=== PATIENT | female | born 1945 | race Caucasian/White ===

== ENCOUNTER 2017-02-19 11:46 | Emergency (ER) | payer MEDICARE | END 2017-02-19 11:52 | disposition left against medical advice (07) | LOC: UCEAST 11:46 | DX: S99.929A Unspecified injury of unspecified foot, initial encounter (principal); X58.XXXA Exposure to other specified factors, initial encounter; Y92.9 Unspecified place or not applicable ==

== ENCOUNTER 2017-03-30 07:49 | Day surgery (SDC) | payer MEDICARE ==
--- NOTE | 2017-03-12 09:47 | HP ---
PREOPERATIVE HISTORY AND PHYSICAL: DATE OF ADMISSION/SURGERY: 03/30/17 [facility] DATE OF OFFICE VISIT/ENCOUNTER: 03/07/17 ATTENDING SURGEON: Zenaida Santos MD * (DICTATED BY JAMAL CISNEROS) PROCEDURE: Excision mass, left index finger. ENAMEL BUFFER: Dr. Fernández. PRIMARY CARE PROVIDER: Dr. Swain. CHIEF COMPLAINT: Left index finger mass. HISTORY OF PRESENT ILLNESS: This is a 72-year-old female, who complaints of lump on the dorsal aspect of her left index finger. She denies any injury. She denies any pain, but it is quite bothersome and it gets in the way with use of her hand. The lump has been present for a few months. The patient denies any associated numbness or tingling. She would like to have it removed surgically. The patient has a history of atrial fibrillation, cardiomyopathy, and coronary artery disease. She is on Xarelto and we will plan on having her stay on that perioperatively. We will also obtain clearance from her thread cutter tender, Dr. Fernández, prior to surgery. PAST MEDICAL HISTORY: 1. Cardiomyopathy. 2. Coronary artery disease. 3. Atrial fibrillation. 4. Arthritis. 5. Hypertension. 6. Hypercholesterolemia. 7. Migraine headaches. PAST SURGICAL HISTORY: 1. Gastric bypass. 2. Plastic surgery - under artem zaman. 3. Cholecystectomy. 4. Appendectomy. 5. Cardiac catheterization in 2014. CURRENT MEDICATIONS: 1. Amiodarone HCl 200 mg daily. 2. Aspirin 81 mg daily. 3. Atorvastatin calcium 20 mg daily. 4. B12 injection 1 q. month. 5. Caltrate plus D 600/800 twice a day. 6. Hydromorphone HCl ER 8 mg 1 tab b.i.d. as needed for migraine pain. 7. Lisinopril 10 mg daily. 8. Magnesium oxide 500 mg b.i.d. 9. Metoprolol succinate ER 100 mg daily. 10. Oxycodone HCl p.r.n. 11. Torsemide 10 mg 1 tablet daily p.r.n. 12. Vitamin D3 1000 units 2 tabs daily. 13. Xarelto 20 mg daily. ALLERGIES: No known drug allergies. FAMILY MEDICAL HISTORY: Heart disease, diabetes, and cancer. SOCIAL HISTORY: The patient is retired. She denies smoking cigarettes, denies recreational drug use, and denies alcohol use. REVIEW OF SYSTEMS: General: Positive for fatigue, negative for fevers, chills , or night sweats. No known anesthesia problems. HEENT: Positive for migraine headaches. egative for lightheadedness or syncopal episodes. Integumentary: Negative for abrasions, lesions, or open wounds. Cardiothoracic : Positive for palpitations and hypertension. Negative for chest pain or edema. Pulmonary: Positive for shortness of breath with exertion. Negative for chronic cough or COPD. GI: Negative for nausea, vomiting, diarrhea, constipation, or GERD. : Negative for nocturia, urinary frequency, urgency, history of UTIs, or kidney problems. Musculoskeletal: Positive for current complaint. Positive for arthritis. Negative for chronic or intermittent back pain or history of fractures. Neurologic: Negative for paresthesias, numbness, history of seizures, stroke, or epilepsy. Endocrine: Negative for diabetes or thyroid issues. Hematologic: Positive for easy bruising and bleeding secondary to Xarelto. Negative for history of DVT. Infectious Disease: Negative for history of MRSA, hepatitis C, or HIV. PHYSICAL EXAMINATION GENERAL: Well-developed, well-nourished, 72-year-old female, in no acute distress. VITAL SIGNS: Height 5 feet 7 inches, weight 195 pounds. Pulse rate 76, blood pressure 134/84. HEENT: Normocephalic, atraumatic. Pupils are equal, round, and reactive to light and accommodation. Extraocular movements are intact. NECK: Supple. No palpable lymph nodes. Throat is clear. PULMONARY: Lungs are clear to auscultation bilaterally. No wheezes, rales, or rhonchi. CARDIOVASCULAR: Regular rate and rhythm. S1 and S2. No murmurs, rubs, or gallops. No edema. ABDOMEN: Positive bowel sounds, soft, nontender. NEUROLOGICAL: Alert and oriented x3. Cranial nerves II through XII are intact. Sensation is intact to light touch. MUSCULOSKELETAL: On exam of her left hand, she has a cystic mass on the dorsal aspect of the left index finger DIP joint, is minimally tender to palpation. She has good range of motion in flexion and extension of the finger at the DIP joint. She can make a fist. The skin is quite thinned over the top of the mass , but there are no open areas. Neurovascular function is intact. DIAGNOSTIC STUDIES: X-ray AP, lateral, and oblique, of the left index finger showed mild degenerative changes. IMPRESSION: Left index finger mucous cyst. PLAN: The patient is scheduled to undergo an excision mass, left index finger, with Dr. Santos on 03/30/17. She will return to the office 10 to 14 days postop for followup and suture removal. She has pain medications already at home that she uses for arthritis pain as prescribed by Dr. Swain. We will get cardiac clearance from the patient's thread cutter tender, Dr. Fernández, prior to proceeding with surgery. JAMAL CISNEROS [id number]/[facility] #: [id number] MTDIbeth
[~2017-03-30 07:49] MED LIST: Buffered Lidocaine 0.9% SYRIN* 5 ML/SYR SYRINGE INTRADERM ONE; NS 0.9% 1000 ML* 1,000 ML IV SCH
[2017-03-30] MEDS ORDERED: Midazolam* 1 MG/ML 2 ML VIAL (2 MG) ONE (08:15)
[2017-03-30] MEDS ORDERED: fentaNYL* 50 MCG/ML 2 ML VIAL (100 MCG VIAL) ONE (08:15)
[2017-03-30] MEDS ORDERED: KETAMINE HCL* 50 MG/ML 10 ML VIAL ONE (08:15)
[2017-03-30] MEDS ORDERED: Buffered Lidocaine 0.9% SYRIN* 5 ML/SYR SYRINGE ONE (08:24)
[2017-03-30] MEDS ORDERED: Lidocaine 1% INJ* 10 MG/ML 30 ML SDV ONE (08:37)
[2017-03-30] MEDS ORDERED: Acetaminophen TAB* 325 MG PO PRN (09:12)
[2017-03-30] MEDS ORDERED: oxyCODONE TAB* 5 MG TAB PO PRN (09:12)
[2017-03-30] MEDS ORDERED: Ondansetron INJ* 2 MG/ML VIAL IV PRN (09:12)
[2017-03-30] MEDS ORDERED: Lidocaine 2% PF * 5 ML VIAL ONE (09:18)
[2017-03-30] MEDS ORDERED: Propofol* 10 MG/ML 20 ML BTL IV PUSH ONE (09:18)
[2017-03-30 10:05] VITALS: BP 125/73
--- NOTE | 2017-03-30 10:40 | OP ---
DATE OF OPERATION: 03/30/17 [facility] DATE OF : 49 SURGEON: Zenaida Santos MD. CUSTOMER CARE PROFESSIONAL: JAMAL Zepeda. ANESTHESIOLOGIST: Dr. Feliciano ANESTHESIA: Local MAC. PRE-OP DIAGNOSIS: Left index finger mass. POST-OP DIAGNOSIS: Left index finger mass. OPERATIVE PROCEDURE: Removal left index finger mass. ESTIMATED BLOOD LOSS: Zero. TOURNIQUET TIME: About 10 minutes. INDICATIONS FOR PROCEDURE: Lily is a 72-year-old female with a painful mass on the dorsa aspect of her left index finger DIP joint. She presents for removal. DESCRIPTION OF PROCEDURE: The patient was brought to the operating room, was given a sedation anesthetic, and a local infiltration of 10 cc of 1% plain lidocaine as a digital block of the left index finger. The skin of her left upper extremity was prepped and draped in the usual sterile fashion. A tournicot was placed over the left index finger and than an H-shaped incision was made on the dorsal aspect of the DIP joint. Skin flaps were elevated and the skin was elevated from over the top of the ganglion cyst. There was a large ganglion cyst, and it was dissected off of the nailbed and the extensor tendon, and traced with its stalk down to the DIP joint capsule. The mass was sent for pathology. Both sides of the extensor tendon were incised longitudinally, and the underlying osteophyte removed with a rongeur. The wound was irrigated, and the skin edges reapproximated with 4-0 nylon suture. The wound was dressed with Xeroform, 4x4, Webril, and Coban. The patient tolerated the procedure well, and was brought to the recovery room in good condition. [id number]/[facility] #: [id number] [facility]
== END 2017-03-30 10:00 | disposition home or self-care (01) ==
LOC: OREAST 07:49
PROVIDERS: ATTEND Orthopaedic Surgery
DX: M67.442 Ganglion, left hand (principal); I42.9 Cardiomyopathy, unspecified; I25.10 Atherosclerotic heart disease of native coronary artery without angina pectoris; I48.91 Unspecified atrial fibrillation; I10 Essential (primary) hypertension; E78.00 Pure hypercholesterolemia, unspecified; G43.909 Migraine, unspecified, not intractable, without status migrainosus; Z79.82 Long term (current) use of aspirin; Z79.01 Long term (current) use of anticoagulants
CPT/HCPCS: 88304; J2001; J2250; J2704; J3010

== ENCOUNTER 2017-08-02 13:24 | Emergency (ER) | payer MEDICARE ==
[2017-08-02 13:39] VITALS: BP 136/72
--- NOTE | 2017-08-02 14:32 | RAD ---
HISTORY: Right leg injury, subacute, COMPARISONS: None VIEWS: 3, Frontal and lateral views of the right foreleg FINDINGS: BONE DENSITY: There is diffuse osteopenia. BONES: There is no displaced fracture. JOINTS: There is no arthropathy. ALIGNMENT: There is no dislocation. SOFT TISSUES: Unremarkable. OTHER FINDINGS: None. IMPRESSION: OSTEOPENIA. NO ACUTE OSSEOUS INJURY. THE DEGREE OF OSTEOPENIA MAY MAKE A NONDISPLACED FRACTURE RADIOGRAPHICALLY OCCULT. IF SYMPTOMS PERSIST, RECOMMEND REPEAT IMAGING.
--- NOTE | 2017-08-07 16:15 | UC ---
Lower Extremity/Ankle HPI - HPI Summary HPI Summary: right lower leg bruising pain fell over a chair 5 days ago - History of Current Complaint Chief Complaint: UCLowerExtremity Stated Complaint: LEG INJURY/PAIN Time Seen by Provider: 08/02/17 13:46 Hx Obtained From: Patient Hx Last Menstrual Period: NA ?: No Onset/Duration: Sudden Onset, Lasting Days - 5 Severity Initially: Moderate Severity Currently: Moderate Pain Intensity: 6 Pain Scale Used: 0-10 Numeric Aggravating Factor(s): Nothing Alleviating Factor(s): Rest, Elevation Able to Bear Weight: Yes - Allergies/Home Medications Allergies/Adverse Reactions: Allergies Allergy/AdvReac Type Severity Reaction Status Date / Time No Known Allergies Allergy Verified 08/02/17 13:39 PMH/Surg Hx/FS Hx/Imm Hx Previously Healthy: No Endocrine History: Hypothyroidism Cardiovascular History: Cardiac Disease, Hypertension GI/ History: Gastroesophageal Reflux - Surgical History Surgical History: Yes Surgery Procedure, Year, and Place: Jujunum/illium bypass 1976,,,APP. TUMMY TUCK - COSMETIC, HEMATOMA REMOVED FROM UNDER CHIN. TONSILECTOMY - Family History Known Family History: Positive: Cardiac Disease, Hypertension, Diabetes - Social History Occupation: Retired Lives: With Family Alcohol Use: None Substance Use Type: None Smoking Status (MU): Never Smoked Tobacco - Immunization History Most Recent Influenza Vaccination: 2016 Most Recent Tetanus Shot: UTD Most Recent Pneumonia Vaccination: never Review of Systems Constitutional: Negative Skin: Negative Eyes: Negative ENT: Negative Respiratory: Negative Cardiovascular: Negative Gastrointestinal: Negative Genitourinary: Negative Motor: Negative Neurovascular: Negative Musculoskeletal: Arthralgia - right lower leg Neurological: Negative Psychological: Negative Is Patient Immunocompromised?: No All Other Systems Reviewed And Are Negative: Yes Physical Exam Triage Information Reviewed: Yes Appearance: Well-Appearing, No Pain Distress, Well-Nourished Vital Signs: Initial Vital Signs Temp 97.9 F 08/02/17 13:37 Pulse 81 08/02/17 13:37 Resp 16 08/02/17 13:37 BP 136/72 08/02/17 13:37 Pulse Ox 100 08/02/17 13:37 Vital Signs Reviewed: Yes Eye Exam: Normal Eyes: Positive: Conjunctiva Clear ENT Exam: Normal ENT: Positive: Normal ENT inspection, Hearing grossly normal, Pharynx normal. Negative: Nasal drainage, TMs normal, Tonsillar swelling, Tonsillar exudate, Sinus tenderness Dental Exam: Normal Neck exam: Normal Neck: Positive: Supple, Nontender, No Lymphadenopathy Respiratory Exam: Normal Respiratory: Positive: Chest non-tender, No respiratory distress, No accessory muscle use Cardiovascular Exam: Normal Cardiovascular: Positive: RRR, Pulses Normal, Brisk Capillary Refill Musculoskeletal Exam: Normal Musculoskeletal: Positive: Strength Intact, ROM Intact, Edema @ - anterior right lower leg swelling and eechymosis Neurological Exam: Normal Neurological: Positive: Alert, Muscle Tone Normal Psychological Exam: Normal Skin Exam: Other Skin: Positive: Other - bruising and erythema right anterior lower leg Lower Extremity Course/Dx - Course Course Of Treatment: elevate rest carlos wrap follow with pcp - Differential Dx/Diagnosis Provider Diagnoses: Contusion/hematoma right anterior lower leg Discharge - Discharge Plan Condition: Stable Disposition: HOME Patient Education Materials: Contusion in Adults (ED), Hematoma (ED) Referrals: Manoj Swain MD [Primary Care Provider] - 1 Week
== END 2017-08-02 15:05 | disposition home or self-care (01) ==
LOC: UCEAST 13:24
DX: S80.11XA Contusion of right lower leg, initial encounter (principal); W01.0XXA Fall on same level from slipping, tripping and stumbling without subsequent striking against object, initial encounter; Y93.9 Activity, unspecified; Y92.9 Unspecified place or not applicable; E03.9 Hypothyroidism, unspecified; I51.9 Heart disease, unspecified; I10 Essential (primary) hypertension; K21.9 Gastro-esophageal reflux disease without esophagitis
CPT/HCPCS: 99211; G0463

== ENCOUNTER 2018-07-17 17:43 | Inpatient (IN) | payer MEDICARE ==
[2018-07-17] MEDS ORDERED: Morphine VIAL* 4 MG/ML VIAL (1 ml vial) IV ONE (18:01)
[2018-07-17] MEDS ORDERED: NS 0.9% 1000 ML* 1,000 ML IV ONE (18:03)
--- OUTSIDE RECORDS SUMMARY | 2018-07-17 18:22 | XMS REPORT | Continuity of Care Document ---
:1945 External Reference #:[id number] Author Name Libradoghada Charly Care Team Providers Name Role Phone Godwin Swain MD Primary Care Physician Unavailable Payers Type Date Identification Numbers Payment Provider Subscriber Effective: Policy Number: [id number] Medicare Lily Waite 2011 PayID: [id number] [address] [place] [address] Policy Number: [id number] [facility] Lily Waite PayID: [id number] [address] [place] [address] Advance Directives Description No Information Available Problems Date Description Provider Status Onset: 09/19/2011 Electrocardiogram abnormal Juan Mccrary M.D. Onset: 11/04/2012 Atrial fibrillation Juan Mccrary M.D. Onset: 11/04/2012 Tachycardia Juan Mccrary M.D. Onset: 09/18/2013 Mitral valve disorder Juan Mccrary M.D. Onset: 09/18/2013 Premature beats Juan Mccrary M.D. Onset: 09/18/2013 Supraventricular premature beats Juan Mccrary M.D. Onset: 06/09/2014 Localized, primary osteoarthritis James Amin M.D. Active Onset: 06/23/2014 Myalgia & Myositis Unspecified James Amin M.D. Active Onset: 06/23/2014 Brachial plexus disorder James Amin M.D. Active Onset: 01/28/2015 Primary cardiomyopathy Clint Fernández M.D., [facility], Active [facility] Onset: 01/28/2015 Chronic ischemic heart disease Clint Fernández M.D., [facility], Active [facility] Onset: 02/25/2015 Hypoxemia Fazal Still M.D. Active Onset: 02/25/2015 Disturbance in sleep behavior Fazal Still M.D. 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 [employer] Tobacco Use Start: Unknown Never Smoked Cigarettes Smoking Status Reviewed: 07/01/18 Never Smoked Cigarettes ETOH Use Denies alcohol use Tobacco Use Start: Unknown Patient has never smoked Recreational Drug Use Denies Drug Use Exercise Type/Frequency Exercises sporadically walking, pt has bad knees Allergies, Adverse Reactions, Alerts Description No Known Drug Allergies Medications Medication Date Status Form Strength Qnty SIG Indications Ordering Provider Metoprolol 09/09/ Active Tablets ER 50mg 1 by Clint Succinate ER 2018 24HR mouth Stefek, every day Robson.Faith, [facility] Xarelto 07/30/ Active Tablets 10mg 90tabs 1 by Clint 2016 mouth Stefek, every day Robson.Faith, [facility], [facility] Magnesium Oxide 10/28/ Active Tablets 500mg 180tab take 1 Clint 2015 s tablet by Stefek, mouth bid M.Faith, [facility], [facility] Atorvastatin 05/26/ Active Tablets 20mg 90tabs take 1 Clint Calcium 2015 tablet at Stefek, bedtime Van, [facility], [facility] Caltrate 600+D 02/24/ Active Chewtabs 600-800mg- take 1 Unknown Soft 2014 Unit tablet by mouth once a day Hydromorphone 02/24/ Active T24a 8mg 1 tab Unknown HCL ER 2014 twice a day as needed migrain pain Aspir-81 12/07/ Active Tablets DR 81mg 1 by Unknown 2015 mouth every day B12 Inject 07/01/ Active one q Desean 2008 month SLuma Parra M.D. Vitamin D3 04/24/ Active Tablets 1000Unit 90tabs 2 tab po Thananart, 2007 qd Van Kenney Amiodarone HCL / Active Tablets 200mg 30tabs 1 tab by Desean 0000 mouth S. every day Van Parra Torsemide / Active Tablets 10mg 1 tablet Unknown 0000 po daily if weight is >3lbs as needed Lisinopril / Active Tablets 10mg 90tabs 1 by Clint 0000 mouth Stefek, every day Robson.Faith, [facility] Oxycodone HCL / Active prn Unknown 0000 Oxybutynin / Active Tablets ER 15mg 1 by Unknown Chloride ER 0000 24HR mouth every day Guanfacine HCL / Active Tablets 1mg 90tabs 1 by Unknown 0000 mouth every day Duloxetine HCL / Active Caps DR 60mg 1 by Unknown 0000 Part mouth every day Xarelto 09/29/ Hx Tablets 20mg 90tabs 1 by Clint 2016 - mouth Stefek, 09/09/ every day Van, 2018 [facility] Magnesium Oxide 10/18/ Hx Capsules 400mg 60caps one pill Clint 2016 - twice a Stefek, 10/18/ day M.D., 2015 [facility], [facility] Magnesium Oxide 10/18/ Hx Tablets 400mg 180tab 1 by Clint 2016 - s mouth Stefek, 10/28/ twice a M.D., 2015 [facility], [facility] Metoprolol 07/29/ Hx Tablets ER 100mg 90tabs 1 by Clint Succinate ER 2014 - 24HR mouth Stefek, 09/10/ every day M.D., 2017 [facility], [facility] Atorvastatin 02/24/ Hx Tablets 40mg 90tabs 1 by Clint Calcium 2014 - mouth Stefek, 05/26/ every day M.D., 2014 [facility], [facility] Valium 07/24/ Hx Tablets 5mg 2tabs 1 by Derick Cruz 2013 - mouth 2 Uday, 08/18/ hours M.D. 2014 prior to mri may take one more every 1 hour as needed anxiety Hydromorphone 07/21/ Hx Tablets 2mg 42tabs 1 po tid Derick WORRELL 2013 - prn neck Everest, 07/21/ or arm M.D. 2013 pain Gabapentin 06/22/ Hx Capsules 300mg 90caps 3 by 353.0 Luis Villalta 2013 - mouth Pollack, 12/07/ three M.D. 2014 times a day or as directed. Hydromorphone 04/29/ Hx Tablets 4mg 40tabs 1 -3 by 353.0 Luis JLuma HCL 2013 - mouth Pollack, 07/20/ four M.D. 2013 times a day as needed pain Gabapentin 04/29/ Hx Capsules 300mg 90caps 1 by 353.0 Luis Villalta 2013 - mouth Pollack, 05/10/ three M.D. 2013 times a day or as directed. Oxycodone HCL 04/18/ Hx Tablets 10mg 100tab 1 tablet Other 2012 - s po q6hrs Ordering 07/20/ prn Provider 2013 Bupropion HCL 09/10/ Hx Tablets ER 150mg 30tabs 1 tablet 296.30 Thananart, XL 2008 - 24HR po qday Anne Marie, 09/05/ M.D. 2015 Naproxen 04/16/ Hx Tablets 500mg 60tabs 1 tab po Thananart, 2007 - bid prn Anne Marie, 04/12/ M.D. 2008 Skelaxin 09/04/ Hx Tablets 800mg 30tabs 1 tab po Thananart, 2007 - tid prn Anne Marie, 04/12/ M.D. 2008 Percocet 03/19/ Hx Tablets 5-325mg 40tabs 1-2 tabs Thananart, 2007 - po q6h Anne Marie, 04/12/ prn M.D. 2008 Celexa / Hx Tablets 40mg 30tabs 1 tablet Thananart, 0000 - po qday Anne Marie, 10/08/ M.D. 2014 Oxycodone HCL / Hx Capsules 5mg 1 tab po Unknown 0000 - qid 2008 Digoxin / Hx Tablets 0.25mg 60tabs 1 po qd Unknown 0000 - 2008 Fosamax / Hx Tablets 12tabs one Unknown 0000 - tablet 11/04/ weekly 2012 Dilaudid / Hx Tablets 8mg 180tab 1.5 tabs Unknown 0000 - s po tid 2014 Atorvastatin / Hx Tablets 40mg 1 by Unknown Calcium 0000 - mouth 01/25/ every day 2014 Lisinopril / Hx Tablets 5mg 135tab 1 and 1/2 Clint 0000 - s tabs by Pradeep, 04/19/ mouth M.DLuma, 2014 every day [facility], [facility] Metoprolol / Hx Tablets ER 50mg 90tabs 1 tab by Clint Succinate ER 0000 - 24HR mouth Pradeep, 07/29/ every day M.DLuma, 2014 in the [facility], morning [facility] Duloxetine HCL / Hx 1 tablet Unknown 0000 - po at 02/07/ night 2016 Xenical / Hx Capsules 120mg one Unknown 0000 - capsule 11/16/ by mouth 2017 daily Medications Administered in Office Medication Date Status Form Strength Qnty SIG Indications Ordering Provider Celestone 3 mg Administered Injection Naresh and 3mg 018 Van Conway Depomedrol Administered Injection Naresh 40MG 017 Van Conway Depomedrol Administered Injection Padmini 40MG 017 JAMAL Terry Immunizations CPT Code Status Date Vaccine Lot # [id number] Given 05/27/2009 Influenza Virus 3Yrs & Over [id number] Given 06/01/2008 Influenza Virus 3Yrs & Over [id number] Given 06/01/2008 Influenza Virus 3Yrs & Over [id number] Vital Signs Date Vital Result Comment 07/01/2018 1:54pm Height 67.5 inches 5'7.50" Weight 190.00 lb BP Systolic 116 mmHg BP Diastolic 68 mmHg Respiratory Rate 16 /min Pain Level 8 BMI (Body Mass Index) 29.3 kg/m2 06/05/2018 1:47pm Height 67.5 inches 5'7.50" Weight 189.00 lb BP Systolic 124 mmHg BP Diastolic 80 mmHg Respiratory Rate 20 /min Pain Level 10 BMI (Body Mass Index) 29.2 kg/m2 05/03/2018 3:44pm Height 67.5 inches 5'7.50" Weight 189.00 lb w/shoes Heart Rate 68 /min BP Systolic Sitting 136 mmHg Lue reg cuff BP Diastolic Sitting 94 mmHg Lue reg cuff BMI (Body Mass Index) 29.2 kg/m2 Ejection Fraction 50-55% Echo 05/24/16 10/03/2017 1:20pm Height 67.5 inches 5'7.50" Weight 193.00 lb w/ shoes Heart Rate 72 /min BP Systolic Sitting 128 mmHg lue reg cuff BP Diastolic Sitting 84 mmHg lue reg cuff BP Systolic Standing 128 mmHg lue reg cuff BP Diastolic Standing 84 mmHg lue reg cuff Respiratory Rate 18 /min BMI (Body Mass Index) 29.8 kg/m2 Ejection Fraction 50-55% echo 05/24/16 09/10/2017 1:12pm Height 67.5 inches 5'7.50" Weight 197.00 lb w/ shoes Heart Rate 72 /min BP Systolic Sitting 138 mmHg lue reg cuff BP Diastolic Sitting 92 mmHg lue reg cuff BP Systolic Standing 128 mmHg lue reg cuff BP Diastolic Standing 88 mmHg lue reg cuff Respiratory Rate 18 /min BMI (Body Mass Index) 30.4 kg/m2 Ejection Fraction 50-55% echo 05/24/16 06/13/2017 2:55pm Height 67.5 inches 5'7.50" Weight 180.00 lb Heart Rate 60 /min BP Systolic 130 mmHg BP Diastolic 88 mmHg Body Temperature 97.9 F Pain Level 6 BMI (Body Mass Index) 27.8 kg/m2 05/02/2017 12:52pm Height 67 inches 5'7" Weight 180.00 lb BP Systolic 129 mmHg BP Diastolic 82 mmHg Body Temperature 97.2 F Pain Level 0 BMI (Body Mass Index) 28.2 kg/m2 04/11/2017 1:09pm Height 67 inches 5'7" Weight 180.00 lb BP Systolic 130 mmHg BP Diastolic 82 mmHg Body Temperature 97.6 F Pain Level 0 BMI (Body Mass Index) 28.2 kg/m2 03/12/2017 2:03pm Height 67 inches 5'7" Weight 190.00 lb w/o shoes Heart Rate 68 /min BP Systolic Sitting 132 mmHg Ra reg cuff BP Diastolic Sitting 88 mmHg Ra reg cuff BP Systolic Standing 140 mmHg Ra reg cuff BP Diastolic Standing 90 mmHg Ra reg cuff BMI (Body Mass Index) 29.8 kg/m2 Ejection Fraction 50% - 55% echo 05/24/16 03/07/2017 12:59pm Height 67 inches 5'7" Weight 195.00 lb Heart Rate 76 /min BP Systolic 134 mmHg BP Diastolic 84 mmHg BMI (Body Mass Index) 30.5 kg/m2 02/26/2017 11:09am Height 67 inches 5'7" Weight 180.00 lb Heart Rate 72 /min BP Systolic 130 mmHg BP Diastolic 80 mmHg Respiratory Rate 16 /min Body Temperature 97.2 F BMI (Body Mass Index) 28.2 kg/m2 2017 10:19am Height 67 inches 5'7" Weight 185.00 lb Heart Rate 67 /min BP Systolic 117 mmHg BP Diastolic 71 mmHg Body Temperature 96.6 F BMI (Body Mass Index) 29.0 kg/m2 12/06/2016 1:04pm Height 68 inches 5'8" Weight 195.00 lb BP Systolic 115 mmHg BP Diastolic 72 mmHg Respiratory Rate 17 /min Body Temperature 97.7 F Pain Level 10 BMI (Body Mass Index) 29.6 kg/m2 09/13/2016 1:30pm Height 68 inches 5'8" Weight 195.00 lb Heart Rate 68 /min BP Systolic Sitting 124 mmHg BP Diastolic Sitting 72 mmHg Respiratory Rate 16 /min Pain Level 2 BMI (Body Mass Index) 29.6 kg/m2 06/07/2016 3:25pm Height 68 inches 5'8" Weight 196.00 lb Heart Rate 78 /min 88 BP Systolic Sitting 108 mmHg right arm, reg cuff BP Diastolic Sitting 82 mmHg right arm, reg cuff BP Systolic Standing 106 mmHg right arm, reg cuff BP Diastolic Standing 82 mmHg right arm, reg cuff Respiratory Rate 14 /min BMI (Body Mass Index) 29.8 kg/m2 Ejection Fraction 50-55% 05/24/16 04/19/2016 1:33pm Height 68 inches 5'8" Weight 196.00 lb Heart Rate 72 /min 86 BP Systolic Sitting 126 mmHg right arm, reg cuff BP Diastolic Sitting 80 mmHg right arm, reg cuff BP Systolic Standing 122 mmHg right arm, reg cuff BP Diastolic Standing 80 mmHg right arm, reg cuff Respiratory Rate 14 /min BMI (Body Mass Index) 29.8 kg/m2 Ejection Fraction 45-50% 03/25/15 02/09/2016 3:27pm Height 68 inches 5'8" Weight 187.00 lb Heart Rate 72 /min 86 BP Systolic Sitting 122 mmHg right arm, reg cuff BP Diastolic Sitting 84 mmHg right arm, reg cuff BP Systolic Standing 116 mmHg right arm, reg cuff BP Diastolic Standing 84 mmHg right arm, reg cuff Respiratory Rate 14 /min BMI (Body Mass Index) 28.4 kg/m2 Ejection Fraction 45-50% 03/25/15 10/15/2015 3:09pm Height 68 inches 5'8" Weight 191.00 lb with shoes Heart Rate 64 /min 72 BP Systolic Sitting 134 mmHg right arm, reg cuff BP Diastolic Sitting 86 mmHg right arm, reg cuff BP Systolic Standing 128 mmHg right arm, reg cuff BP Diastolic Standing 86 mmHg right arm, reg cuff Respiratory Rate 14 /min BMI (Body Mass Index) 29.0 kg/m2 Ejection Fraction 45-50% 03/25/15 09/06/2015 1:08pm Height 68 inches 5'8" Weight 186.00 lb with boots Heart Rate 76 /min 82 BP Systolic Sitting 108 mmHg right arm, reg cuff BP Diastolic Sitting 66 mmHg right arm, reg cuff BP Systolic Standing 106 mmHg right arm, reg cuff BP Diastolic Standing 66 mmHg right arm, reg cuff Respiratory Rate 14 /min BMI (Body Mass Index) 28.3 kg/m2 Ejection Fraction 45-50% 03/25/15 04/20/2015 3:16pm Height 68 inches 5'8" Weight 175.00 lb Heart Rate 72 /min 80 BP Systolic Sitting 104 mmHg left arm, reg cuff BP Diastolic Sitting 78 mmHg left arm, reg cuff BP Systolic Standing 104 mmHg left arm, reg cuff BP Diastolic Standing 76 mmHg left arm, reg cuff Respiratory Rate 14 /min BMI (Body Mass Index) 26.6 kg/m2 Ejection Fraction 45-50% 03/25/15 03/29/2015 3:15pm Height 68 inches 5'8" Weight 177.00 lb Heart Rate 76 /min 82 BP Systolic Sitting 130 mmHg right arm, reg cuff BP Diastolic Sitting 86 mmHg right arm, reg cuff BP Systolic Standing 126 mmHg right arm, reg cuff BP Diastolic Standing 84 mmHg right arm, reg cuff Respiratory Rate 12 /min BMI (Body Mass Index) 26.9 kg/m2 Ejection Fraction 45-50% 03/25/15 03/03/2015 10:32am Height 68 inches 5'8" Weight 176.00 lb Heart Rate 64 /min BP Systolic 130 mmHg BP Diastolic 70 mmHg Respiratory Rate 12 /min O2 % BldC Oximetry 94 % BMI (Body Mass Index) 26.8 kg/m2 02/25/2015 2:48pm Height 68 inches 5'8" Weight 176.12 lb Heart Rate 76 /min Respiratory Rate 12 /min Body Temperature 98.6 F O2 % BldC Oximetry 99 % BMI (Body Mass Index) 26.8 kg/m2 Neck Circumference in inches 16 02/22/2015 1:45pm Height 68 inches 5'8" Weight 172.00 lb Heart Rate 64 /min 72 BP Systolic Sitting 122 mmHg left arm, reg cuff BP Diastolic Sitting 88 mmHg left arm, reg cuff BP Systolic Standing 108 mmHg left arm, reg cuff BP Diastolic Standing 82 mmHg left arm, reg cuff Respiratory Rate 14 /min BMI (Body Mass Index) 26.1 kg/m2 Ejection Fraction 35% 02/10/15 01/28/2015 10:39am Height 68 inches 5'8" Weight 179.00 lb with shoes Heart Rate 70 /min 70 sit and stand HR BP Systolic 97 mmHg LA reg cuff BP Diastolic 70 mmHg LA reg cuff BP Systolic Sitting 100 mmHg LA reg cuff BP Diastolic Sitting 70 mmHg LA reg cuff Respiratory Rate 17 /min BMI (Body Mass Index) 27.2 kg/m2 Ejection Fraction 25-30% date 12/15/14 ECHO 12/08/2014 1:45pm Height 68 inches 5'8" Weight 185.25 lb w/ shoes Heart Rate 108 /min BP Systolic Sitting 130 mmHg LA, reg BP Diastolic Sitting 102 mmHg LA, reg BMI (Body Mass Index) 28.2 kg/m2 10/09/2014 2:19pm Height 68 inches 5'8" Weight 188.00 lb Heart Rate 108 /min reg BP Systolic 140 mmHg LA reg BP Diastolic 92 mmHg LA reg BMI (Body Mass Index) 28.6 kg/m2 08/19/2014 3:59pm Height 68 inches 5'8" Weight 188.00 lb Heart Rate 76 /min BP Systolic Sitting 140 mmHg BP Diastolic Sitting 92 mmHg Respiratory Rate 16 /min BMI (Body Mass Index) 28.6 kg/m2 07/21/2014 1:56pm Height 68 inches 5'8" Weight 180.00 lb Heart Rate 72 /min BP Systolic Sitting 148 mmHg BP Diastolic Sitting 90 mmHg Respiratory Rate 16 /min BMI (Body Mass Index) 27.4 kg/m2 06/23/2014 3:52pm Height 68 inches 5'8" Weight 185.00 lb Heart Rate 100 /min BP Systolic Sitting 160 mmHg BP Diastolic Sitting 100 mmHg Pain Level 10 BMI (Body Mass Index) 28.1 kg/m2 06/09/2014 1:55pm Height 68 inches 5'8" Weight 184.50 lb Heart Rate 96 /min BP Systolic Sitting 158 mmHg BP Diastolic Sitting 80 mmHg Pain Level 5 BMI (Body Mass Index) 28.1 kg/m2 05/11/2014 2:43pm Height 68 inches 5'8" Weight 179.00 lb Heart Rate 82 /min BP Systolic Sitting 140 mmHg BP Diastolic Sitting 88 mmHg Pain Level 5 R arm BMI (Body Mass Index) 27.2 kg/m2 04/29/2014 9:42am Height 68 inches 5'8" Weight 179.00 lb Heart Rate 96 /min BP Systolic Sitting 136 mmHg BP Diastolic Sitting 94 mmHg Pain Level 9 R arm BMI (Body Mass Index) 27.2 kg/m2 09/18/2013 2:09pm Height 68 inches 5'8" Weight 187.00 lb Heart Rate 100 /min BP Systolic Sitting 146 mmHg BP Diastolic Sitting 82 mmHg BMI (Body Mass Index) 28.4 kg/m2 11/04/2012 2:45pm Height 68 inches 5'8" Weight 189.00 lb Heart Rate 94 /min BP Systolic 132 mmHg BP Diastolic 88 mmHg BMI (Body Mass Index) 28.7 kg/m2 09/19/2011 9:17am Height 68 inches 5'8" Weight 191.00 lb Heart Rate 89 /min BP Systolic Sitting 128 mmHg BP Diastolic Sitting 72 mmHg BMI (Body Mass Index) 29.0 kg/m2 09/16/2010 2:47pm Height 68 inches 5'8" Weight 194.00 lb Heart Rate 113 /min BP Systolic Sitting 110 mmHg sit 112/82 stand BP Diastolic Sitting 80 mmHg sit 112/82 stand BMI (Body Mass Index) 29.5 kg/m2 10/06/2009 10:47am Height 68 inches 5'8" Weight 193.00 lb Heart Rate 64 /min BP Systolic Sitting 120 mmHg L BP Diastolic Sitting 82 mmHg L BMI (Body Mass Index) 29.3 kg/m2 07/01/2009 2:11pm Height 68 inches 5'8" Weight 190.00 lb Heart Rate 81 /min BP Systolic Sitting 144 mmHg L BP Diastolic Sitting 90 mmHg L BMI (Body Mass Index) 28.9 kg/m2 04/12/2009 11:30am Height 68 inches 5'8" Weight 191.00 lb Heart Rate 76 /min BP Systolic Sitting 124 mmHg BP Diastolic Sitting 80 mmHg BMI (Body Mass Index) 29.0 kg/m2 10/12/2008 2:00pm Weight 197.00 lb Heart Rate 76 /min BP Systolic Sitting 128 mmHg BP Diastolic Sitting 84 mmHg 09/10/2008 2:26pm Height 68 inches 5'8" Weight 199.00 lb Heart Rate 74 /min BP Systolic Sitting 134 mmHg BP Diastolic Sitting 86 mmHg BMI (Body Mass Index) 30.3 kg/m2 06/22/2008 11:30am Height 68 inches 5'8" Weight 198.00 lb Heart Rate 68 /min BP Systolic Sitting 136 mmHg BP Diastolic Sitting 82 mmHg BMI (Body Mass Index) 30.1 kg/m2 04/16/2008 11:21am Height 68 inches 5'8" Weight 196.00 lb Heart Rate 88 /min BP Systolic Sitting 106 mmHg BP Diastolic Sitting 76 mmHg BMI (Body Mass Index) 29.8 kg/m2 Results Test Date Facility Test Result H/L Range Note Laboratory test finding 06/12/2018 [facility] Alt 21 U/L N 7- [address] [place] [address] [phone] Ast (Sgot) 16 U/L N 13-39 Basic Metabolic Panel 06/12/2018 [facility] Sodium 137 mmol/L N 135-[address] [place] [address] [phone] Potassium 4.5 mmol/L N 3.5-5.0 Chloride 104 mmol/L N 101-111 Co2 Carbon Dioxide 26 mmol/L N 22-32 Anion Gap 7 mmol/L N 2-11 Glucose 95 mg/dL N 70-100 Blood Urea Nitrogen 23 mg/dL N 6-24 Creatinine 1.16 mg/dL High 0.51-0.95 BUN/Creatinine Ratio 19.8 N 8-20 Calcium 9.1 mg/dL N 8.6-10.3 Egfr Non- 46.1 >60 Egfr 55.7 >60 1 Laboratory test 06/12/2018 [facility] TSH (Thyroid 1.56 N 0.34 -5.[address] Stim Horm) mcIU/[place] [address] [phone] Laboratory test 10/09/2017 [facility] Alt (SGPT) 23 U/L N 7- 52 2, [address] [place] [address] [phone] Ast (Sgot) 19 U/L N 13-39 4 Thyroid Panel 10/09/2017 [facility] Free T4 (Free 0.86 ng/dL N 0.61-1.[address] Thyroxine) [place] [address] [phone] Thyroxine 7.90 g/mL N 6.09-12.23 6 TSH (Thyroid Stim Horm) 1.17 mcIU/mL N 0.34-5.60 7 Laboratory test 10/09/2017 [facility] Alkaline 76 U/L N 34- 104 [address] [place] [address] [phone] Total Bilirubin 0.50 mg/dL N 0.2-1.0 9 Laboratory test 03/30/2017 [facility] Surgical SEE RESULT 10, [address] [place] [address] [phone] Thyroid Panel 03/19/2017 [facility] Free T4 (Free 0.88 ng/dL N 0.61- [address] Thyroxine) 1.12 [place], [place] [id number] [phone] Thyroxine 7.92 g/mL N 6.09-12.23 13 TSH (Thyroid Stim Horm) 1.27 mcIU/mL N 0.34-5.60 14 Laboratory test finding 03/19/2017 [facility] Alt 20 U/L N 7- [address] [place] [address] [phone] Ast (Sgot) 19 U/L N 13-39 16 Alkaline Phosphatase 78 U/L N 34-104 17 Laboratory test finding 11/24/2016 [facility] Alt (SGPT) 24 U/L N 7-[address] [place] [address] [phone] Ast (Sgot) 20 U/L N 13-39 19 Lipid Profile 11/24/2016 [facility] Triglycerides 146 mg/dL N 20 (Trig/Chol/HDL) [address] [place] [address] [phone] Cholesterol 102 mg/dL N 21 HDL Cholesterol 39.5 mg/dL N 22 LDL Cholesterol 33 mg/dL N 23 Thyroid Panel 09/08/2016 [facility] Free T4 (Free 0.76 ng/dL N 0.61-1.[address] Thyroxine) [place] [address] [phone] Thyroxine 7.32 ?g/dL N 6.09-12.23 25 TSH (Thyroid Stim Horm) 1.03 mcIU/mL N 0.34-5.60 26 Laboratory test finding 09/08/2016 [facility] Ast (Sgot) 19 U/L N 13-[address] [place] [address] [phone] Alt (SGPT) 21 U/L N 7-52 28 Thyroid Panel 02/16/2016 [facility] Free T4 (Free 0.96 ng/dL N 0.61-1.[address] Thyroxine) [place] [address] [phone] Thyroxine 8.05 ?g/dL N 6.09-12.23 30 TSH (Thyroid Stim Horm) 0.93 ?IU/mL N 0.34-5.60 31 Laboratory test finding 02/16/2016 [facility] Alt 27 U/L N 7- [address] [place] [address] [phone] Ast 20 U/L N 13-39 33 Alkaline Phosphatase 78 U/L N 34-104 34 Total Bilirubin 0.50 mg/dL N 0.2-1.0 35 Laboratory test 11/18/2015 [facility] Magnesium 1.9 mg/dL N 1.9-2.7 36 finding [address] [place] [address] [phone] Laboratory test 10/28/2015 [facility] Magnesium 1.7 mg/dL Low 1.9-2.7 37 finding [address] [place] [address] [phone] Laboratory test 10/18/2015 [facility] Magnesium 1.6 mg/dL Low 1.9-2.7 38 [place] [address] [phone] Basic Metabolic 10/18/2015 [facility] Sodium 135 mmol/L N 133- 145 Panel [address] [place] [address] [phone] Potassium 4.0 mmol/L N 3.5-5.0 Chloride 103 mmol/L N 101-111 Co2 Carbon Dioxide 25 mmol/L N 22-32 Anion Gap 7 mmol/L N 2-11 Glucose 97 mg/dL N 70-100 Blood Urea Nitrogen 13 mg/dL N 6-24 Creatinine 1.12 mg/dL High 0.51-0.95 BUN/Creatinine Ratio 11.6 N 8-20 Calcium 9.0 mg/dL N 8.6-10.3 Egfr Non- 48.4 N >60 Egfr 62.2 N >60 39 Thyroid Panel 08/03/2015 [facility] Free T4 (Free 0.88 ng/mL N 0.61-1.12 [facility] Thyroxine) [place] [address] [phone] Thyroxine 6.33 ?g/dL N 6.09-12.23 TSH (Thyroid Stim Horm) 1.00 ?IU/mL N 0.34-5.60 Liver Function 08/03/2015 [facility] Total Protein 6.9 g/dL N 6.4-8.9 Panel [address] [place] [address] [phone] Albumin 4.4 g/dL N 3.2-5.2 Globulin 2.5 g/dL N 2-4 Albumin/Globulin Ratio 1.8 N 1-3 Total Bilirubin 0.40 mg/dL N 0.2-1.0 Direct Bilirubin 0.10 mg/dL N 0.03-0.18 Indirect Bilirubin 0.3 mg/dL N 0.3-1.0 Alkaline Phosphatase 72 U/L N 34-104 Alt 20 U/L N 7-52 Ast 19 U/L N 13-39 Lipid Profile 05/25/2015 [facility] Triglycerides 204 mg/dL N 40 (Trig/Chol/HDL) [address] [place] [address] [phone] Cholesterol 100 mg/dL N 41 HDL Cholesterol 34.5 mg/dL N 42 LDL Cholesterol 25 mg/dL N 43 Laboratory test finding 05/25/2015 [facility] Alt 17 U/L N 7- 52 [address] [place] [address] [phone] Ast 16 U/L N 13-39 Comp Metabolic Panel 02/16/2015 [facility] Sodium 131 mmol/L Low 133-145 [address] [place] [address] [phone] Potassium 4.3 mmol/L N 3.5-5.0 Chloride 101 mmol/L N 101-111 Co2 Carbon Dioxide 24 mmol/L N 22-32 Anion Gap 6 mmol/L N 2-11 Glucose 102 mg/dL High 70-100 Blood Urea Nitrogen 17 mg/dL N 6-24 Creatinine 1.08 mg/dL High 0.51-0.95 BUN/Creatinine Ratio 15.7 N 8-20 Calcium 9.2 mg/dL N 8.6-10.3 Total Protein 6.7 g/dL N 6.4-8.9 Albumin 4.3 g/dL N 3.2-5.2 Globulin 2.4 g/dL N 2-4 Albumin/Globulin Ratio 1.8 N 1-3 Total Bilirubin 0.40 mg/dL N 0.2-1.0 Alkaline Phosphatase 70 U/L N 34-104 Alt 29 U/L N 7-52 Ast 22 U/L N 13-39 Egfr Non- 50.5 N >60 Egfr 64.9 N >60 44 Laboratory test 02/16/2015 [facility] B-Type 29 pg/mL N [address] [place] [address] Peptide BNP [phone] CBC No Diff 12/24/2014 [facility] White Blood 11.7 High 4.8-[address] Count 10^3/uL 0.8 [place], [place] [id number] [phone] Red Blood Count 4.83 10^6/uL N 4.0-5.4 Hemoglobin 14.2 g/dL N 12.0-16.0 Hematocrit 42 % N 35-47 Mean Corpuscular Volume 87 fL N 80-97 Mean Corpuscular Hemoglobin 29 pg N 27-31 Mean Corpuscular HGB Conc 34 g/dL N 31-36 Red Cell Distribution Width 13 % N 10.5-15 Platelet Count 299 10^3/uL N 150-450 Mean Platelet Volume 9 um3 N 7.4-10.4 Comp Metabolic Panel 12/24/2014 [facility] Sodium 135 mmol/L N 133-145 [address] [place] [address] [phone] Potassium 4.1 mmol/L N 3.5-5.0 Chloride 102 mmol/L N 101-111 Co2 Carbon Dioxide 28 mmol/L N 22-32 Anion Gap 5 mmol/L N 2-11 Glucose 105 mg/dL High 70-100 Blood Urea Nitrogen 17 mg/dL N 6-24 Creatinine 1.30 mg/dL High 0.51-0.95 BUN/Creatinine Ratio 13.1 N 8-20 Calcium 9.6 mg/dL N 8.6-10.3 Total Protein 7.0 g/dL N 6.4-8.9 Albumin 4.3 g/dL N 3.2-5.2 Globulin 2.7 g/dL N 2-4 Albumin/Globulin Ratio 1.6 N 1-3 Total Bilirubin 0.60 mg/dL N 0.2-1.0 Alkaline Phosphatase 57 U/L N 34-104 Alt 30 U/L N 7-52 Ast 27 U/L N 13-39 Egfr Non- 40.9 N >60 Egfr 52.5 N >60 46 Laboratory test 12/24/2014 [facility] Magnesium 1.8 mg/dL Low 1.9-2.[address] [place] [address] [phone] B Type Natriuretic Peptide 303 pg/mL High 47 Basic Metabolic Panel 12/17/2014 [facility] Sodium 135 mmol/L N 133-145 [address] [place] [address] [phone] Potassium 4.2 mmol/L N 3.5-5.0 Chloride 97 mmol/L Low 101-111 Co2 Carbon Dioxide 30 mmol/L N 22-32 Anion Gap 8 mmol/L N 2-11 Glucose 117 mg/dL High 70-100 Blood Urea Nitrogen 26 mg/dL High 6-24 Creatinine 1.48 mg/dL High 0.51-0.95 BUN/Creatinine Ratio 17.6 N 8-20 Calcium 9.4 mg/dL N 8.6-10.3 Egfr Non- 35.2 N >60 Egfr 45.2 N >60 48 Laboratory test 12/17/2014 [facility] Magnesium 2.0 mg/dL N 1.9-2.[address] [place] [address] [phone] Laboratory test 08/17/2014 Erythrocyte Sed 10 mm/Hr N 0-40 finding Rate Lyme Disease Serology Negative N Negative 49 Protein Electrophoresis 08/17/2014 Total Protein(Pep) 7.0 g/dL N 6.3 - 7.9 Albumin 3.6 g/dL N 3.4-4.7 Alpha-1 Globulin 0.3 g/dL N 0.1-0.3 Alpha-2 Globulin 1.0 g/dL N 0.6-1.0 Beta Globulin 1.0 g/dL N 0.7-1.2 Gamma Globulin 1.2 g/dL N 0.6-1.6 Albumin/Globulin Ratio 1.04 N Impression See Comment N 50 Comp Metabolic Panel 08/17/2014 Sodium 137 mmol/L N 133-145 Potassium 3.8 mmol/L N 3.5-5.0 Chloride 103 mmol/L N 101-111 Co2 Carbon Dioxide 26 mmol/L N 22-32 Anion Gap 8 mmol/L N 2-11 Glucose 98 mg/dL N 70-100 Blood Urea Nitrogen 14 mg/dL N 6-24 Creatinine 0.93 mg/dL N 0.51-0.95 BUN/Creatinine Ratio 15.1 N 8-20 Calcium 8.9 mg/dL N 8.6-10.3 Total Protein 6.8 g/dL N 6.4-8.9 Albumin 4.2 g/dL N 3.2-5.2 Globulin 2.6 g/dL N 2-4 Albumin/Globulin Ratio 1.6 N 1-3 Total Bilirubin 0.60 mg/dL N 0.2-1.0 Alkaline Phosphatase 57 U/L N 34-104 Alt 29 U/L N 7-52 Ast 25 U/L N 13-39 Egfr Non- 60.1 N >60 Egfr 77.3 N >60 51 CBC With 05/01/2014 [facility] White Blood 13.1 10^3/uL High 4.8-10.8 Manual Diff [address] [place] [address] [phone] Red Blood Count 4.83 10^6/uL N 4.0-5.4 Hemoglobin 14.2 g/dL N 12.0-16.0 Hematocrit 43 % N 35-47 Mean Corpuscular Volume 88 fL N 80-97 Mean Corpuscular Hemoglobin 29 pg N 27-31 Mean Corpuscular HGB Conc 33 g/dL N 31-36 Red Cell Distribution Width 13 % N 10.5-15 Platelet Count 231 10^3/uL N 150-450 Mean Platelet Volume 8 um3 N 7.4-10.4 Abs Neutrophils 8.2 10^3/uL High 1.5-7.7 Abs Lymphocytes 3.5 10^3/uL N 1.0-4.8 Abs Monocytes 1.0 10^3/uL High 0-0.8 Abs Eosinophils 0.3 10^3/uL N 0-0.6 Abs Basophils 0.1 10^3/uL N 0-0.2 Abs Nucleated RBC 0.01 10^3/uL N Neutrophil % 64 % N 38-83 Lymphocytes % 26 % N 25-47 Monocytes % 5 % N 0-13 Eosinophils % 3 % N 0-6 Basophil % 1 % N 0-2 Reactive Lymph % 1 % N 0-6 RBC Morphology Normal N Normal Laboratory test 05/01/2014 [facility] Erythrocyte Sed 3 mm/Hr N 0-[address] [place] [address] [phone] C Reactive Protein < 0.10 mg/L N < 5.00 52 Comp Metabolic Panel 05/01/2014 [facility] Sodium 134 mmol/L N 133-[address] [place] [address] [phone] Potassium 4.1 mmol/L N 3.7-5.6 Chloride 100 mmol/L Low 101-111 Co2 Carbon Dioxide 27 mmol/L N 22-32 Anion Gap 7 mmol/L N 2-11 Glucose 100 mg/dL N 70-100 Blood Urea Nitrogen 22 mg/dL N 6-24 Creatinine 1.02 mg/dL High 0.51-0.95 BUN/Creatinine Ratio 21.6 High 8-20 Calcium 8.7 mg/dL N 8.6-10.3 Total Protein 6.7 g/dL N 6.4-8.9 Albumin 4.1 g/dL N 3.2-5.2 Globulin 2.6 g/dL N 2-4 Albumin/Globulin Ratio 1.6 N 1-3 Total Bilirubin 0.40 mg/dL N 0.2-1.0 Alkaline Phosphatase 63 U/L N 34-104 Alt 46 U/L N 7-52 Ast 37 U/L N 13-39 Egfr Non- 54.1 N >60 Egfr 69.5 N >60 53 Laboratory test 11/06/2012 [facility] TSH (Thyroid 5.32 0.34- 5.[address] Stimulating miu/[place] [address] Horm) [phone] Basic Metabolic 11/06/2012 [facility] Sodium 139 mmol/L 133- [address] [place] [address] [phone] Potassium 4.0 mmol/L 3.5-5.0 Chloride 105 mmol/L 101-111 Co2 Carbon Dioxide 27.0 mmol/L 22-32 Anion Gap 7.0 mmol/L 2-11 Glucose 98 mg/dL 70-100 Blood Urea Nitrogen 13 mg/dL 6-24 Creatinine 1.20 mg/dL 0.50-1.40 BUN/Creatinine Ratio 10.8 8-20 Calcium 9.1 mg/dL 8.1-9.9 Egfr Non- 45.1 >60 Egfr 58.0 >60 54 CBC Auto Diff 11/06/2012 [facility] White Blood 10.1 10^3/uL 4.8-10.[address] [place] [address] [phone] Red Blood Count 4.58 10^6/uL 4.0-5.4 Hemoglobin 13.7 g/dL 12.0-16.0 Hematocrit 41 % 35-47 Mean Corpuscular Volume 89 fL 80-97 Mean Corpuscular Hemoglobin 30 pg 27-31 Mean Corpuscular HGB Conc 34 g/dL 31-36 Red Cell Distribution Width 13 % 10.5-15 Platelet Count 203 10^3/uL 150-450 Mean Platelet Volume 8 um3 7.4-10.4 Abs Neutrophils 5.2 10^3/uL 1.5-7.7 Abs Lymphocytes 3.3 10^3/uL 1.0-4.8 Abs Monocytes 1.0 10^3/uL High 0-0.8 Abs Eosinophils 0.4 10^3/uL 0-0.6 Abs Basophils 0.1 10^3/uL 0-0.2 Abs Nucleated RBC 0 10^3/uL Granulocyte % 52.2 % 38-83 Lymphocyte % 33.1 % 25-47 Monocyte % 9.6 % High 1-9 Eosinophil % 4.0 % 0-6 Basophil % 1.1 % 0-2 Nucleated Red Blood Cells % 0 Comp Metabolic Panel 04/12/2009 [facility] Sodium 134 mmol/L Low 135-145 [address] [address] [phone] Potassium 3.7 mmol/L 3.5-5.0 Chloride 105 mmol/L 101-111 Co2 (Carbon Dioxide) 23.0 mmol/L 22-32 Anion Gap 6.0 mmol/L 2-11 55 Glucose 112 mg/dL High 70-100 56 BUN 13 mg/dL 6-24 Creatinine 1.00 mg/dL 0.50-1.40 One Over Creatinine 1.00 BUN/Creatinine Ratio 13.0 8-20 Calcium 8.7 mg/dL 8.1-9.9 57 Total Protein 6.0 GM/DL Low 6.2-8.1 Albumin 3.7 GM/DL 3.2-5.2 Globulin 2.3 GM/DL 2-4 Albumin/Globulin Ratio 1.6 1-3 Bilirubin Total 0.6 mg/dL 0.4-1.5 58 Alkaline Phosphatase 109 U/L 30-110 Alt (SGPT) 32 U/L 14-54 Ast (Sgot) 25 U/L 12-42 eGFR Non- 59.7 > 60 eGFR 72.3 > 60 59 Laboratory test finding 04/12/2009 [facility] Lipase 65 U/L High 22-[address] [place] [address] [phone] Amylase 209 U/L High 30-125 Vitamin D, 25 10/26/2008 [facility] 25-Hydroxy Vitamin 16 ng/mL () Hydroxy [address] D2 [place] [address] [phone] 25-Hydroxy Vitamin D3 4.0 ng/mL () 25-Hydroxy Vitamin D Total 20 ng/mL Abnormal () 60 Laboratory test 10/26/2008 [facility] Vitamin A 396 g/L 325 -[address] (Retinol) [place] [address] [phone] Vitamin E 5.6 mg/L 5.5-17.0 62 Vitamin D, 25 04/17/2008 [facility] 25-Hydroxy Vitamin 12 ng/mL () Hydroxy [address] [address] [phone] 25-Hydroxy Vitamin D3 12 ng/mL () 25-Hydroxy Vitamin D Total 24 ng/mL Abnormal () 63 1 Because ethnic data is not always readily available, this report includes an eGFR for both -Americans and non- Americans. The National Kidney Disease Education Program (NKDEP) does not endorse the use of the MDRD equation for patients that are not between the ages of 18 and 70, are , have extremes of body size, muscle mass, or nutritional status, or are non- or non-. According to the National Kidney Foundation, irrespective of diagnosis, the stage of the disease is based on the level of kidney function: Stage Description GFR(mL/min/1.73 m(2)) 1 Kidney damage with normal or decreased GFR 90 2 Kidney damage with mild decrease in GFR 60-89 3 Moderate decrease in GFR 30-59 4 Severe decrease in GFR 15-29 5 Kidney failure <15 (or dialysis) 2 Assess for amiodarone toxicity. Copirs to Dr. Swain 3 Assess for amiodarone toxicity. Copirs to Dr. Swain 4 Assess for amiodarone toxicity. Copirs to Dr. Swain 5 Assess for amiodarone toxicity. Copirs to Dr. Swain 6 Assess for amiodarone toxicity. Copirs to Dr. Swain 7 Assess for amiodarone toxicity. Copirs to Dr. Swain 8 Assess for amiodarone toxicity. Copirs to Dr. Swain 9 Assess for amiodarone toxicity. Copirs to Dr. Swain 10 [id number] SEE RESULT BELOW Name: LILY WAITE : [address]: Zenaida Santos MD Acct: [id number] Unit: [id number] AGE: 72 Location: [facility] Re03/30/17 SEX: F Status: [facility] SPEC: [id number] ALFREDO: 03/30/[address] [facility] [address]: Zenaida Santos MD REQ: [id number] RECD: 03/30/17 STATUS: SOUT _ ORDERED: LEVEL 3 COMMENTS: [id number] FINAL DIAGNOSIS Soft tissue, left index finger, excision: -- Ganglion cyst. PRE-OPERATIVE DIAGNOSIS Left index finger mass GROSS DESCRIPTION The specimen is received in formalin labeled, Left Index Finger Mass, and consists of a 1.1 x 0.7 by up to 0.2 cm rico-white irregular rubbery fibrous tissue fragment which is serially sectioned and entirely submitted in one cassette. Signed (signature on file) Sean Castellon MD 1329 END OF REPORT * ML=Testing performed at Main Lab DEPARTMENT OF PATHOLOGY, [address] [place] [address] Sean Castellon M.D. Director [facility] # [id number] [address] Godwin Swain, Assess for amiodarone toxicity. [address] Godwin Swain, Assess for amiodarone toxicity. [address] Godwin Swain, Assess for amiodarone toxicity. [address] Godwin Swain, Assess for amiodarone toxicity. [address] Godwin Swain, Assess for amiodarone toxicity. [address] Godwin Swain, Assess for amiodarone toxicity. [address] Swain [address] Swain 20 Desirable <150 Borderline high 150-199 High 200-499 Very High >500 21 Desirable <200 Borderline high 200-239 High >239 22 Low <40 Desirable: 40-60 High: >60 23 Desirable: <100 mg/dL Near Optimal: 100-129 mg/dL Borderline High: 130-159 mg/dL High: 160-189 mg/dL Very High: >189 mg/dL 24 to be drawn in Aug 2016., copy to Dr. Swain 25 to be drawn in Aug 2016., copy to Dr. Swain 26 to be drawn in Aug 2016., copy to Dr. Swain 27 to be drawn in Aug 2016., copy to Dr. Swain 28 to be drawn in Aug 2016., copy to Dr. Swain [address] Swain , assess for amiodarone toxicity. Copy Result to: GODWIN SWAIN ([id number]) [address] Swain , assess for amiodarone toxicity. Copy Result to: GODWIN SWAIN ([id number]) [address] Swain , assess for amiodarone toxicity. Copy Result to: GODWIN SWAIN ([id number]) [address] Swain , assess for amiodarone toxicity. Copy Result to: GODWIN SWAIN ([id number]) [address] Swain , assess for amiodarone toxicity. Copy Result to: GODWIN SWAIN ([id number]) [address] Swain , assess for amiodarone toxicity. Copy Result to: OGDWIN SWAIN ([id number]) [address] Swain , assess for amiodarone toxicity. Copy Result to: GODWIN SWAIN ([id number]) 36 to be done after 2 weeks on the increased magnesium oxide. Copy to Dr. Swain 37 to be obtained after one week on the magnesium, copy to Dr. Swain. [address] Swain 39 Because ethnic data is not always readily available, this report includes an eGFR for both -Americans and non- Americans. The National Kidney Disease Education Program (NKDEP) does not endorse the use of the MDRD equation for patients that are not between the ages of 18 and 70, are , have extremes of body size, muscle mass, or nutritional status, or are non- or non-. According to the National Kidney Foundation, irrespective of diagnosis, the stage of the disease is based on the level of kidney function: Stage Description GFR(mL/min/1.73 m(2)) 1 Kidney damage with normal or decreased GFR 90 2 Kidney damage with mild decrease in GFR 60-89 3 Moderate decrease in GFR 30-59 4 Severe decrease in GFR 15-29 5 Kidney failure <15 (or dialysis) 40 Desirable <150 Borderline high 150-199 High 200-499 Very High >500 41 Desirable <200 Borderline high 200-239 High >239 42 Low <40 Desirable: 40-60 High: >60 43 Desirable: <100 mg/dL Near Optimal: 100-129 mg/dL Borderline High: 130-159 mg/dL High: 160-189 mg/dL Very High: >189 mg/dL 44 Because ethnic data is not always readily available, this report includes an eGFR for both -Americans and non- Americans. The National Kidney Disease Education Program (NKDEP) does not endorse the use of the MDRD equation for patients that are not between the ages of 18 and 70, are , have extremes of body size, muscle mass, or nutritional status, or are non- or non-. According to the National Kidney Foundation, irrespective of diagnosis, the stage of the disease is based on the level of kidney function: Stage Description GFR(mL/min/1.73 m(2)) 1 Kidney damage with normal or decreased GFR 90 2 Kidney damage with mild decrease in GFR 60-89 3 Moderate decrease in GFR 30-59 4 Severe decrease in GFR 15-29 5 Kidney failure <15 (or dialysis) 45 >100 to <200 pg/mL: likely compensated congestive heart failure (CHF) 200 to 400 pg/mL: likely moderate CHF >400 pg/mL: likely moderate to severe CHF 46 Because ethnic data is not always readily available, this report includes an eGFR for both -Americans and non- Americans. The National Kidney Disease Education Program (NKDEP) does not endorse the use of the MDRD equation for patients that are not between the ages of 18 and 70, are , have extremes of body size, muscle mass, or nutritional status, or are non- or non-. According to the National Kidney Foundation, irrespective of diagnosis, the stage of the disease is based on the level of kidney function: Stage Description GFR(mL/min/1.73 m(2)) 1 Kidney damage with normal or decreased GFR 90 2 Kidney damage with mild decrease in GFR 60-89 3 Moderate decrease in GFR 30-59 4 Severe decrease in GFR 15-29 5 Kidney failure <15 (or dialysis) 47 >100 to <200 pg/mL: likely compensated congestive heart failure (CHF) 200 to 400 pg/mL: likely moderate CHF >400 pg/mL: likely moderate to severe CHF 48 Because ethnic data is not always readily available, this report includes an eGFR for both -Americans and non- Americans. The National Kidney Disease Education Program (NKDEP) does not endorse the use of the MDRD equation for patients that are not between the ages of 18 and 70, are , have extremes of body size, muscle mass, or nutritional status, or are non- or non-. According to the National Kidney Foundation, irrespective of diagnosis, the stage of the disease is based on the level of kidney function: Stage Description GFR(mL/min/1.73 m(2)) 1 Kidney damage with normal or decreased GFR 90 2 Kidney damage with mild decrease in GFR 60-89 3 Moderate decrease in GFR 30-59 4 Severe decrease in GFR 15-29 5 Kidney failure <15 (or dialysis) 49 Serologic response to B. burgdorferi infection is not detected, but cannot rule out early infection during which low or undetectable antibody levels to B. burgdorferi may be present. If clinically indicated, a new serum specimen should be submitted in 7-14 days. Test Performed by: [place] [address] Oil Distributor: Ace Khalil M.D. 50 RESULT: No apparent monoclonal protein on serum electrophoresis. Test Performed by: [place] [address] Oil Distributor: Ace Khalil M.D. 51 Because ethnic data is not always readily available, this report includes an eGFR for both -Americans and non- Americans. The National Kidney Disease Education Program (NKDEP) does not endorse the use of the MDRD equation for patients that are not between the ages of 18 and 70, are , have extremes of body size, muscle mass, or nutritional status, or are non- or non-. According to the National Kidney Foundation, irrespective of diagnosis, the stage of the disease is based on the level of kidney function: Stage Description GFR(mL/min/1.73 m(2)) 1 Kidney damage with normal or decreased GFR 90 2 Kidney damage with mild decrease in GFR 60-89 3 Moderate decrease in GFR 30-59 4 Severe decrease in GFR 15-29 5 Kidney failure <15 (or dialysis) 52 Acute inflammation: >10.00 53 Because ethnic data is not always readily available, this report includes an eGFR for both -Americans and non- Americans. The National Kidney Disease Education Program (NKDEP) does not endorse the use of the MDRD equation for patients that are not between the ages of 18 and 70, are , have extremes of body size, muscle mass, or nutritional status, or are non- or non-. According to the National Kidney Foundation, irrespective of diagnosis, the stage of the disease is based on the level of kidney function: Stage Description GFR(mL/min/1.73 m(2)) 1 Kidney damage with normal or decreased GFR 90 2 Kidney damage with mild decrease in GFR 60-89 3 Moderate decrease in GFR 30-59 4 Severe decrease in GFR 15-29 5 Kidney failure <15 (or dialysis) 54 Because ethnic data is not always readily available, this report includes an eGFR for both -Americans and non- Americans. The National Kidney Disease Education Program (NKDEP) does not endorse the use of the MDRD equation for patients that are not between the ages of 18 and 70, are , have extremes of body size, muscle mass, or nutritional status, or are non- or non-. According to the National Kidney Foundation, irrespective of diagnosis, the stage of the disease is based on the level of kidney function: Stage Description GFR(mL/min/1.73 m(2)) 1 Kidney damage with normal or decreased GFR 90 2 Kidney damage with mild decrease in GFR 60-89 3 Moderate decrease in GFR 30-59 4 Severe decrease in GFR 15-29 5 Kidney failure <15 (or dialysis) 55 Anion gap measurement may be of limited value in the presence of any alkalosis, especially in a combined acid base disorder. . 56 Note change in reference range as of 04/02/08. The change was based on recommendations from the [place] [employer]. 57 Please note change in reference range effective 08 . 58 A metabolite of Naproxen, O-desmethylnaproxen, has been shown to interfere with the Jendrassik-Alexis method for measuring total bilirubin. Samples from patients who have taken Naproxen have shown spurious elevation in total bilirubin levels. 59 Because ethnic data is not always readily available, this report includes an eGFR for both -Americans and non- Americans. The National Kidney Disease Education Program (NKDEP) does not endorse the use of the MDRD equation for patients that are not between the ages of 18 and 70, are , have extremes of body size, muscle mass, or nutritional status, or are non- or non-. According to the National Kidney Foundation, irrespective of diagnosis, the stage of the disease is based on the level of kidney function: Stage Description GFR(mL/min/1.73 m(2)) 1 Kidney damage with normal or decreased GFR 90 2 Kidney damage with mild decrease in GFR 60-89 3 Moderate decrease in GFR 30-59 4 Severe decrease in GFR 15-29 5 Kidney failure <15 (or dialysis) 60 Interpretation: 10-24 (mild to moderate deficiency) -- REFERENCE VALUE -- 25-HYDROXY D TOTAL (D2+D3) Optimum levels in the normal population are 25-80 Test Performed by: [facility] [address] [place] [address] Oil Distributor: Rashaad Valiente III, M.D. 61 Test Performed by: [facility] [address] [place] [address] Oil Distributor: Rashaad Valiente III, M.D. 62 Test Performed by: [facility] [address] [place] [address] Oil Distributor: Rashaad Valiente III, M.D. 63 Interpretation: 10-24 (mild to moderate deficiency) -- REFERENCE VALUE -- 25-HYDROXY D TOTAL (D2+D3) Optimum levels in the normal population are 25-80 Test Performed by: [facility] [address] [place] [address] Oil Distributor: Rashaad Valiente III, M.D. Procedures Date Code Description Status 07/01/201813727 Inject/Drain Joint/Bursa Major W/O US Completed 06/05/201827852 Inject Tendon Sheath Or Ligament Aponeurosis Eg Completed Plantar Fascia 05/16/2018 81560 ECHO Transthoracic, Real-Time 2D With Doppler And Completed Color Flow 05/16/2018 44635 ECHO Transthoracic, Real-Time 2D With Doppler And Completed Color Flow 05/03/2018 15563 EKG Tracing & Interpretation Completed 11/05/2017 35996 Diffusing Capacity Completed 11/05/2017 33263 Spirometry Incl Graphic Record Completed 10/03/2017 08360 EKG Tracing & Interpretation Completed 07/25/2017 53691 Diffusing Capacity Completed 07/25/2017 88336 Plethysmography Determination Lung Volumes & Per Completed Airway Resist 07/25/2017 77598 Pulmonary Function><Bronchodil Completed 06/13/2017 45172 Inject/Drain Joint/Bursa Major W/O US Completed 03/30/2017 27798 Excision Tendon Sheath Ganglion /Or Joint Capsule Hand Completed Or Finger 03/30/2017 39041 Excision Tendon Sheath Ganglion /Or Joint Capsule Hand Completed Or Finger 03/12/2017 66505 EKG Tracing & Interpretation Completed 12/06/2016 65385 Inject/Drain Joint/Bursa Major W/O US Completed 07/27/2016 89170 Diffusing Capacity Completed 07/27/2016 05288 Plethysmography Determination Lung Volumes & Per Completed Airway Resist 07/27/2016 79366 Pulmonary Function><Bronchodil Completed 06/07/2016 17768 EKG Tracing & Interpretation Completed 05/24/2016 04834 Color Flow Doppler/Interp & Reprt Completed 05/24/2016 26367 Pulse Wave/Continuous-Interp.RPT Completed 05/24/2016 05230 Echocardiography, Transesophageal, Real Time W/Image Completed 2D W/W/O M-M 05/24/2016 03375 EKG, Interpretation Only Completed 05/24/2016 68614 Cardioversion Completed 10/15/2015 59319 EKG Tracing & Interpretation Completed 09/06/2015 25365 EKG Tracing & Interpretation Completed 08/03/2015 11743 Diffusing Capacity Completed 08/03/2015 00252 Pulmonary Function><Bronchodil Completed 05/28/2015 [id number] Mammogram Completed 04/13/2015 52661 Treadmill Interp/Report Only Completed 04/13/2015 24547 Stress Test Supervsn W/Out I/R Completed 03/25/2015 04749 ECHO Transthorasic Realtime 2D W Doppler & Color Flow Completed Hosp 02/10/2015 73171 ECHO Transthorasic Realtime 2D W Doppler & Color Flow Completed Hosp 01/28/2015 40102 EKG Tracing & Interpretation Completed 12/13/2014 23417 ECHO Transthorasic Realtime 2D W Doppler & Color Flow Completed Hosp 12/13/2014 12687 EKG, Interpretation Only Completed 12/12/2014 38876 EKG, Interpretation Only Completed 12/11/2014 61405 EKG, Interpretation Only Completed 12/09/2014 50349 Left Heart Cath. Incl S/I Coronaries, Angio S/I V Gram Completed If Done 12/09/2014 26840 ECHO Transthorasic Realtime 2D W Doppler & Color Flow Completed Hosp 12/08/2014 98835 EKG Tracing & Interpretation Completed 10/09/2014 73217 EKG Tracing & Interpretation Completed 06/05/2014 01726 Nerve Conduction 03-04 Studies Completed 06/05/2014 85409 Needle Electromyography Complete, Five Or More Muscles Completed Studied 09/18/2013 26871 EKG Tracing & Interpretation Completed 11/12/2012 59199 Holter Monitor Review (24 hr)dr review & interp only Completed 11/04/2012 15771 EKG Tracing & Interpretation Completed 09/19/2011 30699 EKG Tracing & Interpretation Completed 09/16/2010 54922 EKG Tracing & Interpretation Completed 05/20/2010 07752 ECHO Transthoracic, Real-Time 2D With Doppler And Completed Color Flow 09/06/2009 27360 Stress ECHO Interpretation/Report Hospital Completed 09/06/2009 92799 Treadmill Interp/Report Only Completed 09/06/2009 19681 Stress Test Supervsn W/Out I/R Completed 08/18/2009 69159 Holter Monitor Completed 07/28/2009 92055 Mobile Cardiovascular Telemetry Over 24 HR Up To 30 Completed Days 07/06/2009 77351 Mobile Cardiovascular Telemetry Over 24 HR Up To 30 Completed Days 07/01/2009 35970 EKG Tracing & Interpretation Completed 04/12/2009 72014 EKG Tracing & Interpretation Completed 03/17/2009 38511 ECHO Transthorasic Realtime 2D W Doppler & Color Flow Completed Hosp 03/17/2009 49979 EKG, Interpretation Only Completed 09/21/2008 [id number] Bone Mineral Density Test Completed Encounters Type Date Location Provider Dx Diagnosis Office Visit 06/05/2018 [facility] Naresh Conway, M75.22 Bicipital 2:00p Of [place] tendinitis, left shoulder M75.42 Impingement syndrome of left shoulder Office Visit 05/03/2018 Ronit Cruz I48.91 Unspecified atrial 4:00p Cardiology Van [place] fibrillation E78.5 Hyperlipidemia, unspecified I10 Essential (primary) hypertension 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 I42.9 Cardiomyopathy, unspecified Office Visit 10/03/2017 1:40p [facility] Clint Fernández, I48.0 Paroxysmal atrial Of Wardrobe Technician AT [facility] M.Faith, FACC, fibrillation FSCAI I47.9 Paroxysmal tachycardia, unspecified 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 Office Visit 02/26/2017 Surgical Greg Arce, M20.002 Unspecified 10:45a [facility] , FACS deformity of left finger(s) Office Visit 2017 Orthopedic Naresh Conway, M17.12 Unilateral 10:30a Services Of Van primary C.M.A. osteoarthritis, left knee Office Visit 12/06/2016 Jordan Washington M17.12 Unilateral 10:30a Services Of JAMAL Terry primary C.M.A. osteoarthritis, left knee Office Visit 11/30/2016 [facility] Dermatology Joce Bryan, L74.519 Primary focal 2:00p hyperhidrosis, unspecified Office Visit 09/13/2016 Orthopedic Naresh Conway, M17.11 Unilateral 1:30p Services Of Van primary C.M.A. 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 fibrillation Hospitalists I42.9 Cardiomyopathy, unspecified G89.4 Chronic pain syndrome I47.1 Supraventricular [facility] 1:04p william Soriano, NATURAL DEVELOPER atrial Hospitalists fibrillation I42.9 Cardiomyopathy, unspecified G89.4 Chronic pain syndrome I47.1 Supraventricular tachycardia Office Visit 05/23/2016 2:04p [facility] Clint Fernández, I48.91 Unspecified atrial Of Wardrobe Technician AT [facility], FACC, fibrillation FSCAI Office Visit 04/19/2016 1:40p [facility] Clint Fernández I47.9 Paroxysmal Of Wardrobe Technician AT [facility], FACC, tachycardia, FSCAI unspecified 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 Office Visit 02/09/2016 3:20p [facility] Clint Fernández, I47.9 Paroxysmal Of Wardrobe Technician AT [facility], FACC, tachycardia, FSCAI unspecified I42.9 Cardiomyopathy, unspecified I25.9 Chronic ischemic heart disease, unspecified Office Visit 10/15/2015 3:40p [facility] Clint Fernández, I47.9 Paroxysmal Of Wardrobe Technician AT [facility], FACC, tachycardia, FSCAI unspecified I42.9 Cardiomyopathy, unspecified I25.9 Chronic ischemic heart disease, unspecified Office Visit 09/06/2015 1:00p [facility] Clint Fernández, I47.9 Paroxysmal Of Wardrobe Technician AT [facility], FACC, tachycardia, FSCAI unspecified I42.9 Cardiomyopathy, unspecified I25.9 Chronic ischemic heart disease, unspecified Office Visit 04/20/2015 3:20p [facility] Clint Fernández, 414.9 Ischemic Heart Of Wardrobe Technician AT [facility], FACC, Disease Chronic FSCAI Unspec 786.05 Shortness Of Breath 425.4 Cardiomyopathy Other Prim 427.2 Paroxysmal Tachycardia Unspec Office Visit 03/29/2015 3:20p Lenard Fernández, 425.4 Cardiomyopathy Other Cardiology Of GRAHAM AraujoC, Prim [facility] 414.9 Ischemic Heart Disease Chronic Unspec 424.0 Mitral Valve Disorder 427.2 Paroxysmal Tachycardia Unspec 272.4 Hyperlipidemia Other Unspec Office Visit 03/03/2015 10:45a Pulmonology And Fazal SK. 780.50 Sleep Disturbance Sleep Services Of [place] Unspec Wardrobe Technician Office Visit 02/25/2015 3:30p Pulmonology And Faz[place]. 799.02 Hypoxemia Sleep Services Of [place] Wardrobe Technician 780.50 Sleep Disturbance Unspec Office Visit 02/22/2015 2:00p Lenard Fernández, 425.4 Cardiomyopathy Other Cardiology Of Van [facility], Prim [facility]robe [facility] 414.9 Ischemic Heart Disease Chronic Unspec Office Visit 01/28/2015 11:00a Lenard Fernández, 425.4 Cardiomyopathy Other Cardiology Of GRAHAM AraujoC, Prim [facility]robe [facility]ician [facility] 414.9 Ischemic Heart Disease Chronic Unspec 785.0 Tachycardia Unspec Office Visit 12/13/2014 4:02p Lenard Fernández 425.4 Cardiomyopathy Other Cardiology Of GRAHAM AraujoC, Prim [facility]robe Technician [facility] 414.9 Ischemic Heart Disease Chronic Unspec 427.31 Atrial Fibrillation 458.9 Hypotension Unspec Office Visit 12/13/2014 7:31a [facility] Jer 785.0 Tachycardia Asswilliam carl M.D. Unspec Hospitalists 428.20 Systolic Heart Failure Unspecified 458.9 Hypotension Unspec 275.2 Metabolic Disorder Magnesium Office Visit 12/12/2014 7:31a [facility] Jer 785.0 Tachycardia william Soriano M.D. Unspec Hospitalists 428.20 Systolic Heart Failure Unspecified 458.9 Hypotension Unspec 275.2 Metabolic Disorder Magnesium Office Visit 12/12/2014 4:01p [facility] Issa Fernández, 414.9 Ischemic Heart Of Wardrobe Technician AT [facility] Van, [facility], Disease Chronic [facility] Unspec 425.4 Cardiomyopathy Other Prim Office Visit 12/11/2014 4:00p Lenard Fernández 425.4 Cardiomyopathy [facility] 414.9 Ischemic Heart Disease Chronic Unspec Office Visit 12/11/2014 [facility] Yanci Frey, 785.0 Tachycardia 7:31a Assoc,pc M.D. Unspec Hospitalists 428.20 Systolic Heart Failure Unspecified 458.9 Hypotension Unspec 275.2 Metabolic Disorder Magnesium Office Visit 12/10/2014 3:59p [facility] Clint Fernández, 425.4 Cardiomyopathy Other Cardiology Of Van, FACAilyn, Prim Wardrobe Technician AT [facility] FSCAI 414.9 Ischemic Heart Disease Chronic Unspec Office Visit 12/10/2014 [facility] Yanci Hohn, 785.0 Tachycardia 7:30a william Soriano M.D. Unspec Hospitalists 428.20 Systolic Heart Failure Unspecified 458.9 Hypotension Unspec 275.2 Metabolic Disorder Magnesium Office Visit 12/09/2014 3:58p [facility] Clint Fernández, 785.0 Tachycardia Unspec Of [facility] AT [facility] Van, [facility], [facility] 786.05 Shortness Of Breath 786.02 Orthopnea 794.31 Electrocardiogram (ECG) (EKG) Abnormal Office Visit 12/09/2014 [facility] Yanci Frey, 785.0 Tachycardia 7:30a william Soriano M.D. Unspec Hospitalists 786.05 Shortness Of Breath 275.2 Metabolic Disorder Magnesium 428.0 Congestive Heart Failure Unspecified Office Visit 12/08/2014 [facility] Yanci Frey, 785.0 Tachycardia 7:29a william Soriano M.D. Unspec Hospitalists 786.05 Shortness Of Breath 794.31 Electrocardiogram (ECG) (EKG) Abnormal 275.2 Metabolic Disorder Magnesium Office Visit 12/08/2014 2:00p [facility] Zara Vega, 785.0 Tachycardia Unspec PA 794.31 Electrocardiogram (ECG) (EKG) Abnormal 424.0 Mitral Valve Disorder 786.05 Shortness Of Breath Office 10/09/2014 [place] Qutaybeh S. 794.31 Electrocardiogram Visit 2:40p Cardiology [place] Parra (ECG) (EKG) Abnormal 785.0 Tachycardia Unspec Office Visit 08/19/2014 4:00p [place] [facility] Derick Cruz 723.1 Cervicalgia Services Of Mike Frye M.D. Office Visit 07/21/2014 2:00p [place] Joselito Cruz 356.8 Neuropathy Other Services Of Mike Frye M.D. Spec Idiopathic Peripheral Office Visit 06/23/2014 4:00p Rheumatology James Amin, 729.1 Myalgia & Services Of Mike Araujo Myositis Unspec 715.16 Osteoarthrosis Localized Prim Lower Leg 353.0 Lesions Brachial Plexus Office 06/09/2014 Rheumatology James Amin, 715.16 Osteoarthrosis Visit 2:00p Services Of Mike Araujo Localized Prim Lower Leg Office 05/11/2014 Neurosurgery Luis Villalta 353.0 Lesions Brachial Visit 2:40p Services Of Mike Cruz M.D. Plexus Office 04/29/2014 Neurosurgery Luis Villalta 353.0 Lesions Brachial Visit 9:40a Services Of Mike Cruz M.D. Plexus Office 09/18/2013 [facility] Quandrewybeh S. 794.31 Electrocardiogram Visit 2:20p Fidel (ECG) (EKG) Abnormal Van 424.0 Mitral Valve Disorder 427.69 Premature Beats Other 427.61 Premature Beats Supraventricular 427.31 Atrial Fibrillation Office Visit 11/04/2012 [place] Quandrewybeh S. 427.31 Atrial 3:00p Issa Parra M.D. Fibrillation 794.31 Electrocardiogram (ECG) (EKG) Abnormal 785.0 Tachycardia Unspec Office 09/19/2011 [place] Qutaybeh S. 794.31 Electrocardiogram Visit 9:40a Issa Parra M.D. (ECG) (EKG) Abnormal 424.0 Mitral Valve Disorder 427.31 Atrial Fibrillation Office Visit 09/16/2010 3:00p Ronit Anton S. 424.0 Mitral Valve [place] Parra Disorder 794.31 Electrocardiogram (ECG) (EKG) Abnormal 786.05 Shortness Of Breath Office Visit 10/06/2009 [place] Qutaybeh S. 427.31 Atrial 11:00a Issa Parra M.D. Fibrillation 424.0 Mitral Valve Disorder Office Visit 09/06/2009 [place] Quandrewybeh S. 427.31 Atrial 9:00a Issa Parra M.D. Fibrillation 794.31 Electrocardiogram (ECG) (EKG) Abnormal 424.0 Mitral Valve Disorder Office Visit 07/01/2009 Ronit Qualeksander S. 427.31 Atrial 2:40p Issa Parra M.D. Fibrillation 424.0 Mitral Valve Disorder Office Visit 04/12/2009 11:20a DO Not Use Wardrobe Technician Thananart, 577.0 Pancreatitis Acute AT Warren Kenney M.D. 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 575.10 Cholecystitis Unspec Office Visit 03/21/2009 2:15a [facility] Jer 577.0 Pancreatitis Acute Assoc,william Ugarte M.D. Hospitalists 427.31 Atrial Fibrillation Office Visit 03/20/2009 [facility] Jer 577.0 Pancreatitis Acute 3:15a ,william Ugarte M.D. Hospitalists Office Visit 03/19/2009 [facility] Jer 577.0 Pancreatitis Acute 2:15a william Soriano M.D. Hospitalists Office Visit 03/18/2009 [facility] Ahmadur 577.0 Pancreatitis Acute 2:00a william Soriano M.D. Hospitalists Office Visit 03/17/2009 [facility] Ahmadur 789.00 Pain Abdominal 12:15a william Soriano M.D. Unspec Site Hospitalists 427.31 Atrial Fibrillation Office Visit 10/12/2008 2:00p DO Not Use Wardrobe Technician Thananart, 296.30 Depressive AT Warren Kenney M.D. Disorder Major Recurrent Unspec Office Visit 09/10/2008 2:40p DO Not Use Wardrobe Technician Thananart, 296.30 Depressive AT Warren Kenney M.D. Disorder Major Recurrent Unspec Office Visit 06/22/2008 11:30a DO Not Use Wardrobe Technician Zebrt, 724.2 Lumbago AT Warren Kenney M.D. 268.9 Vitamin D Deficiency Unspec Office Visit 04/16/2008 11:30a DO Not Use Wardrobe Technician AT [facility] Anne Marie, 724.2 Sivapushpa Kelley M.D. 268.9 Vitamin D Deficiency Unspec Plan of Treatment Future Appointment(s):08/12/2018 10:30 am - Ronald Means MD at [facility].07/01/2018 - Ronald Means, MDM75.22 Bicipital tendinitis, left shoulderFollow up:Follow up: in 6 weeks with me or Dr. Flores75.42 Impingement syndrome of left ngrpqsykA61.52 Bursitis of left shoulder
[2018-07-17] MEDS: Morphine VIAL* 4 MG/ML VIAL (1 ml vial) IV PRN ×2 (18:40→20:25)
[2018-07-17 18:50] LABS: ABS Basophils 0 10^3/ul (0-0.2); ABS Eosinophils 0 10^3/ul (0-0.6); ABS Monocytes 1.2 10^3/ul (0-0.8); ABS Neutrophils 18.3 10^3/ul (1.5-7.7); ABS Nucleated RBC 0 10^3/ul; Eosinophil % 0.1 %; Hematocrit 46 % (35-47); Hemoglobin 14.8 g/dl (12.0-16.0); Mean Corpuscular HGB Conc 33 g/dl (31-36); Mean Corpuscular Hemoglobin 29 pg (27-31); Mean Corpuscular Volume 88 fL (80-97); Mean Platelet Volume 7.8 fL (7.4-10.4); Nucleated Red Blood Cells % 0; Platelet Count 271 10^3/ul (150-450); Red Blood Count 5.18 10^6/ul (4.00-5.40); Red Cell Distribution Width 14 % (10.5-15); White Blood Count 20.6 10^3/ul (3.5-10.8)
[2018-07-17] MEDS ORDERED: Iodixanol* (CONTRAST) 320 MG/ML 100 ML SDV IV ONE (19:02)
--- NOTE | 2018-07-17 19:24 | ED ---
GI/ HPI - HPI Summary HPI Summary: A 73 y/o female brought in by ambulance presents to the ED c/o rectal pain reaching 10/10 in severity. Currently, the patient is in obvious pain distress and would like pain medications and relief. Patient is consistently moaning from the pain during examination. In the ED room, the patient has a pulse of 87 BPM, O2 saturation of 92%, and blood pressure of 115/73. As per triage, " Patient has been constipated for several days, unable to pass BM. Patient took 3 fleets enemas with no results. Pain now excrutiating". According to the patient, she has been experiencing rectal pain and constipation for the past couple days. She noted that she feels something needs to pass, but cannot. She stated, "it hurts so much...help me please". She denies any fevers or abdominal pain. She noted that she is otherwise healthy. PMHx of tachycardia and A-fib, no COPD. SHx of non-smoker, no ETOH. Patient is currently on Xaralto. No known allergies. - History of Current Complaint Chief Complaint: EDRectalPain Time Seen by Provider: 07/17/18 17:55 Stated Complaint: CONSTIPATION Hx Obtained From: Patient Hx Last Menstrual Period: NA Onset/Duration: Started Days Ago, Still Present, Worse Since Timing: Constant Severity: Severe Current Severity: Severe Pain Intensity: 10 Location of Pain: Rectal Pain Characteristics: Pressure Associated Signs and Symptoms: Positive: Rectal Pain. Negative: Fever, Abdominal Pain Aggravating Factor(s): Nothing Alleviating Factor(s): Nothing - Additional Pertinent History Primary Care Physician: [id number] - Allergy/Home Medications Allergies/Adverse Reactions: Allergies Allergy/AdvReac Type Severity Reaction Status Date / Time No Known Allergies Allergy Verified 08/02/17 13:39 Home Medications: Home Medications Desvenlafaxine (NF) [Pristiq (NF)] 50 mg PO DAILY 07/17/18 [History Confirmed ] Magnesium Oxide [Magnesium] 500 mg PO BID 07/17/18 [History Confirmed 07/17/18] PMH/Surg Hx/FS Hx/Imm Hx Endocrine/Hematology History: Denies: Hx Diabetes, Hx Thyroid Disease Cardiovascular History: Reports: Hx Angina, Hx Congestive Heart Failure, Hx Coronary Artery Disease, Hx Hypercholesterolemia, Other Cardiovascular Problems/ Disorders - a fib postop, superventricular premature beats, TACHYCARDIA Denies: Hx Hypertension, Hx Pacemaker/ICD Respiratory History: Reports: Other Respiratory Problems/Disorders - GASP FOR BREATH AT TIMES PRIOR TO CARDIAC MEDICATION- 1+YEARS AGO Denies: Hx Asthma, Hx Chronic Obstructive Pulmonary Disease (COPD) GI History: Reports: Other GI Disorders - jejunoileal bypass Denies: Hx Gastroesophageal Reflux Disease, Hx Ulcer History: Reports: Hx Kidney Stones Denies: Hx Renal Disease Musculoskeletal History: Reports: Hx Arthritis, Other Musculoskeletal History - Chronic Neck Pain Sensory History: Reports: Hx Cataracts, Hx Contacts or Glasses Denies: Hx Hearing Aid Opthamlomology History: Reports: Hx Cataracts, Hx Contacts or Glasses Psychiatric History: Reports: Hx Anxiety, Hx Depression Denies: Hx Panic Disorder - Cancer History Hx Chemotherapy: No Hx Radiation Therapy: No - Surgical History Surgery Procedure, Year, and Place: Jujunum/illium bypass 1976,,,. TUMMY TUCK - COSMETIC, HEMATOMA REMOVED FROM UNDER CHIN. TONSILECTOMY Hx Anesthesia Reactions: No Infectious Disease History: No Infectious Disease History: Denies: Hx Hepatitis, Hx Human Immunodeficiency Virus (HIV), Traveled Outside the [place] in Last 30 Days - Family History Known Family History: Positive: Cardiac Disease, Hypertension, Diabetes - Social History Alcohol Use: None Substance Use Type: Reports: None Smoking Status (MU): Never Smoked Tobacco Review of Systems Negative: Fever Positive: Other - POSITIVE: RECTAL PAIN. Negative: Abdominal Pain All Other Systems Reviewed And Are Negative: Yes Physical Exam - Summary Physical Exam Summary: Appearance: Female lying in bed who appears to be in quite a bit of pain distress. Does not appear toxic. Afebrile. Skin: Warm, dry, no obvious rash Eyes: sclera anicteric, no conjunctival pallor ENT: mucous membranes moist, pharynx appears normal Neck: Supple, nontender Respiratory: Clear to auscultation, no signs of respiratory distress Cardiovascular: Normal S1, S2. No murmurs. Normal distal pulses in tibial and radial bilaterally. Abdomen: Soft, nontender, normal active bowel sounds present Musculoskeletal: Normal, Strength/ROM Intact Neurological: A&Ox3, awake and alert, mentation is normal, speech is fluent and appropriate Psychiatric: affect is normal, does not appear anxious or depressed Rectal Exam: Obvious indurated pararectal abscess on the right, no marked tenderness, no drainage. Triage Information Reviewed: Yes Vital Signs On Initial Exam: Initial Vitals Temp Pulse Resp BP Pulse Ox 98.1 F 94 16 115/73 94 07/17/18 17:48 07/17/18 17:48 07/17/18 17:48 07/17/18 17:48 07/17/18 17:48 Vital Signs Reviewed: Yes Diagnostics - Vital Signs Vital Signs Temp Pulse Resp BP Pulse Ox 07/17/18 18:40 16 07/17/18 18:12 14 07/17/18 17:48 98.1 F 94 16 115/73 94 - Laboratory Lab Results: Lab Results 07/17/18 07/17/18 07/17/18 Range/Units 18:22 18:22 18:22 WBC 20.6 H (3.5-10.8) 10^3/ul RBC 5.18 (4.00-5.40) 10^6/ul Hgb 14.8 (12.0-16.0) g/dl Hct 46 (35-47) % MCV 88 (80-97) fL MCH 29 (27-31) pg MCHC 33 (31-36) g/dl RDW 14 (10.5-15) % Plt Count 271 (150-450) 10^3/ul MPV 7.8 (7.4-10.4) fL Neut % (Auto) 88.8 % Lymph % (Auto) 5.0 % [place] % (Auto) 6.0 % Eos % (Auto) 0.1 % Baso % (Auto) 0.1 % Absolute Neuts (auto) 18.3 H (1.5-7.7) 10^3/ul Absolute Lymphs (auto) 1.0 (1.0-4.8) 10^3/ul Absolute Monos (auto) 1.2 H (0-0.8) 10^3/ul Absolute Eos (auto) 0 (0-0.6) 10^3/ul Absolute Basos (auto) 0 (0-0.2) 10^3/ul Absolute Nucleated RBC 0 10^3/ul Nucleated RBC % 0 Sodium 137 (135-145) mmol/L Potassium 4.2 (3.5-5.0) mmol/L Chloride 102 (101-111) mmol/L Carbon Dioxide 26 (22-32) mmol/L Anion Gap 9 (2-11) mmol/L BUN 20 (6-24) mg/dL Creatinine 1.31 H (0.51-0.95) mg/dL Est GFR ( Amer) 48.4 (>60) Est GFR (Non-Af Amer) 40.0 (>60) BUN/Creatinine Ratio 15.3 (8-20) Glucose 191 H (70-100) mg/dL Lactic Acid 2.7 H* (0.5-2.0) mmol/L Calcium 7.9 L (8.6-10.3) mg/dL Total Bilirubin 0.50 (0.2-1.0) mg/dL AST 20 (13-39) U/L ALT 23 (7-52) U/L Alkaline Phosphatase 86 (34-104) U/L Total Protein 6.2 L (6.4-8.9) g/dL Albumin 3.7 (3.2-5.2) g/dL Globulin 2.5 (2-4) g/dL Albumin/Globulin Ratio 1.5 (1-3) Result Diagrams: 07/19/18 06:57 07/19/18 06:57 Lab Statement: Any lab studies that have been ordered have been reviewed, and results considered in the medical decision making process. - CT CT A/P CT Interpretation Completed By: Radiologist - 1. Sigmoid colon and rectum fecal impaction with wall thickening, adjacent fat stranding, and presacral edema compatible with stercoral colitis. No pneumatosis or portal venous air. No definite preforation or abscess. 2. Hiatal hernia. 3. Post cholecystectomy. 4. Other non-emergent findings as above. ED PHYSICIAN REVIEWED THIS RADIOLOGY REPORT. - EKG 1852 Cardiac Rate: NL - 83 BPM EKG Rhythm: Sinus Rhythm Summary of EKG Findings: Q-waves in superior leads. Re-Evaluation - Re-Evaluation First Eval Re-Evaluation Time: 18:32 Change: Unchanged Comment: Dr. Grant visited patient in ED. GIGU Course/Dx - Course Course Of Treatment: A 73 y/o female brought in by ambulance presents to the ED c/o rectal pain reaching 10/10 in severity. Currently, the patient is in obvious pain distress and would like pain medications and relief. Patient is consistently moaning from the pain during examination. In the ED room, the patient has a pulse of 87 BPM, O2 saturation of 92%, and blood pressure of 115/ 73. As per triage, "Patient has been constipated for several days, unable to pass BM. Patient took 3 fleets enemas with no results. Pain now excrutiating". According to the patient, she has been experiencing rectal pain and constipation for the past couple days. She noted that she feels something needs to pass, but cannot. She stated, "it hurts so much...help me please". She denies any fevers or abdominal pain. She noted that she is otherwise healthy. Physical examination revealed female lying in bed who appears to be in quite a bit of pain distress. Does not appear toxic. Afebrile. Rectal Exam: Obvious indurated pararectal abscess on the right, no marked tenderness, no drainage. A CT A/P revealed 1. Sigmoid colon and rectum fecal impaction with wall thickening , adjacent fat stranding, and presacral edema compatible with stercoral colitis. No pneumatosis or portal venous air. No definite preforation or abscess. 2. Hiatal hernia. 3. Post cholecystectomy. 4. Other non-emergent findings as above. An EKG revealed NSR at 83 BPM, Q-waves in superior leads. Hematology was done. Labs significant for high WBC (20.6), high Creatinine (1.31 ), high Glucose (191), high lactic acid (2.7), and low Calcium (7.9). In the ED course, the patient received Morphine, Visipaque, Piperacillin, and IV fluids. Patient care was discussed with general surgeron, Dr. Grant, who consulted with patient in ED. After consultation, Dr. Grant accepts patient for admission and will try to get patient in OR later this evening around 2200 2300. Recommended to start patient on IV antibiotics. Radiology called and stated patient has stercoral colitis. Patient will be admitted with a diagnosis of fecal impaction and colitis. Patient is agreeable with this plan. This patient has stercoral colitis and was unable to tolerate manual disimpaction. She was sedated with propofol with the assistance of Dr. Haro, and manual disimpaction was carried out. She will require admission for further bowel disimpaction with enemas to treat her quite severe stercoral colitis. She does not require any surgical intervention at present. - Diagnoses Provider Diagnoses: Fecal impaction, Colitis - Physician Notifications Discussed Care Of Patient With: Alejandra Grant Time Discussed With Above Provider: 18:06 Instructed by Provider To: Other - Will see patient in ED. 1831 - will try to get patient in OR later this evening around 2200 - 2300. Start patient on IV antibiotics. Accepts patient for admission. 2005 - Radiology stated patient has stercoral colitis. Discharge - Sign-Out/Discharge Documenting (check all that apply): Patient Departure - ADMIT, Sign-Out Patient - RUPESH Signing out patient TO: Alejandra Grant Receiving patient FROM: Guido Srinivasan - Discharge Plan Condition: Stable Disposition: ADMITTED TO [facility] - Billing Disposition and Condition Condition: STABLE Disposition: Admitted to [facility] - Attestation Statements Document Initiated by Kar: Yes Documenting Scribe: Bear Catherine Provider For Whom Kar is Documenting (Include Credential): Guido Srinivasan MD Scribe Attestation: Bear Farias, lauraibed for Guido Srinivasan MD on 07/21/18 at 1233. Scribe Documentation Reviewed: Yes Provider Attestation: The documentation as recorded by the Bear silverman accurately reflects the service I personally performed and the decisions made by me, Guido Srinivasan MD Status of Scribe Document: Viewed
[2018-07-17] MEDS ORDERED: NS 0.9% 1000 ML* 2,000 ML IV ONE (19:25)
[2018-07-17] MEDS ORDERED: Piperacillin/Tazobac ADVAN(*) 3.375 GM in NS 0.9% 100 ML* 100 ML IVPB ONE (19:25)
[2018-07-17] MEDS ORDERED: Propofol* 10 MG/ML 20 ML BTL IV PUSH ONE (21:00)
[2018-07-17] MEDS ORDERED: Propofol* 500 MG/50 ML BTL ONE (21:00)
[2018-07-17] MEDS ORDERED: Al Hydrox/Mg Hydrox/Simet LIQ* 30 ML UDC PO PRN (21:35)
[2018-07-17] MEDS ORDERED: Ondansetron INJ* 2 MG/ML VIAL IV PRN (21:35)
[2018-07-17] MEDS ORDERED: Acetaminophen TAB* 325 MG PO PRN (21:35)
[2018-07-17] MEDS ORDERED: Mineral Oil ENEMA* 1 BOTTLE PR ONE (21:42)
[2018-07-17] MEDS ORDERED: oxyCODONE TAB* 5 MG TAB PO PRN (21:52)
[2018-07-17] MEDS ORDERED: HYDROmorphone TAB* 4 MG PO PRN (21:52)
[2018-07-17] MEDS ORDERED: Zosyn per Pharmacy* NOTE FOLLOW UP SCH (22:00)
[2018-07-17] MEDS: Polyethylene Glycol 3350* 17 GM PACKET PO SCH (23:04)
[2018-07-17] MEDS: NS 0.9% 1000 ML* 1,000 ML IV SCH (23:16)
[2018-07-18] MEDS: ZOSYN 3.375 GM Q8H per EXTENDED INFUSION IVPB SCH ×6 (01:14→16:38)
--- NOTE | 2018-07-18 03:05 | HP ---
HISTORY AND PHYSICAL CONSULTATION: DATE OF ADMISSION: 07/17/18 SERVICE: General Surgery. ATTENDING SURGEON: Alejandra Grant MD ADMISSION DIAGNOSIS: Perianal pain and constipation HISTORY OF PRESENT ILLNESS: Ms. Waite is a 73-year-old female with a history of atrial fibrillation, who presented to the emergency room this evening with complaints of having 4 days of severe constipation. She says that beginning this afternoon she developed severe perirectal pain and now she is fairly incontinent of her stool and has constant pain at rest. Prior to this she did have any pain. The patient denies having any fevers at home. She has no nausea or vomiting. She is tolerating a regular diet. She denies having any blood in her stools. She normally has regular stools every day that are well formed. She last had a colonoscopy, she says, within the past 5 years and she reports that it was normal. She does report that her mother had colon cancer that was treated with radiation therapy and she survived. PAST MEDICAL HISTORY: Atrial fibrillation and tachycardia. PAST SURGICAL HISTORY: Intestinal bypass surgery for weight loss. MEDICATIONS: 1. Xarelto 10 mg p.o. daily. 2. Omeprazole 40 mg p.o. daily. 3. Metoprolol XL tab 100 mg p.o. daily. 4. Lisinopril 10 mg p.o. daily. 5. Cymbalta 30 mg p.o. daily. 6. Atorvastatin 40 mg p.o. daily. 7. Aspirin 81 mg p.o. daily. 8. Amiodarone 200 mg p.o. daily. 9. Pristiq 50 mg p.o. daily. 10. Magnesium oxide 500 mg p.o. b.i.d. 11. Nitroglycerin tabs as needed. 12. Vitamin D tabs daily. 13. Oxycodone as needed. ALLERGIES: No known drug allergies. FAMILY HISTORY: Mother with a history of colon cancer. SOCIAL HISTORY: The patient is a nonsmoker. She lives at home with her and nephew. She is retired. REVIEW OF SYSTEMS: Negative except for as noted in history of present illness. PHYSICAL EXAMINATION GENERAL: An older woman, lying comfortably in bed, in some distress. VITAL SIGNS: Temperature is 98.1, pulse 94, respiratory rate 16, O2 sat is 94% on room air, blood pressure 115/73. RESPIRATORY: No increased work of breathing. RECTAL EXAM: The patient has incontinence of liquid stool during the examination. In the left anterior aspect of the perirectal area, there is tenderness to palpation. The tenderness decreases partially, but she still complains of tenderness in the gluteus extending towards the left perineum. There is extensive induration and erythema, also tender. On digital rectal exam , there is significant tenderness and stool is palpable in the rectal vault. There is no gross blood on examination and there is some mild fluctuance in the left lateral wall of the rectum. DIAGNOSTIC STUDIES/LAB DATA: White blood cell count is 20.6, hemoglobin is 14.8 , hematocrit is 46, platelets 271. Sodium is 137, potassium is 4.2, chloride is 102, CO2 is 26, anion gap is 9, BUN is 20, creatinine is 1.3, glucose is 191 , lactic acid is 2.7, calcium is 7.9. Imaging: Pending. ASSESSMENT AND PLAN: Ms. Waite is a 73-year-old female with a history of atrial fibrillation, currently on Xarelto, who presents with perianal pain concerning for an abscess. However, given her history of significant constipation prior to experiencing pain (unusual for a perirectal abscess presentation), and also given the extensive induration of her perineum, I have requested the emergency room to order a CT scan of the pelvis to better assess where the abscess cavity may be tracking or if there is any other rectal abnormality causing the constipation. Furthermore given the fact that she is on Xarelto, preoperative imaging is preferable to direct incision and drainage should it be required. I have discussed with the patient the risks, benefits, alternatives of incision and drainage of perirectal abscess, which include significantly in her case bleeding, persistent infection, need for re-operation , risk of an injury to the anal sphincters and resulting in a permanent anal incontinence. We will follow up with CT scan and proceed accordingly. The patient is in agreement with this plan. I spent a total of 60 minutes in the management and care of this patient, approximately 30 min in examination and discussion with the patient the plan of care. [id number]/[facility] #: [id number] MTDD
--- NOTE | 2018-07-18 05:46 | HP ---
CC: Manoj Swain MD * HISTORY AND PHYSICAL: DATE OF ADMISSION: 07/17/18 TIME OF EVALUATION: 2100. PRIMARY CARE PHYSICIAN: Manoj Swain MD. CHIEF COMPLAINT: Constipation. HISTORY OF PRESENT ILLNESS: This is a 73-year-old female with past medical history of arthritis and chronic pain, on Movantik who presented to the emergency room after not having bowel movement for 4 to 5 days. She states normally she has a bowel movement daily. She takes her opioids every other day. When she takes her opioids, she will take the Movantik with it as needed. She has not had any issues with constipation but after 4 or 5 days of no bowel movement she tried to take 3 Fleet Enemas today with no relief. She is passing gas. She has small specks of stool but it is very uncomfortable. She denied any recent illness. No fevers. No nausea or vomiting. No abdominal pain. No urinary symptoms. She did have a colonoscopy 4 to [address] Hernandez that was unremarkable. In the emergency room, the patient had labs. On a rectal exam, she was very tender in her rectum and there was concern for a perirectal abscess with the setting of an elevated white count. Dr. Grant from Surgery was contacted initially, they were going to take her to the OR for drainage. CAT scan was ordered prior to that which showed fecal impaction with stercoral colitis. The patient was then attempted to be manually disimpacted in the emergency room, some pasty brown stool did come out. On my exam, the patient still was in a lot of significant rectal pain. She denies any change in her weight. No medications change. No chest pain or shortness of breath. Otherwise, review of systems is negative. In the emergency room, the patient received 2 L of fluid, Zosyn, 30 mg total of morphine. PAST MEDICAL HISTORY: 1. History of paroxysmal atrial fibrillation, on anticoagulation. 2. GERD. 3. Depression. 4. Hyperlipidemia. 5. History of brachial plexus . 6. Anxiety. 7. Depression. 8. History of vitamin B12 deficiency. 9. History of gastric bypass. 10. Arthritis with chronic pain. 11. History of cholecystectomy and appendectomy. 12. History of pancreatitis. 13. Bilateral knee pain and arthritis. MEDICATIONS: 1. Pristiq 50 mg p.o. daily. 2. Magnesium oxide 500 mg p.o. b.i.d. 3. Oxycodone 5 mg q.12 hours as needed. 4. Xarelto 10 mg daily in the evening. 5. Prilosec 40 mg daily. 6. Nitroglycerin sublingual as needed. 7. Movantik 25 mg p.o. in the morning. 8. Metoprolol succinate 100 mg p.o. daily. 9. Lisinopril 10 mg daily. 11. Dilaudid 8 mg every 8 hours as needed. 12. Cymbalta 30 mg p.o. daily. 13. Vitamin B12 injection 1000 mcg IM monthly. 14. Cholecalciferol 2 tabs p.o. daily in the evening. 15. Caltrate 600 + vitamin D 1 tab daily. 16. Atorvastatin 40 mg daily. 17. Aspirin 81 mg daily. 18. Amiodarone 200 mg daily in the morning. ALLERGIES: No known drug allergies. FAMILY HISTORY: Father from an HI at age 41. Mother from old age. SOCIAL HISTORY: The patient lives at home with her and nephew. She is independent of her ADLs. No history of smoking, alcohol, or illicit drug use. Her healthcare proxy is her [place]. REVIEW OF SYSTEMS: A 14-point review of systems as mentioned in the HPI, otherwise negative. PHYSICAL EXAMINATION GENERAL: No acute distress, resting comfortably. VITAL SIGNS: Temp is 98.1, pulse rate 76, respiratory rate 14, oxygen saturation 95% on room air, and blood pressure 116/57. HEENT: Head normocephalic. Pupils are equal and reactive. Anicteric. Oropharynx: Mucous membranes are dry. NECK: Supple. No lymphadenopathy. RESPIRATORY: Diminished breath sounds. No wheezes, rhonchi, or rales. CARDIAC: Regular rate and rhythm. Soft systolic murmur heard throughout. ABDOMEN: Hypoactive bowel sounds. Morbidly obese. Mild distention. Soft, nontender. No rebound or guarding. RECTAL: Deferred. Per ER, there is pain in the rectum with surrounding erythema and induration. EXTREMITIES: Trace pretibial edema with varicosities. NEUROLOGIC: Alert and oriented x3. No gross focal neurologic deficits. LABORATORY DATA: White count 20.6, hemoglobin 14.8, hematocrit 46, platelets 271. Sodium 137, potassium 4.2, chloride 102, bicarb 26, BUN 20, creatinine 1.31 , glucose 121, lactic acid 2.7. Abdominal and pelvis CT, sigmoid colon and rectal fecal impaction with wall thickening adjacent fat stranding in presacral edema compatible with stercoral colitis. No pneumatosis or portal venous air. No definitive perforation or abscess. EKG shows normal sinus rhythm. ASSESSMENT: This is a 73-year-old female with past medical history of chronic pain on opioids and Movantik, who presents to the emergency room with 4 to 5 days of constipation, found to have fecal impaction with stercoral colitis. 1. Fecal impaction with stercoral colitis. Assessment: The patient with minimal relief after fecal disimpaction done on the emergency room. I did touch base with Dr. Bang regarding continuing enema. She did recommend a warm water or mineral enema. If it is successful may repeat it again. We will also continue on MiraLAX b.i.d. for now. We do not have Movantik on formulary; recommend the patient did bring it in and that she needs to take this on a more routine basis and not as needed in the setting of when she takes her opioids. Recommend followup with Gastroenterology if there is no improvement in her stool output. 2. Acute kidney injury. She has a modest bump in her creatinine likely from volume depletion. She is also on lisinopril. Plan: We will hold her lisinopril, give her IV fluids, and repeat her labs in the morning. CHRONIC MEDICAL PROBLEMS: As above, we will resume her home medications with the exception holding her lisinopril. We do not have Movantik on formulary. We will attempt to have her bring it in so that she can continue taking that. We will continue her chronic opioids as needed and try to limit escalating this as this will further exacerbate her fecal impaction. FEN: Clear liquid diet with IV fluids, advance as tolerated. DVT prophylaxis: The patient scores high risk. She is on Xarelto. Code status: Full code. PATIENT TIME: Greater than 50 minutes spent doing the history and physical, more than half the time spent in direct patient contact. [id number]/[facility] #: [id number] IVONNE
[2018-07-18 06:30] LABS: ABS Basophils 0 10^3/ul (0-0.2); ABS Eosinophils 0 10^3/ul (0-0.6); ABS Lymphocytes 1.3 10^3/ul (1.0-4.8); ABS Monocytes 1.4 10^3/ul (0-0.8); ABS Nucleated RBC 0 10^3/ul; Eosinophil % 0 %; Hematocrit 40 % (35-47); Hemoglobin 12.6 g/dl (12.0-16.0); Lymphocyte % 8.6 %; Mean Corpuscular HGB Conc 32 g/dl (31-36); Mean Corpuscular Hemoglobin 28 pg (27-31); Mean Corpuscular Volume 88 fL (80-97); Mean Platelet Volume 7.8 fL (7.4-10.4); Nucleated Red Blood Cells % 0.1; Platelet Count 218 10^3/ul (150-450); Red Cell Distribution Width 14 % (10.5-15); White Blood Count 14.7 10^3/ul (3.5-10.8)
[2018-07-18 06:47] LABS: EGFR Non-African American 47.5 (>60)
--- NOTE | 2018-07-18 07:13 | PN ---
Progress Note - Progress Note Date of Service: 07/18/18 Note: Surgery Progress Note Patient is a 73 yo F who presented with 4 days of severe constipation, and sudden onset perianal pain, findings on CT scan for stercoral colitis. This morning she continues to complain about a significant amount of pain but appears more comfortable and is able to lay on her back. She feels that the perianal pain has improved some. Objective: Vital Signs - 24 hr 07/17/18 07/17/18 07/17/18 17:48 17:50 17:51 Temperature 98.1 F Pulse Rate 94 97 96 Respiratory 16 18 12 Rate Blood Pressure 115/73 115/73 (mmHg) O2 Sat by Pulse 94 95 98 Oximetry 07/17/18 07/17/18 07/17/18 18:00 18:12 18:30 Temperature Pulse Rate 99 Respiratory 18 14 18 Rate Blood Pressure 115/80 (mmHg) O2 Sat by Pulse 99 Oximetry 07/17/18 07/17/18 07/17/18 18:40 18:44 18:49 Temperature Pulse Rate 79 78 Respiratory 13 16 8 Rate Blood Pressure 124/98 120/71 123/83 (mmHg) O2 Sat by Pulse 97 98 Oximetry 07/17/18 07/17/18 07/17/18 18:57 18:58 19:00 Temperature Pulse Rate 80 80 80 Respiratory 10 9 8 Rate Blood Pressure 121/64 123/63 (mmHg) O2 Sat by Pulse 97 97 97 Oximetry 07/17/18 07/17/18 07/17/18 19:28 19:44 20:00 Temperature Pulse Rate 80 Respiratory 11 13 15 Rate Blood Pressure 115/67 94/50 (mmHg) O2 Sat by Pulse 93 Oximetry 07/17/18 07/17/18 07/17/18 20:01 20:13 20:25 Temperature Pulse Rate 83 79 Respiratory 13 10 16 Rate Blood Pressure 125/69 129/65 (mmHg) O2 Sat by Pulse 94 95 Oximetry 07/17/18 07/17/18 07/17/18 20:29 20:44 20:58 Temperature Pulse Rate 79 81 78 Respiratory 17 Rate Blood Pressure 113/55 100/62 106/62 (mmHg) O2 Sat by Pulse 97 96 93 Oximetry 07/17/18 07/17/18 07/17/18 21:00 21:06 21:10 Temperature Pulse Rate 78 86 75 Respiratory Rate Blood Pressure 96/48 105/83 (mmHg) O2 Sat by Pulse 94 71 100 Oximetry 07/17/18 07/17/18 07/17/18 21:14 21:15 21:20 Temperature Pulse Rate 75 76 73 Respiratory Rate Blood Pressure 108/63 106/54 104/64 (mmHg) O2 Sat by Pulse 97 94 95 Oximetry 07/17/18 07/17/18 07/17/18 21:23 21:25 21:30 Temperature Pulse Rate 76 79 76 Respiratory Rate Blood Pressure 106/53 111/66 110/86 (mmHg) O2 Sat by Pulse 96 96 96 Oximetry 07/17/18 07/17/18 07/17/18 21:35 21:40 21:45 Temperature Pulse Rate 79 76 76 Respiratory Rate Blood Pressure 129/73 125/84 116/57 (mmHg) O2 Sat by Pulse 94 93 95 Oximetry 07/17/18 07/17/18 07/17/18 21:50 21:55 22:00 Temperature Pulse Rate 78 79 81 Respiratory Rate Blood Pressure 112/59 106/58 (mmHg) O2 Sat by Pulse 94 94 92 Oximetry 07/17/18 07/17/18 07/17/18 22:03 22:05 22:10 Temperature Pulse Rate 82 81 81 Respiratory Rate Blood Pressure 101/61 102/60 101/57 (mmHg) O2 Sat by Pulse 93 92 93 Oximetry 07/17/18 07/17/18 07/17/18 22:15 22:20 22:43 Temperature 99 F 97.9 F Pulse Rate 85 81 74 Respiratory 13 20 Rate Blood Pressure 107/55 101/61 119/65 (mmHg) O2 Sat by Pulse 94 92 100 Oximetry 07/17/18 07/17/18 07/17/18 23:01 23:07 23:34 Temperature 98.7 F Pulse Rate 85 Respiratory 20 20 16 Rate Blood Pressure 104/62 (mmHg) O2 Sat by Pulse 100 Oximetry 07/18/18 07/18/18 07/18/18 01:21 02:59 03:00 Temperature 98.4 F Pulse Rate 76 Respiratory 16 14 Rate Blood Pressure 94/55 104/56 (mmHg) O2 Sat by Pulse 98 Oximetry Intake & Output 07/17/18 07/18/18 07/18/18 22:59 06:59 14:59 Intake Total 3100 Balance 3100 Weight 185 lb 189 lb 1.6 oz Intake: IV Fluids 3100 Other: # Bowel Movements 2 Estimated Stool Amount Large Laboratory Results - last 24 hr 07/17/18 07/17/18 07/17/18 18:22 18:22 18:22 WBC 20.6 H RBC 5.18 Hgb 14.8 Hct 46 MCV 88 MCH 29 MCHC 33 RDW 14 Plt Count 271 MPV 7.8 Neut % (Auto) 88.8 Lymph % (Auto) 5.0 [place] % (Auto) 6.0 Eos % (Auto) 0.1 Baso % (Auto) 0.1 Absolute Neuts (auto) 18.3 H Absolute Lymphs (auto) 1.0 Absolute Monos (auto) 1.2 H Absolute Eos (auto) 0 Absolute Basos (auto) 0 Absolute Nucleated RBC 0 Nucleated RBC % 0 Sodium 137 Potassium 4.2 Chloride 102 Carbon Dioxide 26 Anion Gap 9 BUN 20 Creatinine 1.31 H Est GFR ( Amer) 48.4 Est GFR (Non-Af Amer) 40.0 BUN/Creatinine Ratio 15.3 Glucose 191 H Lactic Acid 2.7 H* Calcium 7.9 L Total Bilirubin 0.50 AST 20 ALT 23 Alkaline Phosphatase 86 Total Protein 6.2 L Albumin 3.7 Globulin 2.5 Albumin/Globulin Ratio 1.5 07/18/18 07/18/18 06:13 06:13 WBC 14.7 H RBC 4.50 Hgb 12.6 Hct 40 MCV 88 MCH 28 MCHC 32 RDW 14 Plt Count 218 MPV 7.8 Neut % (Auto) 81.8 Lymph % (Auto) 8.6 [place] % (Auto) 9.4 Eos % (Auto) 0 Baso % (Auto) 0.2 Absolute Neuts (auto) 12.0 H Absolute Lymphs (auto) 1.3 Absolute Monos (auto) 1.4 H Absolute Eos (auto) 0 Absolute Basos (auto) 0 Absolute Nucleated RBC 0 Nucleated RBC % 0.1 Sodium 140 Potassium 4.3 Chloride 113 H Carbon Dioxide 21 L Anion Gap 6 BUN 18 Creatinine 1.13 H Est GFR ( Amer) 57.4 Est GFR (Non-Af Amer) 47.5 BUN/Creatinine Ratio 15.9 Glucose 150 H Lactic Acid Calcium 6.7 L Total Bilirubin AST ALT Alkaline Phosphatase Total Protein Albumin Globulin Albumin/Globulin Ratio Physical exam: Abd- soft, mildly distended, tender in lower abdomen above the pubis Anus- improved tenderness to palpation, more tender now on right than left perianal area, left perineum enlarged and indurated, minimally tender A.P: 73 yo F admitted with stercoral colitis, surgery had been consulted for possible perirectal abscess prior to CT scan last night. - Recommend GI consult regarding management - Continue antibiotics - On CT scan there was no discrete perianal or perianal collections to drain, there was stranding around the anus extending from the perirectal inflammation. Her pain has slightly improved. Recommend continuing to observe on antibiotics. When the colitis improves hopefully the perianal pain improves as well. If her pain should increase, would recommend re-imaging with MRI to better assess if perirectal abscess has coalesced.
[2018-07-18] MEDS: NS 0.9% 1000 ML* 1,000 ML IV SCH ×2 (08:24→21:42)
[2018-07-18] MEDS: Polyethylene Glycol 3350* 17 GM PACKET PO SCH (08:27)
[2018-07-18] MEDS: CMC:Desvenlafaxine (NF) 50 MG TAB PO SCH (08:28)
[2018-07-18] MEDS: Amiodarone TAB* 200 MG PO SCH (08:28)
[2018-07-18] MEDS: Magnesium Oxide TAB* 400 MG PO SCH ×2 (08:28→20:53)
[2018-07-18] MEDS: Aspirin EC TAB* 81 MG TAB.EC PO SCH (08:28)
[2018-07-18] MEDS: Omeprazole CAP* 20 MG PO SCH (08:28)
[2018-07-18] MEDS ORDERED: NALOXEGOL OXALATE 25 MG PO SCH (09:00)
[2018-07-18] MEDS ORDERED: Senna TAB PO SCH (09:00)
[2018-07-18] MEDS ORDERED: Docusate CAP* 100 MG PO SCH (09:00)
[2018-07-18] MEDS: HYDROmorphone TAB* 4 MG PO PRN ×3 (09:28→21:41)
[2018-07-18] MEDS ORDERED: Gadobenate* (CONTRAST) 529 MG/ML 10 ML SDV IV ONE (10:47)
--- NOTE | 2018-07-18 11:09 | PN ---
GENERAL SURGERY PROGRESS NOTE: DATE OF SERVICE: 07/17/18 This patient is a 73-year-old female who came to the emergency room with 4 days of constipation recent development of perirectal pain. I was consulted earlier in the evening and examined the patient at that time. She was more tender on the left perianal region than the right and there was some induration in the perianal region as well as along the left perineum. Given her history of having the constipation and very short period of perirectal pain, a CT scan was ordered to better ascertain for rectal abnormalities and the possible source of her constipation and/or extent of abscess. The images were reviewed and the results were consistent with sigmoid colon and rectum fecal impaction with wall thickening, presacral edema all of which was compatible with stercoral colitis. There was no pneumatosis, portal venous air, no definite perforation or abscess. There was no definitive perianal abscess. It did appear that there was some inflammation, but again no discrete fluid collection that would possibly make incision and drainage helpful at this time. The patient's vital signs have been stable and her white count returned as 20. I have seen the patient and recommended that she undergo admission for antibiotics , GI consultation and fecal disimpaction as well as enemas as tolerated. [id number]/CPS #: [id number] MTDD
[2018-07-18] MEDS: oxyCODONE TAB* 5 MG TAB PO PRN ×2 (14:31→20:57)
[2018-07-18] MEDS ORDERED: NS 0.9% 500 ML* 500 ML IV ONE (16:42)
[2018-07-18] MEDS: Lidocaine 2% JELLY* 6 ML JELLY TOPICAL SCH ×2 (16:42→20:21)
--- NOTE | 2018-07-18 16:56 | PN ---
Subjective Date of Service: 07/18/18 Interval History: Ms. Waite feels better this morning. She has had multiple BMs overnight and today and is now having diarrhea. She has significant rectal pain in addition to her chronic knee pain. She is unhappy as her pain medications were not ordered per her home dosing. She denies CP, SOB, N/V, dizziness. Appetite is good. Family History: Unchanged from Admission Social History: Unchanged from Admission Past Medical History: Unchanged from Admission Objective Active Medications: Acetaminophen (Tylenol Tab*) 650 mg PO Q4H PRN FEVER/PAIN Al Hydrox/Mg Hydrox/Simethicone (Maalox Plus*) 30 ml PO Q6H PRN INDIGESTION Amiodarone HCl (Cordarone Tab*) 200 mg PO QAM KAYLIE Aspirin (Aspirin Ec Tab*) 81 mg PO QAM KAYLIE Atorvastatin Calcium (Lipitor*) 40 mg PO QPM KAYLIE Desvenlafaxine Succinate (Pristiq (Nf)) 50 mg PO DAILY KAYLIE Hydromorphone HCl (Dilaudid Tab*) 8 mg PO Q4H PRN PAIN Sodium Chloride (Ns 0.9% 1000 Ml*) 1,000 mls @ 125 mls/hr IV PER RATE KAYLIE Piperacillin Sod/Tazobactam (Sod 3.375 gm/ Sodium Chloride) 100 mls @ 25 mls/ hr IVPB Q8H KAYLIE Lidocaine HCl (Lidocaine 2% Jelly*) 1 applic TOPICAL TID KAYLIE Magnesium Oxide (Magox 400 Tab*) 400 mg PO BID KAYLIE Metoprolol Succinate (Toprol Xl Tab*) 100 mg PO QPM KAYLIE Non-Formulary Medication (Naloxegol Oxalate [Movantik]) 25 mg PO QAM KAYLIE Omeprazole (Prilosec Cap*) 40 mg PO DAILY@0730 KAYLIE Ondansetron HCl (Zofran Inj*) 4 mg IV Q4H PRN NAUSEA/VOMITING Oxycodone HCl (Roxycodone Tab*) 10 mg PO Q12HR PRN PAIN Pharmacy Consult (Zosyn Per Pharmacy*) 1 note FOLLOW UP .ZOSYN PER PHARMACY KAYLIE Polyethylene Glycol/Electrolytes (Miralax*) 17 gm PO DAILY KAYLIE Polyethylene Glycol/Electrolytes (Miralax*) 8 gm PO ONCE ONE Rivaroxaban (Xarelto(*)) 10 mg PO QPM KAYLIE Vital Signs - 8 hr 07/18/18 07/18/18 07/18/18 09:06 09:28 11:28 Temperature 98.1 F Pulse Rate 79 Respiratory 14 15 16 Rate Blood Pressure 121/61 (mmHg) O2 Sat by Pulse 100 Oximetry 07/18/18 07/18/18 07/18/18 12:00 14:11 14:31 Temperature 99.0 F Pulse Rate 87 91 Respiratory 18 16 16 Rate Blood Pressure 102/60 119/59 (mmHg) O2 Sat by Pulse 95 95 Oximetry 07/18/18 07/18/18 07/18/18 16:25 16:30 16:37 Temperature 99.4 F Pulse Rate 83 Respiratory 16 17 17 Rate Blood Pressure 113/60 (mmHg) O2 Sat by Pulse 96 Oximetry Oxygen Devices in Use Now: None Appearance: Elderly female laying in bed in NAD Eyes: No Scleral Icterus Ears/Nose/Mouth/Throat: Mucous Membranes Moist Neck: NL Appearance and Movements; NL JVP, Trachea Midline Respiratory: Symmetrical Chest Expansion and Respiratory Effort, Clear to Auscultation Cardiovascular: NL Sounds; No Murmurs; No JVD, RRR Abdominal: - - Significant tenderness to palaption throughout; No distention Extremities: No Edema, No Clubbing, Cyanosis Skin: No Rash or Ulcers Neurological: Alert and Oriented x 3, NL Sensation Lines/Tubes/Other Access: Clean, Dry and Intact Peripheral IV Nutrition: Taking PO's Result Diagrams: 07/18/18 06:13 07/18/18 06:13 Assess/Plan/Problems-Billing Assessment: Ms. Pulliam is a 73 yo with PMH of afib on anticoagulation, chronic pain, depression, anxiety, GERD, and gastric bypass who presented to the ED with c/o 4 -5 days of constipation secondary to opioid use and was found to have a likely perirectal abscess. - Patient Problems (1) Perirectal abscess Current Visit: Yes Status: Acute Code(s): K61.1 - RECTAL ABSCESS SNOMED Code(s): 49136674 Comment: - Significant rectal pain - MRI shows small fluid tract, though no drainable fluid collections - Appreciate surgery consult - Continue zosyn (2) Constipation due to opioid therapy Current Visit: Yes Status: Acute Code(s): K59.03 - DRUG INDUCED CONSTIPATION ; T40.2X5A - ADVERSE EFFECT OF OTHER OPIOIDS, INITIAL ENCOUNTER SNOMED Code(s) : 705053968071356 Comment: - High doses of dilaudid and oxycodone at home - Has been on movantik, though it is unclear if she has actually been taking this daily as prescribed; sees Dr. Velarde as an outpt - Resolved after disimpaction and laxatives - Appreciate GI consult; recommends holding Movantik and continuing miralax ( half a packet tomorrow then back to full dose) - Continue miralax per GI recommendations (3) LENA (acute kidney injury) Current Visit: Yes Status: Acute Code(s): N17.9 - ACUTE KIDNEY FAILURE, UNSPECIFIED SNOMED Code(s): 51942563 Comment: - 2/2 hypovolemia - Improved slightly w/ IVF - Continue IVF (4) Elevated lactic acid level Current Visit: Yes Status: Acute Code(s): R79.89 - OTHER SPECIFIED ABNORMAL FINDINGS OF BLOOD CHEMISTRY SNOMED Code(s): 8711546 Comment: - With associated leukocytosis, but did not meet sepsis criteria - 2/2 perirectal abscess - Continue IVF (5) History of chronic pain Current Visit: No Status: Chronic Priority: Medium Code(s): Z87.898 - PERSONAL HISTORY OF OTHER SPECIFIED CONDITIONS SNOMED Code(s): 137052717 Comment: - Continue home doses of dilaudid and oxycodone (6) Paroxysmal atrial fibrillation Current Visit: Yes Status: Acute Code(s): I48.0 - PAROXYSMAL ATRIAL FIBRILLATION SNOMED Code(s): 678494165 Comment: - NSR noted on EKG in ED - Continue amiodarone, metoprolol, xarelto (7) Hypertension Current Visit: Yes Status: Acute Code(s): I10 - ESSENTIAL (PRIMARY) HYPERTENSION SNOMED Code(s): 61907080 Comment: - Normotensive - Hold lisinopril d/t LENA - Continue metoprolol (8) GERD (gastroesophageal reflux disease) Current Visit: Yes Status: Acute Code(s): K21.9 - GASTRO-ESOPHAGEAL REFLUX DISEASE WITHOUT ESOPHAGITIS SNOMED Code(s): 025322320 Comment: - Continue omeprazole (9) DVT prophylaxis Current Visit: No Status: Acute Priority: Medium Onset Date: 12/08/14 Code(s): OJY4549 - SNOMED Code(s): 328247954 Comment: - Adalbertoskylajoanne (10) Full code status Current Visit: No Status: Acute Priority: Medium Onset Date: 12/08/14 Code(s): Z78.9 - OTHER SPECIFIED HEALTH STATUS SNOMED Code(s): 206386712 Status and Disposition: Inpatient. Anticipate d/c home when medically stable. Attending: Yanci Frey
[2018-07-18] MEDS ORDERED: Atorvastatin* 40 MG TAB PO SCH (18:00)
[2018-07-18] MEDS ORDERED: DULoxetine DR CAP* 30 MG CAP.DR PO SCH (18:00)
[2018-07-18] MEDS ORDERED: Metoprolol Succinate XL TAB* 100 MG PO SCH (18:00)
[2018-07-18] MEDS ORDERED: Rivaroxaban TAB(*) 10 MG PO SCH (18:00)
[2018-07-19] MEDS: ZOSYN 3.375 GM Q8H per EXTENDED INFUSION IVPB SCH ×4 (00:30→10:03)
[2018-07-19] MEDS: HYDROmorphone TAB* 4 MG PO PRN ×3 (01:54→10:05)
[2018-07-19 07:14] LABS: ABS Basophils 0 10^3/ul (0-0.2); ABS Eosinophils 0.2 10^3/ul (0-0.6); ABS Monocytes 1.2 10^3/ul (0-0.8); ABS Neutrophils 5.7 10^3/ul (1.5-7.7); ABS Nucleated RBC 0 10^3/ul; Eosinophil % 1.9 %; Hematocrit 35 % (35-47); Hemoglobin 11.2 g/dl (12.0-16.0); Lymphocyte % 22.4 %; Mean Corpuscular HGB Conc 32 g/dl (31-36); Mean Corpuscular Hemoglobin 29 pg (27-31); Mean Corpuscular Volume 90 fL (80-97); Nucleated Red Blood Cells % 0; Platelet Count 172 10^3/ul (150-450); Red Cell Distribution Width 14 % (10.5-15); White Blood Count 9.2 10^3/ul (3.5-10.8)
[2018-07-19 07:34] VITALS: BP 117/67
[2018-07-19] MEDS ORDERED: Polyethylene Glycol 3350* 17 GM PACKET PO ONE (08:00)
[2018-07-19 08:22] LABS: EGFR Non-African American 63.3 (>60)
--- NOTE | 2018-07-19 09:54 | PN ---
Progress Note - Progress Note Date of Service: 07/19/18 Note: Surgery Progress Note S: Patient feels well. Has had a lot of bowel movements yesterday. Does not have much perirectal pain anymore. No abdominal pain. Tolerating diet. Objective: Vital Signs - 24 hr 07/18/18 07/18/18 07/18/18 11:28 12:00 14:11 Temperature 99.0 F Pulse Rate 87 91 Respiratory 16 18 16 Rate Blood Pressure 102/60 119/59 (mmHg) O2 Sat by Pulse 95 95 Oximetry 07/18/18 07/18/18 07/18/18 14:31 16:25 16:30 Temperature 99.4 F Pulse Rate 83 Respiratory 16 16 17 Rate Blood Pressure 113/60 (mmHg) O2 Sat by Pulse 96 Oximetry 07/18/18 07/18/18 07/18/18 16:37 18:05 19:21 Temperature 98.2 F Pulse Rate 78 78 Respiratory 17 16 Rate Blood Pressure 130/62 109/60 (mmHg) O2 Sat by Pulse 98 97 Oximetry 07/18/18 07/18/18 07/18/18 20:00 20:13 20:57 Temperature Pulse Rate Respiratory 15 18 20 Rate Blood Pressure (mmHg) O2 Sat by Pulse Oximetry 07/18/18 07/18/18 07/19/18 21:41 23:00 00:09 Temperature 98.0 F Pulse Rate 63 Respiratory 20 15 15 Rate Blood Pressure 111/59 (mmHg) O2 Sat by Pulse 98 Oximetry 07/19/18 07/19/18 07/19/18 00:10 01:54 04:19 Temperature 98.2 F Pulse Rate 55 Respiratory 15 15 15 Rate Blood Pressure 126/59 (mmHg) O2 Sat by Pulse 100 Oximetry 07/19/18 07/19/18 05:52 07:21 Temperature 97.6 F Pulse Rate 55 Respiratory 16 16 Rate Blood Pressure 117/67 (mmHg) O2 Sat by Pulse 100 Oximetry Intake & Output 07/18/18 07/19/18 07/19/18 22:59 06:59 14:59 Intake Total 3086 0 Balance 3086 0 Intake: IV Fluids 1838 NS 1838 IVPB 158 Zosyn 158 Oral 1090 0 Other: Estimated Void Medium # Bowel Movements 3 0 Estimated Stool Amount Medium Medium # Voids 1 Laboratory Results - last 24 hr 1207/19/18 07/19/18 19:58 06:57 06:57 WBC 9.2 RBC 3.90 L Hgb 11.2 L Hct 35 MCV 90 MCH 29 MCHC 32 RDW 14 Plt Count 172 MPV 8.0 Neut % (Auto) 62.1 Lymph % (Auto) 22.4 [place] % (Auto) 13.2 Eos % (Auto) 1.9 Baso % (Auto) 0.4 Absolute Neuts (auto) 5.7 Absolute Lymphs (auto) 2.0 Absolute Monos (auto) 1.2 H Absolute Eos (auto) 0.2 Absolute Basos (auto) 0 Absolute Nucleated RBC 0 Nucleated RBC % 0 Sodium 137 Potassium 4.0 Chloride 112 H Carbon Dioxide 21 L Anion Gap 4 BUN 13 Creatinine 0.88 Est GFR ( Amer) 76.6 Est GFR (Non-Af Amer) 63.3 BUN/Creatinine Ratio 14.8 Glucose 99 Lactic Acid 2.0 Calcium 7.4 L Physical exam: abd soft, NTND, slight tenderness at left lateral aspect of rectum MRI pelvis 07/18: images reviewed with radiology. Patient does not have buttock ulceration on exam, what was seen is likely a fold of skin. Unlikely to have a fistula as well, likely just inflammation. A/P: 73 F admitted for stercoral colitis and proctitis, improved on abx and bowel regimen. - Patient does not have perirectal abscess, no ulceration on physical exam. Perirectal pain on admission was from severe proctitis secondary to her stercoral colitis. - Management of colitis, severe constipation per GI - Surgery will sign off. Please feel free to call with any questions.
[2018-07-19] MEDS: Omeprazole CAP* 20 MG PO SCH (09:59)
[2018-07-19] MEDS: CMC:Desvenlafaxine (NF) 50 MG TAB PO SCH (10:04)
[2018-07-19] MEDS: Aspirin EC TAB* 81 MG TAB.EC PO SCH (10:04)
[2018-07-19] MEDS: Magnesium Oxide TAB* 400 MG PO SCH (10:04)
[2018-07-19] MEDS: Lidocaine 2% JELLY* 6 ML JELLY TOPICAL SCH (10:05)
[2018-07-19] MEDS: Amiodarone TAB* 200 MG PO SCH (10:05)
--- NOTE | 2018-07-19 10:30 | PN ---
Subjective Date of Service: 07/19/18 Interval History: Ms. Waite reports feeling much better today. She is eager for discharge to home. She denjies abdominal or perirectal pain. She is tolerating oral intake well. Family History: Unchanged from Admission Social History: Unchanged from Admission Past Medical History: Unchanged from Admission Objective Active Medications: Acetaminophen (Tylenol Tab*) 650 mg PO Q4H PRN Al Hydrox/Mg Hydrox/Simethicone (Maalox Plus*) 30 ml PO Q6H PRN Amiodarone HCl (Cordarone Tab*) 200 mg PO QAM KAYLIE Aspirin (Aspirin Ec Tab*) 81 mg PO QAM KAYLIE Atorvastatin Calcium (Lipitor*) 40 mg PO QPM KAYLIE Desvenlafaxine Succinate (Pristiq (Nf)) 50 mg PO DAILY KAYLIE Hydromorphone HCl (Dilaudid Tab*) 8 mg PO Q4H PRN Sodium Chloride (Ns 0.9% 1000 Ml*) 1,000 mls @ 125 mls/hr IV PER RATE KAYLIE Piperacillin Sod/Tazobactam (Sod 3.375 gm/ Sodium Chloride) 100 mls @ 25 mls/ hr IVPB Q8H KAYLIE Lidocaine HCl (Lidocaine 2% Jelly*) 1 applic TOPICAL TID KAYLIE Magnesium Oxide (Magox 400 Tab*) 400 mg PO BID KAYLIE Metoprolol Succinate (Toprol Xl Tab*) 100 mg PO QPM KAYLIE Omeprazole (Prilosec Cap*) 40 mg PO DAILY@0730 KAYLIE Ondansetron HCl (Zofran Inj*) 4 mg IV Q4H PRN Oxycodone HCl (Roxycodone Tab*) 10 mg PO Q12HR PRN Pharmacy Consult (Zosyn Per Pharmacy*) 1 note FOLLOW UP .ZOSYN PER PHARMACY KAYLIE Polyethylene Glycol/Electrolytes (Miralax*) 17 gm PO DAILY KAYLIE Rivaroxaban (Xarelto(*)) 10 mg PO QPM [facility] Vital Signs: Temp Pulse Resp BP Pulse Ox 97.6 F 55 17 117/67 100 07/19/18 07:21 18 07:21 07/19/18 10:05 07/19/18 07:21 07/19/18 07:21 Oxygen Devices in Use Now: None Appearance: Female sitting up in chair in NAD Eyes: No Scleral Icterus Ears/Nose/Mouth/Throat: Mucous Membranes Moist Respiratory: Symmetrical Chest Expansion and Respiratory Effort, Clear to Auscultation Cardiovascular: NL Sounds; No Murmurs; No JVD, No Edema Abdominal: NL Sounds; No Tenderness; No Distention Extremities: No Edema Skin: No Rash or Ulcers Neurological: Alert and Oriented x 3, NL Muscle Strength and Tone Nutrition: Taking PO's Result Diagrams: 07/19/18 06:57 07/19/18 06:57 Additional Lab and Data: . Microbiology and Other Data: . Assess/Plan/Problems-Billing Assessment: Ms. Pulliam is a 73 yo with PMH of afib on anticoagulation, chronic pain, depression, anxiety, GERD, and gastric bypass who presented to the ED with c/o 4 -5 days of constipation secondary to opioid use and was found to have a stercoral colitis. - Patient Problems (1) Colitis Comment: - Resolved - Stercoral colitis due to stool impaction, severe constipation - Appreciate surgery consult, no perirectal abscess or fistula - Appreciate GI consult, sees Dr. Velarde outpatient. On high doses of dilaudid and oxycodone at home. Had been on movantik, but has not been effective. GI recommends holding Movantik and continuing miralax. No further antibiotics required. (2) Elevated lactic acid level Comment: - With associated leukocytosis, but did not meet sepsis criteria - 2/2 stercoral colitis (3) LENA (acute kidney injury) Comment: - Resolved - 2/2 hypovolemia (4) Hypertension Comment: - Normotensive - Resume lisinopril - Continue metoprolol (5) Paroxysmal atrial fibrillation Comment: - NSR noted on EKG in ED - Continue amiodarone, metoprolol, xarelto (6) GERD (gastroesophageal reflux disease) Comment: - Continue omeprazole (7) History of chronic pain Comment: - Continue home doses of dilaudid and oxycodone (8) DVT prophylaxis Comment: - Xarelto (9) Full code status Comment: Status and Disposition: Inpatient. Discharge to home.
--- NOTE | 2018-07-20 00:11 | DS ---
CC: Dr. Swain * [facility] MEDICINE DISCHARGE SUMMARY: DATE OF ADMISSION: 07/17/18 DATE OF DISCHARGE: 07/19/18 PRIMARY CARE PHYSICIAN: Dr. Swain. ATTENDING PHYSICIAN: Dr. Oz Mcnamara * (dictation provided by Vianey Vargas NP). PRIMARY DIAGNOSIS: Stercoral colitis secondary to stool impaction and severe constipation. SECONDARY DIAGNOSES: 1. Atrial fibrillation. 2. History of intestinal bypass surgery for weight loss. 3. Chronic pain, on high-dose narcotic therapy. 4. Hyperlipidemia. MEDICATIONS AT THE TIME OF DISCHARGE: 1. Desvenlafaxine 50 mg p.o. daily. 2. Magnesium oxide 500 mg p.o. b.i.d. 3. Oxycodone 5 mg p.o. q.12 hours as needed. 4. Rivaroxaban 10 mg p.o. q.p.m. 5. Omeprazole 40 mg p.o. daily. 6. Nitroglycerin 0.4 mg sublingually p.r.n. 7. Metoprolol succinate 100 mg p.o. q.p.m. 8. Lisinopril 10 mg p.o. q.a.m. 9. Dilaudid 8 mg p.o. q.8 hours p.r.n. 10. Duloxetine DR 30 mg p.o. q.p.m. 11. Cyanocobalamin B12 1000 mcg IM monthly. 12. Cholecalciferol 2 tabs p.o. q.p.m. 13. Caltrate with vitamin D 1 tab p.o. daily. 14. Atorvastatin 40 mg p.o. q.p.m. 15. Aspirin 81 mg p.o. q.a.m. 16. Amiodarone 200 mg p.o. q.a.m. 17. Polyethylene glycol 17 g p.o. daily (new medication). Hold Movantik. HOSPITAL COURSE: Ms. Waite is a 73-year-old female with past medical history of chronic pain, on high-dose narcotic therapy as well as atrial fibrillation, on Xarelto, who presented to the hospital on 07/17/18, with concern for perianal pain and constipation. Please see the dictated H and P from Rosie Mejias DO, for complete details. In brief, the patient has reported long-term history of severe constipation that had been much worse over the past 4 days prior to admission. She, thereafter, developed severe perirectal pain. In the emergency room, she had a CT that showed "sigmoid colon and rectum fecal impaction with wall thickening, adjacent fat stranding, and presacral edema compatible with stercoral colitis; no pneumatosis or portal venous air; no definite perforation or abscess." The patient was also noted to have leukocytosis on arrival with white blood cell count of 20.6. This was consistent with her history of stercoral colitis, but she did not evidence signs of sepsis. The patient was admitted to the hospital. She was started on zosyn. She was seen in consultation by Dr. Alejandra Grant from the surgical team and I refer you to her note for complete details. In brief, she ultimately recommended a pelvis MRI for further evaluation. It showed the following: "Likely small tract of fluid extending from the left buttock, ulcer to the left side of the rectum, no drainable fluid collections are noted, phlegmonous changes are noted , presacral edema is noted." Dr. Grant felt that there was no evidence of abscess , drainable fluid collection, or fistula. She recommended that GI be consulted and further management of her severe constipation be addressed with them. Ms. Waite was seen in consultation by Dr. Goldstein from the gastroenterological team. The patient follows typically with Dr. Velarde outpatient and had been on Movantik. She states she was taking it as directed but did not have any relief with the use of this medication. She states that she has not used MiraLAX in the past. She has had good relief of her constipation while here in the hospital with multiple bowel movements with the use of MiraLAX. Dr. Goldstein recommends that the patient be discharged to home on MiraLAX and that she can follow up with him in the office (per her request). There is no indication for further antibiotics. Her pain is resolved. Her vitals are stable. She is tolerating oral intake well. Ms. Waite is medically stable for discharge to home to follow up with her primary care physician and with Dr. Goldstein. DISPOSITION: To home. DIET: High fiber, low salt, low fat. ACTIVITY: As tolerated and with mobility encouraged to prevent constipation. FOLLOWUP INSTRUCTIONS: 1. Please follow up with Dr. Swain within the next week regarding this hospitalization. 2. Please follow up with Dr. Goldstein within the next month regarding this hospitalization. The patient strongly encouraged to return to the emergency room should she have abdominal pain or perirectal pain or unremitting constipation. TIME SPENT: Approximately 60 minutes was spent on the discharge of this patient , more than half time was spent with the patient at the bedside, reviewing the events leading up to this hospitalization, performing the physical examination, and reviewing my plan of care. VIANEY VARGAS NP [id number]/[facility] #: [id number] IVONNE
[2018-07-20] MEDS ORDERED: Polyethylene Glycol 3350* 17 GM PACKET PO SCH (09:00)
== END 2018-07-19 13:05 | disposition home or self-care (01) | DRG 392 ==
LOC: ED 17:43 → MED 21:35
PROVIDERS: ADMIT Pediatrics; ATTEND Internal Medicine
DX: K52.89 Other specified noninfective gastroenteritis and colitis (principal); N17.9 Acute kidney failure, unspecified; K61.1 Rectal abscess; G89.29 Other chronic pain; F41.9 Anxiety disorder, unspecified; K21.9 Gastro-esophageal reflux disease without esophagitis; K59.03 Drug induced constipation; T40.2X5A Adverse effect of other opioids, initial encounter; E78.5 Hyperlipidemia, unspecified; M19.90 Unspecified osteoarthritis, unspecified site; I48.0 Paroxysmal atrial fibrillation; F32.9 Major depressive disorder, single episode, unspecified; E53.8 Deficiency of other specified B group vitamins; I50.9 Heart failure, unspecified; I25.10 Atherosclerotic heart disease of native coronary artery without angina pectoris; M54.2 Cervicalgia; H26.9 Unspecified cataract; K62.89 Other specified diseases of anus and rectum; M25.562 Pain in left knee; M25.561 Pain in right knee; R79.89 Other specified abnormal findings of blood chemistry; Z98.84 Bariatric surgery status; Z83.3 Family history of diabetes mellitus; Z79.01 Long term (current) use of anticoagulants; Y92.9 Unspecified place or not applicable; Z79.82 Long term (current) use of aspirin; Z87.442 Personal history of urinary calculi; Z90.49 Acquired absence of other specified parts of digestive tract; Z90.89 Acquired absence of other organs; Z82.49 Family history of ischemic heart disease and other diseases of the circulatory system; Z80.0 Family history of malignant neoplasm of digestive organs
CPT/HCPCS: 36415; 72197; 74177; 80048; 80053; 83605; 85025; 87040; 93005; 99284; A9270-GY; A9577; J2270; J2543; J2704; Q9967

== ENCOUNTER 2019-05-27 20:35 | Observation (INO) | payer MEDICARE ==
[2019-05-27 22:00] LABS: ABS Basophils 0.1 10^3/ul (0-0.2); ABS Eosinophils 0.1 10^3/ul (0-0.6); ABS Lymphocytes 0.9 10^3/ul (1.0-4.8); ABS Monocytes 1.1 10^3/ul (0-0.8); ABS Neutrophils 15.2 10^3/ul (1.5-7.7); Eosinophil % 0.7 %; Hematocrit 42 % (35-47); Lymphocyte % 5.3 %; Mean Corpuscular HGB Conc 34 g/dL (31-36); Mean Corpuscular Hemoglobin 29 pg (27-31); Mean Corpuscular Volume 85 fL (80-97); Mean Platelet Volume 7.5 fL (7.4-10.4); Platelet Count 263 10^3/uL (150-450); Red Blood Count 4.88 10^6 /uL (3.70-4.87); Red Cell Distribution Width 14 % (10-15); White Blood Count 17.5 10^3/uL (3.5-10.8)
[2019-05-27 22:13] LABS: Influenza A Molecular NEGATIVE (Negative); Influenza B Molecular NEGATIVE (Negative)
[2019-05-27 22:18] LABS: Albumin/Globulin Ratio 1.4 (1-3); BUN/Creatinine Ratio 14.6 (8-20); C Reactive Protein 12.33 mg/L (<8.01); Calcium 8.8 mg/dL (8.6-10.3); EGFR African American 75.4 (>60); EGFR Non-African American 62.3 (>60); Globulin 2.9 g/dL (2-4); Potassium 4.3 mmol/L (3.5-5.0); Total Bilirubin 0.7 mg/dL (0.2-1.0); Total Protein 6.9 g/dL (6.4-8.9)
[2019-05-27 22:19] LABS: Troponin I 0.01 ng/mL (<0.04)
[2019-05-27] MEDS ORDERED: Iohexol 350* (CONTRAST) 500 ML MDV IV ONE (22:22)
--- OUTSIDE RECORDS SUMMARY | 2019-05-27 22:31 | XMS REPORT | Continuity of Care Document ---
:1945 External Reference #:[id number] Author Name Saravanan Aguilar DO, MPH Address [address] [place] [address], [address] [place] [id number] Care Team Providers Name Role Phone Manoj Swain M.D. - Family Care Team Information Forming Department End Finder [phone] Medicine Saeid Patel P., M.D. - Care Team Information Forming Department End Finder [phone] Orthopaedic Surgery of the Spine Problems Active Problems Provider Date Long-term current use of opiate analgesic Aguilar, Saravanan, DO, MPH Onset: 2018 drug Drug-induced constipation Aguilar, Saravanan, DO, MPH Onset: 02/21/2019 Primary focal hyperhidrosis Aguilar, Saravanan, DO, MPH Onset: 02/21/2019 Spondylolisthesis L5/S1 level Aguilar, Saravanan, DO, MPH Onset: 02/21/2019 Knee pain Aguilar, Saravanan, DO, MPH Onset: 02/21/2019 Low back pain Aguilar, Saravanan, DO, MPH Onset: 02/21/2019 Chronic pain Aguilar, Saravanan, DO, MPH Onset: 02/21/2019 Social History Type Date Description Comments Sex Unknown Tobacco Use Start: Unknown End: Unknown Patient is a former smoker Smoking Status Reviewed: 04/24/19 Patient is a former smoker Allergies, Adverse Reactions, Alerts Description No Known Drug Allergies Medications Active Medications SIG Qnty Indications Ordering Provider Date Oxycodone HCL si by mouth 60tabs Saravanan Aguilar, DO, 07/24/2016 10mg every 12 hours as MPH Tablets directed chronic pain patient Movantik 1 by mouth in the 30tabs AguilarSaravanan pantoja, DO, 12/01/2015 25mg Tablets morning MPH Dilaudid si-2 by mouth 180tabs Saravanan Aguialr DO, 08/04/2014 8mg Tablets every 8 hours as MPH directed chronic pain patient Vitamin D qd Unknown Caltrate 600 1 po qd ud 30tabs Unknown 1500mg Tablets Vitamin B12 Unknown 1000mcg Tablets ER Metoprolol Tartrate Unknown 50mg Tablets Lisinopril Unknown 10mg Tablets Amiodarone HCL 1 by mouth every Unknown 100mg day Tablets Lipitor Unknown 100mg Tablets Magnesium Oxide Unknown (Antacid) 500mg Capsules Xarelto Unknown 20mg Tablets Oxybutynin Chloride daily Unknown ER 10mg Tablets ER 24HR Guanfacine HCL ER Unknown 2mg Tablets ER 24HR History Medications Oxycodone HCL si by mouth 120tabs Saravanan Aguilar, 03/25/2019 - 5mg every 12 hours as DO MPH 04/24/2019 Tablets directed chronic pain patient Immunizations Description No Information Available Vital Signs Date Vital Result Comment 04/24/2019 10:48am BP Systolic 122 mmHg BP Diastolic 74 mmHg Heart Rate 78 /min Respiratory Rate 20 /min Height 66.5 inches 5'6.50" Weight 180.00 lb Pain Level 7 Pain at this time. Pain Level With Medicine 6 on average with meds Pain Level Without Medicine 9 without meds BMI (Body Mass Index) 28.6 kg/m2 03/25/2019 11:18am BP Systolic 120 mmHg BP Diastolic 72 mmHg Heart Rate 74 /min Respiratory Rate 20 /min Height 66.5 inches 5'6.50" Weight 172.00 lb Pain Level 6 Pain at this time. Pain Level With Medicine 5 on average with meds Pain Level Without Medicine 9 without meds BMI (Body Mass Index) 27.3 kg/m2 Results Description No Information Available Procedures Date Code Description Status 11/21/2018 05028 Brief Emotional/Behav Assessment W/ Scoring Doc Per Completed Standard Inst Medical Devices Description No Information Available Encounters Type Date Location Provider Dx Diagnosis Office Visit 03/25/2019 Main Office as Of Saravanan Aguilar DO, G89.29 Other chronic pain 11:15a 09/13/13 MPH M43.17 Spondylolisthesis, lumbosacral region M25.561 Pain in right knee M25.562 Pain in left knee M54.5 Low back pain 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 Z63.79 Other stressful life events affecting family and household Office Visit 02/21/2019 11:30a Main Office as Saravanan Aguilar G89.29 Other chronic Of 09/13/13 DO, MPH pain M54.5 Low back pain M43.17 Spondylolisthesis, lumbosacral region M25.561 Pain in right knee M25.562 Pain in left knee L74.519 Primary focal hyperhidrosis, unspecified K59.03 Drug induced constipation 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 Office Visit 01/22/2019 10:45a Main Office as Saravanan Aguilar G89.29 Other chronic Of 09/13/13 DO, MPH pain M25.562 Pain in left knee M25.561 Pain in right knee M54.5 Low back pain Z79.891 jail (current) use of opiate analgesic Z71.89 Other specified counseling Office Visit 12/23/2018 11:00a Main Office as Saravanan Aguilar G89.29 Other chronic Of 09/13/13 DO, MPH pain M25.562 Pain in left knee M25.561 Pain in right knee M54.5 Low back pain 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 Office Visit 11/21/2018 11:30a Main Office as Saravanan Aguilar G89.29 Other chronic Of 09/13/13 DO, MPH pain M25.552 Pain in left hip M54.5 Low back pain M25.562 Pain in left knee M25.561 Pain in right knee Z13.31 Encounter for screening for depression 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 Z71.89 Other specified counseling Office Visit 10/23/2018 11:45a Main Office as Saravanan Aguilar G89.29 Other chronic Of 09/13/13 DO, MPH pain M25.552 Pain in left hip M54.5 Low back pain M25.562 Pain in left knee M25.561 Pain in right knee Z63.6 Dependent relative needing care at home Z79.891 jail (current) use of opiate analgesic Assessments Date Code Description Provider 04/24/2019 G89.29 Other chronic pain Aguilar, Saravanan, DO, MPH 04/24/2019 M25.561 Pain in right knee Aguilar, Saravanan, DO, MPH 04/24/2019 M25.562 Pain in left knee Aguilar, Saravanan, DO, MPH 04/24/2019 M54.5 Low back pain Aguilar, Saravanan, DO, MPH 04/24/2019 M43.17 Spondylolisthesis, lumbosacral region Aguilar, Saravanan, DO, MPH 04/24/2019 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 Aguilar, Saravanan , DO, MPH 04/24/2019 Z63.79 Other stressful life events affecting family Aguilar, Saravanan , DO, MPH and household 03/25/2019 G89.29 Other chronic pain Aguilar, Saravanan, DO, MPH 03/25/2019 M43.17 Spondylolisthesis, lumbosacral region Aguilar, Saravanan, DO, MPH 03/25/2019 M25.561 Pain in right knee Aguilar, Saravanan, DO, MPH 03/25/2019 M25.562 Pain in left knee Aguilar, Saravanan, DO, MPH 03/25/2019 M54.5 Low back pain Aguilar, Saravanan, DO, MPH 03/25/2019 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 Aguilar, Saravanan , DO, MPH 03/25/2019 Z63.79 Other stressful life events affecting family Aguilar, Saravanan , DO, MPH and household 02/21/2019 G89.29 Other chronic pain Aguilar, Saravanan, DO, MPH 02/21/2019 M54.5 Low back pain Aguilar, Saravanan, DO, MPH 02/21/2019 M43.17 Spondylolisthesis, lumbosacral region Aguilar, Saravanan, DO, MPH 02/21/2019 M25.561 Pain in right knee Aguilar, Saravanan, DO, MPH 02/21/2019 M25.562 Pain in left knee Aguilar, Saravanan, DO, MPH 02/21/2019 L74.519 Primary focal hyperhidrosis, unspecified Aguilar, Saravanan, DO , MPH 02/21/2019 K59.03 Drug induced constipation Aguilar, Saravanan, DO, MPH 02/21/2019 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 Aguilar, Saravanan , DO, MPH 01/22/2019 G89.29 Other chronic pain Aguilar, Saravanan, DO, MPH 01/22/2019 M25.562 Pain in left knee Aguilar, Saravanan, DO, MPH 01/22/2019 M25.561 Pain in right knee Aguilar, Saravanan, DO, MPH 01/22/2019 M54.5 Low back pain Aguilar, Saravanan, DO, MPH 01/22/2019 Z79.891 jail (current) use of opiate analgesic Aguilar, Saravanan , DO, MPH 01/22/2019 Z71.89 Other specified counseling Aguilar, Saravanan, DO, MPH 12/23/2018 G89.29 Other chronic pain Aguilar, Saravanan, DO, MPH 12/23/2018 M25.562 Pain in left knee Aguilar, Saravanan, DO, MPH 12/23/2018 M25.561 Pain in right knee Aguilar, Saravanan, DO, MPH 12/23/2018 M54.5 Low back pain Aguilar, Saravanan, DO, MPH 12/23/2018 Z79.891 jail (current) use of opiate analgesic Aguilar, Saravanan , DO, MPH 11/21/2018 G89.29 Other chronic pain Aguilar, Saravanan, DO, MPH 11/21/2018 M25.552 Pain in left hip Aguilar, Saravanan, DO, MPH 11/21/2018 M54.5 Low back pain Aguilar, Saravanan, DO, MPH 11/21/2018 M25.562 Pain in left knee Aguilar, Saravanan, DO, MPH 11/21/2018 M25.561 Pain in right knee Aguilar, Saravanan, DO, MPH 11/21/2018 Z13.31 Encounter for screening for depression Aguilar, Saravanan, DO, MPH 11/21/2018 Z79.891 jail (current) use of opiate analgesic Aguilar, Saravanan , DO, MPH 11/21/2018 Z71.89 Other specified counseling Saravanan Aguilar DO MPH 10/23/2018 G89.29 Other chronic pain Saravanan Aguilar DO MPH 10/23/2018 M25.552 Pain in left hip Saravanan Aguilar DO MPH 10/23/2018 M54.5 Low back pain Saravanan Aguilar DO MPH 10/23/2018 M25.562 Pain in left knee Saravanan Aguilar DO MPH 10/23/2018 M25.561 Pain in right knee Saravanan Aguilar DO MPH 10/23/2018 Z63.6 Dependent relative needing care at home Saravanan Aguilar DO MPH 10/23/2018 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 Symptoms and complaints discussed and reviewed today. No significant changes in physical findings. Continue current medical pain management.M25.561 Pain in right kneeComments:Chronic.Symptoms and complaints discussed and reviewed today. No significant changes in physical findings. Continue current medical pain management.M25.562 Pain in left kneeComments: Chronic.Symptoms and complaints discussed and reviewed today. No significant changes in physical findings. Continue current medical pain management.M54.5 Low back painComments:Chronic. Symptoms and complaints discussed and reviewed today.No changes in physical findings. Patient is stable and comfortable when current medical therapy is rendered.M43.17 Spondylolisthesis, lumbosacral regionComments:Chronic. Symptoms and complaints discussed and reviewed today. No significant changes in physical findings. Continue current medical pain management.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New Labs:Urine Drug Screen, Ordered: 04/24/19Comments:Urine drug screen sample taken today to monitor opiate use and to monitor use of illicit substances.Will discuss results at next appointment.The following tests were ordered:6 AM, AMPH, JOSE, SARAH, BUP, CARIS, COCM, COT, ETG, FENT, MCSHSG, OPI, OXY, PCP, TAPEN, XTSY, ZOLP. A urine drug test (UDT) was ordered for this patient and collected on site today. Creatinine has been ordered as well for specimen validity, not for kidney function. Preliminary UDT results are not final and should not be used to determine patient care or plan of treatment. Initially a qualitative immunoassay screen will be done. Any inconsistent or positive findings will be further tested with a more comprehensive quantitative confirmation LCMS study. It is part of the treatment process of prescribing controlled substances and is considered standard of care.Z63.79 Other stressful life events affecting family and householdComments:Reassurance and counseling.AllComments:Continue current medical pain management; injection therapy, osteopathic manipulation, PT / modalities, and consults as needed to manage chronic pain.Non - opioid pain management discussed and optionsdiscussed.Side effects discussed; anticipatory guidance given. Patient clearly understand and agree with all medical treatments and suggestions. 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 Importance of regular nutrition throughout the day discussed.Activity as toleratedContinue with PCP Functional Status Description No Information Available Mental Status Description No Information Available Referrals Description No Information Available
[2019-05-27] MEDS ORDERED: NS 0.9% 1000 ML** 1,000 ML IV ONE (22:44)
--- NOTE | 2019-05-27 22:54 | ED ---
Shortness of Breath - HPI Summary HPI Summary: 74-year-old female presents with shortness breath today. States it started out of nowhere. She states that it is resolved. States she just doesn't feel right. She states that she feels ill. No chest pain. Admits to sore throat. Admits to sinus congestion. No fevers. She denies any headache. She has had a cough for past couple hours. No bowel pain. States she's felt nauseous. No vomiting. Has history of cardiac issues. No recent travel. She is on xarleto for A. fib. no history of asthma or copd. is not a smoker. - History of Current Complaint Chief Complaint: EDShortnessOfBreath Time Seen by Provider: 05/27/19 20:56 - Allergy/Home Medications Allergies/Adverse Reactions: Allergies Allergy/AdvReac Type Severity Reaction Status Date / Time No Known Allergies Allergy Verified 01/07/19 11:30 Home Medications: Home Medications Amiodarone TAB* [Cordarone TAB*] 100 mg PO DAILY 05/27/19 [History Confirmed ] Atorvastatin* [Lipitor*] 20 mg PO DAILY 05/27/19 [History Confirmed 05/27/19] Metoprolol Succinate XL TAB* [Toprol XL TAB*] 50 mg PO DAILY 05/27/19 [History Confirmed 05/27/19] Naloxegol Oxalate [Movantik] 25 mg PO DAILY 05/27/19 [History Confirmed 05/27/19 ] Oxybutynin Chloride [Oxybutynin Chloride ER] 15 mg PO DAILY 05/27/19 [History Confirmed 05/27/19] Oxycodone TAB(NF) [Oxycodone HCl 10 MG] 10 mg PO Q12HR PRN 05/27/19 [History Confirmed 05/27/19] guanFACINE TAB* [Tenex TAB*] 1 mg PO BEDTIME 05/27/19 [History Confirmed ] Hydromorphone HCl 8 - 16 mg PO Q8H MDD 48MG 05/28/19 [History Confirmed 05/28/19 ] PMH/Surg Hx/FS Hx/Imm Hx Endocrine/Hematology History: Denies: Hx Diabetes, Hx Thyroid Disease Cardiovascular History: Reports: Hx Angina, Hx Congestive Heart Failure, Hx Coronary Artery Disease, Hx Hypercholesterolemia Denies: Hx Hypertension, Hx Pacemaker/ICD, Other Cardiovascular Problems/ Disorders Respiratory History: Reports: Other Respiratory Problems/Disorders - GASP FOR BREATH AT TIMES PRIOR TO CARDIAC MEDICATION- 1+YEARS AGO Denies: Hx Asthma, Hx Chronic Obstructive Pulmonary Disease (COPD) GI History: Reports: Other GI Disorders - jejunoileal bypass Denies: Hx Gastroesophageal Reflux Disease, Hx Ulcer History: Reports: Hx Kidney Stones Denies: Hx Renal Disease Musculoskeletal History: Reports: Hx Arthritis, Other Musculoskeletal History - Chronic Neck Pain Sensory History: Reports: Hx Cataracts, Hx Contacts or Glasses Denies: Hx Hearing Aid Opthamlomology History: Reports: Hx Cataracts, Hx Contacts or Glasses Psychiatric History: Reports: Hx Anxiety, Hx Depression Denies: Hx Panic Disorder - Cancer History Hx Chemotherapy: No Hx Radiation Therapy: No - Surgical History Surgery Procedure, Year, and Place: Jujunum/illium bypass 1976-. CHOLECYSTECTOMY. APPY. TUMMY TUCK - COSMETIC,. HEMATOMA REMOVED FROM UNDER CHIN. TONSILECTOMY. CATARACTS Hx Anesthesia Reactions: No Infectious Disease History: No Infectious Disease History: Denies: Hx Hepatitis, Hx Human Immunodeficiency Virus (HIV), Traveled Outside the [place] in Last 30 Days - Family History Known Family History: Positive: Cardiac Disease, Hypertension, Diabetes - Social History Alcohol Use: None Substance Use Type: Reports: None Smoking Status (MU): Never Smoked Tobacco Review of Systems Negative: Fever Positive: Sore Throat Negative: Chest Pain Positive: Shortness Of Breath, Cough All Other Systems Reviewed And Are Negative: Yes Physical Exam Triage Information Reviewed: Yes Vital Signs On Initial Exam: Initial Vitals Temp Pulse Resp BP Pulse Ox 98 F 102 15 120/87 93 05/27/19 20:46 05/27/19 20:46 05/27/19 20:46 05/27/19 20:46 05/27/19 20:46 Vital Signs Reviewed: Yes Appearance: Positive: Well-Appearing Skin: Positive: Warm, Dry Head/Face: Positive: Normal Head/Face Inspection Eyes: Positive: Normal, EOMI, MIRANDA, Conjunctiva Clear ENT: Positive: Normal ENT inspection, Pharynx normal, TMs normal Respiratory/Lung Sounds: Positive: Clear to Auscultation, Breath Sounds Present Cardiovascular: Positive: Normal, RRR Abdomen Description: Positive: Nontender, Soft Bowel Sounds: Positive: Present Musculoskeletal: Positive: Normal Neurological: Positive: Normal Psychiatric: Positive: Normal Procedures - Sedation Patient Received Moderate/Deep Sedation with Procedure: No Diagnostics - Vital Signs Vital Signs Temp Pulse Resp BP Pulse Ox 05/27/19 20:46 98 F 102 15 120/87 93 - Laboratory Lab Results: Lab Results 05/27/19 05/27/19 05/27/19 Range/Units 21:47 21:50 21:52 WBC 17.5 H (3.5-10.8) 10^3/uL RBC 4.88 H (3.70-4.87) 10^6 /uL Hgb 14.0 (12.0-16.0) g/dL Hct 42 (35-47) % MCV 85 (80-97) fL MCH 29 (27-31) pg MCHC 34 (31-36) g/dL RDW 14 (10-15) % Plt Count 263 (150-450) 10^3/uL MPV 7.5 (7.4-10.4) fL Neut % (Auto) 87.2 % Lymph % (Auto) 5.3 % Garden % (Auto) 6.3 % Eos % (Auto) 0.7 % Baso % (Auto) 0.5 % Absolute Neuts (auto) 15.2 H (1.5-7.7) 10^3/ul Absolute Lymphs (auto) 0.9 L (1.0-4.8) 10^3/ul Absolute Monos (auto) 1.1 H (0-0.8) 10^3/ul Absolute Eos (auto) 0.1 (0-0.6) 10^3/ul Absolute Basos (auto) 0.1 (0-0.2) 10^3/ul Absolute Nucleated RBC 0.0 10^3/ul Nucleated RBC % 0.0 D-Dimer, Quantitative 489 H (Less Than 230) ng/mL Sodium (135-145) mmol/L Potassium (3.5-5.0) mmol/L Chloride (101-111) mmol/L Carbon Dioxide (22-32) mmol/L Anion Gap (2-11) mmol/L BUN (6-24) mg/dL Creatinine (0.51-0.95) mg/dL Est GFR ( Amer) (>60) Est GFR (Non-Af Amer) (>60) BUN/Creatinine Ratio (8-20) Glucose (70-100) mg/dL Lactic Acid (0.5-2.0) mmol/L Calcium (8.6-10.3) mg/dL Total Bilirubin (0.2-1.0) mg/dL AST (13-39) U/L ALT (7-52) U/L Alkaline Phosphatase (34-104) U/L Troponin I (<0.04) ng/mL C-Reactive Protein (<8.01) mg/L B-Natriuretic Peptide (<=100) pg/mL Total Protein (6.4-8.9) g/dL Albumin (3.2-5.2) g/dL Globulin (2-4) g/dL Albumin/Globulin Ratio (1-3) Influenza A (Rapid) Negative (Negative) Influenza B (Rapid) Negative (Negative) 05/27/19 05/27/19 05/27/19 Range/Units 21:52 21:53 21:53 WBC (3.5-10.8) 10^3/uL RBC (3.70-4.87) 10^6 /uL Hgb (12.0-16.0) g/dL Hct (35-47) % MCV (80-97) fL MCH (27-31) pg MCHC (31-36) g/dL RDW (10-15) % Plt Count (150-450) 10^3/uL MPV (7.4-10.4) fL Neut % (Auto) % Lymph % (Auto) % Garden % (Auto) % Eos % (Auto) % Baso % (Auto) % Absolute Neuts (auto) (1.5-7.7) 10^3/ul Absolute Lymphs (auto) (1.0-4.8) 10^3/ul Absolute Monos (auto) (0-0.8) 10^3/ul Absolute Eos (auto) (0-0.6) 10^3/ul Absolute Basos (auto) (0-0.2) 10^3/ul Absolute Nucleated RBC 10^3/ul Nucleated RBC % D-Dimer, Quantitative (Less Than 230) ng/mL Sodium 129 L (135-145) mmol/L Potassium 4.3 (3.5-5.0) mmol/L Chloride 98 L (101-111) mmol/L Carbon Dioxide 23 (22-32) mmol/L Anion Gap 8 (2-11) mmol/L BUN 13 (6-24) mg/dL Creatinine 0.89 (0.51-0.95) mg/dL Est GFR ( Amer) 75.4 (>60) Est GFR (Non-Af Amer) 62.3 (>60) BUN/Creatinine Ratio 14.6 (8-20) Glucose 154 H (70-100) mg/dL Lactic Acid 1.6 (0.5-2.0) mmol/L Calcium 8.8 (8.6-10.3) mg/dL Total Bilirubin 0.70 (0.2-1.0) mg/dL AST 14 (13-39) U/L ALT 23 (7-52) U/L Alkaline Phosphatase 104 (34-104) U/L Troponin I 0.01 (<0.04) ng/mL C-Reactive Protein 12.33 H (<8.01) mg/L B-Natriuretic Peptide 46 (<=100) pg/mL Total Protein 6.9 (6.4-8.9) g/dL Albumin 4.0 (3.2-5.2) g/dL Globulin 2.9 (2-4) g/dL Albumin/Globulin Ratio 1.4 (1-3) Influenza A (Rapid) (Negative) Influenza B (Rapid) (Negative) Result Diagrams: 05/27/19 21:47 05/27/19 21:52 Lab Statement: Any lab studies that have been ordered have been reviewed, and results considered in the medical decision making process. - Radiology chest Radiology Interpretation Completed By: ED Physician Summary of Radiographic Findings: no acute findings - CT cta CT Interpretation Completed By: Radiologist Summary of CT Findings: IMPRESSION: 1. No pulmonary emboli. 2. Stable left lower lobe pulmonary nodule showing greater than 2 year stability. Based on current Thomas guidelines, no followup is recommended. 3. Small hiatal hernia. - EKG No standard instances Cardiac Rate: NL EKG Rhythm: Sinus Rhythm EKG Comparison: No Significant Change Summary of EKG Findings: sinus rhythm Re-Evaluation - Re-Evaluation First Eval Re-Evaluation Time: 23:48 Comment: removed from oxygen at o2 dropped to 88. Second Eval Re-Evaluation Time: 00:55 Comment: unchanged after breathing treatment Third Eval Re-Evaluation Time: 02:26 Comment: patient continues to destat, will switch to oxy mask Course/Dx - Course Course Of Treatment: 74-year-old female presents with shortness breath today. States it started out of nowhere. She states that it is resolved. States she just doesn't feel right. She states that she feels ill. No chest pain. Admits to sore throat. Admits to sinus congestion. No fevers. No bowel pain. States she's felt nauseous. No vomiting. Has history of cardiac issues. No recent travel. She is on xarleto for A. fib. On exam lungs clear to auscultation. EKG shows sinus rhythm. D-dimer is elevated. White blood cell count 17. CTA shows no acute findings. chest xray normal. troponin zero. crp elevated. gave breathing treatments with no improvement. bnp normal. patient is requiring 3-4 liters oxygen to keep oxygen at 93. discussed case with dr cooley who agrees to admit. - Diagnoses Differential Diagnosis/HQI/PQRI: Positive: Bronchitis, Pneumonia, Pulmonary Embolism Provider Diagnoses: Hypoxia - Critical Care Time Critical Care Time: 30-74 min - 40mins Discharge ED - Sign-Out/Discharge Documenting (check all that apply): Patient Departure - Discharge Plan Condition: Stable Disposition: ADMITTED TO [facility] - Billing Disposition and Condition Condition: STABLE Disposition: Admitted to [facility]
[2019-05-27] MEDS ORDERED: Albuterol/Ipratropium NEB.SOL* Albuterol 2.5 MG/Ipratropium 0.5 MG 3 ML INH ONE (23:46)
[2019-05-27] MEDS ORDERED: methylPREDNISolone 125 MG* 2 ML VIAL IV ONE (23:47)
[2019-05-27] MEDS ORDERED: Magnesium Sulfate 2 GM IV* 2 GM/50 ML BAG IVPB ONE (23:48)
[2019-05-28] MEDS ORDERED: oxyCODONE TAB* 5 MG TAB PO PRN (01:58)
[2019-05-28 01:59] LABS: Magnesium 1.9 mg/dL (1.9-2.7)
[2019-05-28] MEDS ORDERED: Nitroglycerin TAB 0.4 MG* 0.4 MG TAB SL PRN (02:11)
[2019-05-28] MEDS ORDERED: HYDROmorphone TAB* 4 MG PO PRN (02:11)
[2019-05-28] MEDS ORDERED: Albuterol/Ipratropium NEB.SOL* Albuterol 2.5 MG/Ipratropium 0.5 MG 3 ML INH PRN (02:16)
[2019-05-28 06:15] LABS: ABS Lymphocytes 0.9 10^3/ul (1.0-4.8); ABS Monocytes 0.2 10^3/ul (0-0.8); ABS Neutrophils 12.4 10^3/ul (1.5-7.7); Eosinophil % 0.3 %; Hematocrit 41 % (35-47); Hemoglobin 13.9 g/dL (12.0-16.0); Lymphocyte % 6.9 %; Mean Corpuscular HGB Conc 34 g/dL (31-36); Mean Corpuscular Hemoglobin 29 pg (27-31); Mean Corpuscular Volume 84 fL (80-97); Mean Platelet Volume 7.4 fL (7.4-10.4); Platelet Count 235 10^3/uL (150-450); Red Blood Count 4.84 10^6 /uL (3.70-4.87); Red Cell Distribution Width 15 % (10-15); White Blood Count 13.6 10^3/uL (3.5-10.8)
[2019-05-28 06:36] LABS: BUN/Creatinine Ratio 13.6 (8-20); Calcium 8.7 mg/dL (8.6-10.3); EGFR African American 76.4 (>60); EGFR Non-African American 63.2 (>60); Potassium 4.1 mmol/L (3.5-5.0)
[2019-05-28] MEDS ORDERED: Pantoprazole TAB * 40 MG TAB PO SCH (09:00)
[2019-05-28] MEDS ORDERED: Rivaroxaban TAB(*) 20 MG TAB PO SCH (09:00)
[2019-05-28] MEDS ORDERED: Magnesium Oxide TAB* 400 MG PO SCH (09:00)
[2019-05-28] MEDS ORDERED: Atorvastatin* 20 MG TAB PO SCH (09:00)
[2019-05-28] MEDS ORDERED: Lisinopril TAB* 10 MG PO SCH (09:00)
[2019-05-28] MEDS ORDERED: Oxybutynin XL TAB* 5 MG PO SCH (09:00)
[2019-05-28] MEDS ORDERED: Metoprolol Succinate XL TAB* 50 MG PO SCH (09:00)
[2019-05-28] MEDS ORDERED: Amiodarone TAB* 200 MG PO SCH (09:00)
[2019-05-28] MEDS ORDERED: Aspirin EC TAB* 81 MG TAB.EC PO SCH (09:00)
[2019-05-28] MEDS ORDERED: CMCS:Desvenlafaxine (NF) 50 MG TAB PO SCH (09:00)
--- NOTE | 2019-05-28 09:45 | HP ---
HISTORY AND PHYSICAL: DATE OF ADMISSION: 05/28/19. ADMITTING PROVIDER: Mohamud Clements MD. PRIMARY CARE PROVIDER: Manoj Swain MD. OUTPATIENT CARDIOLOGISTS: Dr. Parra and Dr. Camacho ([facility]). OUTPATIENT PAIN WAREHOUSE TECHNICIAN: Dr. Saravanan Aguilar. CHIEF COMPLAINT: Shortness of breath, "crummy feeling," cold-like symptoms. HISTORY OF PRESENT ILLNESS: Lily Waite is a 74-year-old female with past medical history of atrial tachycardia; paroxysmal atrial fibrillation (on amiodarone), anxiety; depression; chronic knee pains(on chronic opioid therapy through pain clinic); resolved cardiomyopathy (thought tachyarrhythmia related) ; brachial plexus injury; CAD, GERD; osteoarthritis; pancreatitis. For a few days, she has been feeling as if she has a cold with a runny nose, nonproductive cough, and a sore throat. The sore throat has since resolved. She denied any fever or chills or sick contacts. Upon presentation with EMS, she was satting at 86% on room air and has been unable to be weaned off oxygen in the emergency room. Initial evaluation include leukocytosis of 17.5. She is afebrile. BNP was 46, CRP 12, D-dimer 489. Chest x-ray showed no acute process. Due to the elevated D-dimer, a CT chest angiogram was performed, which showed no evidence of pulmonary embolism and there was a left lower lobe pulmonary nodule 0.4 cm, stable for more than 2 years. She had a small hiatal hernia. She got Solu-Medrol 125 mg and a DuoNeb but neither seemed to improve her symptoms much. She did feel improved with the supplemental oxygen. She denies any chills or wheezing. She does have some sharp chest pain 6-7/10 intensity with coughing or with deeper breath. She is a somewhat poor historian about her shortness of breath, which is occurring at both rest and with exertion. She denies any calf pain, lower extremity swelling, long car rides or flights or immobility. She denies any headaches, night sweats, diarrhea, constipation or abdominal pain. Denies any palpitations, orthopnea, paroxysmal nocturnal dyspnea. She does often have some shortness of breath when climbing up multiple flights of stairs at her home. She denies ever seeing a pulmonary doctor or having pulmonary function tests done. She was referred to hospitalist service for admission for acute hypoxic respiratory failure of uncertain etiology. PAST MEDICAL HISTORY: Paroxysmal atrial fibrillation and atrial tachycardia on Xarelto and amiodarone, hyperlipidemia, depression, anxiety, GERD, osteoarthritis, chronic pain, chronic opioid use, resolved cardiomyopathy of tachyarrhythmia etiology, brachial plexus injury, pancreatitis. CAD with 80% first obtuse marginal stenosis back on 12/10/14 and 55% to 60% mid LAD at that time. MEDICATIONS: Include: 1. Hydromorphone 8 to 16 mg p.o. q.8 hours p.r.n. 2. Xarelto 20 mg p.o. q.p.m. 3. Nitroglycerin 0.4 mg sublingual q.5 minutes p.r.n. 4. Caltrate 600 plus D 1 tab p.o. daily. 5. Aspirin 81 mg daily. 6. Magnesium 500 mg p.o. b.i.d. 7. Cholecalciferol 2000 units p.o. q.p.m. 8. Oxybutynin 15 mg p.o. daily. 9. Pristiq 50 mg p.o. daily. 10. Cyanocobalamin 1000 mcg IM monthly. 11. Lisinopril 10 mg p.o. q.a.m. 12. Amiodarone 100 mg p.o. daily. 13. Guanfacine (Tenex) 1 mg p.o. at bedtime. 14. Prilosec 40 mg p.o. daily. 15. Atorvastatin 20 mg p.o. daily. 16. Metoprolol succinate 50 mg p.o. daily. 17. Movantik 25 mg p.o. daily. 18. Oxycodone 10 mg p.o. q.12 hours p.r.n. ALLERGIES: No known drug allergies. FAMILY HISTORY: Mother at age 85 of heart disease without further details known. Father at age 46 of a heart attack. Sister of polysubstance overdose at age 56. She has adopted her nephew, who is in good health. 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 Denies alcohol or drug use. She desires to be a full code. Healthcare proxy is her , Edward. REVIEW OF SYSTEMS: Complete 14-point review of systems is negative except as per HPI. PHYSICAL EXAMINATION GENERAL APPEARANCE: No acute distress. VITAL SIGNS: Temperature 98, pulse rate 102, respiratory rate 15, saturating 92 % on 3 L nasal cannula, blood pressure 120/87. HEENT: Normocephalic, atraumatic. Pupils are equal, round, and reactive to light. Extraocular motions are intact. No scleral icterus. LUNGS: Distant bilaterally with no wheezing, rales, or rhonchi. CARDIOVASCULAR: Regular rate and rhythm. No murmurs, rubs, or gallops. ABDOMEN: Soft, nontender, nondistended. EXTREMITIES: Warm, well perfused. No peripheral edema. NEUROLOGIC: Cranial nerves II through XII grossly intact. MUSCULOSKELETAL: He has chronic pain to his left greater trochanter that is chronic, that is secondary to bursitis. He points to his left posterior pelvis , where he has pain that is currently well controlled. SKIN: Multiple ecchymoses on the bilateral forearms. DIAGNOSTIC STUDIES/LAB DATA: White count of 17.5, hemoglobin 14.0, hematocrit 42, platelets 263,000. D-dimer 489, absolute neutrophil 15.2. Sodium 129, potassium 4.3, chloride 98, carbon dioxide 23, BUN 13, creatinine 0.89, glucose 154, lactic acid 1.6, magnesium 1.9, total bili 0.7, AST 14, ALT 23, alk phos 104, troponin 0.01, CRP 12.3, BNP 46. Influenza A and B both negative. Chest x-ray formal read pending with no acute process per my wet read. CT chest angiogram with: 1. No pulmonary emboli. 2. Stable left lower lobe pulmonary nodule showing greater than 2-year stability. 3. Small hiatal hernia. EKG demonstrated normal sinus rhythm in II and III and V1, incomplete left bundle branch block, QRS of 118. No ST elevations, depressions, poor R-wave progression. QTc is 481. ASSESSMENT AND PLAN: Lily Waite is a 74-year-old female with past medical history of paroxysmal atrial fibrillation on longstanding amiodarone, CAD, resolved tachyarrhythmia associated cardiomyopathy, anxiety, depression, osteoarthritis, chronic opioid use, presenting with a few days of feeling crummy with cold-like symptoms including sore throat, runny nose, shortness of breath (both exertion and at rest) and with some sharp pleuritic chest pain. She presents with acute hypoxic respiratory failure with satting 86% on room air and was unable be weaned off in the ED despite 125 mg of Solu-Medrol and a DuoNeb treatment. She had modestly elevated D-dimer, but no evidence of pulmonary embolism on CTA. She has relatively distant lung sounds, but denies any history of smoking or secondhand smoking or occupational exposures. 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 It is possible she has viral bronchitis causing nonproductive cough and some pleuritic pain/splinting that may be preventing her from taking deep breath and causing her some hypoxia. Otherwise, she also says she has had a recent echocardiogram just a few months ago that was "perfect ". In our system, the last ECHO was from 05/16/18, which showed grade 1 diastolic dysfunction and EF 50% to 55%. No known history of pulmonary hypertension (RVSP was 22 at that time). She denies any palpitations. Other etiologies for her shortness of breath could include amiodarone lung toxicity ( given her several year use), though she does not have any infiltrates on the CT chest. She denies any tongue/lip swelling nor does she have any upper airway obstruction on exam (she is on ACEI). I plan to continue the DuoNeb p.r.n. q.6 hours. I will follow up labs with CBC and CMP in the morning. Could consider echocardiogram, but BNP was normal and she is not obese and she is not orthopneic or have any paroxysmal nocturnal dyspnea, so has a low pretest probability for acute worsening congestive heart failure. She can eat a heart healthy diet. She meets 2/4 SIRS criteria with leukocytosis and the tachycardia and very well could have been tachypneic if not with the supplemental oxygen. Again, suspect a viral process and may be able to wean off oxygen in the coming days. She is nontoxic appearing. We will continue her other home medications for attention deficit hyperactivity disorder like guanfacine or Pristiq for her anxiety/depression. For Afib continue her metoprolol succinate 50 mg p.o. daily, her Xarelto 20 mg daily. For HLD/CAD continue atorvastatin 20 mg daily, aspirin 81 mg daily. For gastroesophageal reflux disease, her omeprazole 40 mg daily. Continue her home chronic pain medicines. She does attest to pain in her bilateral knees sitting in the hospital bed at this time. Admit to observation status. She is a full code. Medical surrogate is her , Austen. [id number]/[facility] #: [id number] MTDD
[2019-05-28 11:17] VITALS: BP 117/67
[2019-05-28] MEDS ORDERED: Cholecalciferol TAB* 1000 UNITS PO SCH (18:00)
[2019-05-28] MEDS ORDERED: guanFACINE TAB* 1 MG PO SCH (21:00)
--- NOTE | 2019-05-28 21:24 | DS ---
CC: Dr. Manoj Swain * DISCHARGE SUMMARY: DATE OF ADMISSION: 05/28/19 DATE OF DISCHARGE: 05/28/19 PRIMARY CARE PROVIDER: Dr. Manoj Swain. ATTENDING PHYSICIAN: Dr. Nicholas Rosas.* (DICTATED BY JUSTIN KNOTT NP) PRIMARY DIAGNOSIS: 1. Acute hypoxic respiratory failure secondary to viral illness. SECONDARY DIAGNOSES: 1. Atrial fibrillation. 2. Hyperlipidemia. 3. Chronic pain. 4. Coronary artery disease. 5. Depression. 6. Anxiety. 7. Gastroesophageal reflux disease. STUDIES WHILE IN THE HOSPITAL: 1. EKG on 05/27/19 shows normal sinus rhythm with a rate of 98, QTc 481. No ST changes. This EKG appears consistent with previous EKG on file from 2018. 2. Chest x-ray on 05/27/19 reads as no evidence for active cardiopulmonary disease. Small hiatal hernia. 3. Chest thorax CTA on 05/27/19 reads as no pulmonary emboli. Stable left lower lobe pulmonary nodule showing greater than 2-year stability. Based on current Fleischner guidelines, no followup is recommended. Small hiatal hernia. HISTORY OF PRESENT ILLNESS AND HOSPITAL COURSE: Ms. Waite is a 74-year-old female with past medical history of paroxysmal atrial fibrillation and atrial tachycardia, hyperlipidemia, depression, anxiety, GERD, chronic pain, and coronary artery disease, who presented to the emergency room on 05/27/19 with complaints of shortness of breath and cold-like symptoms. Please see the history and physical by Dr. Clements for a complete summary of the events leading up to this hospitalization. In short, the patient reported a runny nose, nonproductive cough, and sore throat. She had no fevers. In the emergency room , she was noted to be saturating at 86% on room air and was unable to be weaned off oxygen at that time. She was noted to have leukocytosis with a white blood count of 17.5 and mild hyponatremia with a sodium of 29. Influenza A and B were negative. She was given a dose of Solu- Medrol as a nebulizer, though remained hypoxic and for that reason, she was admitted by the hospitalist service. The patient had an uneventful night. She was on 4 L overnight, saturating in the mid 90s. This morning, the patient reports feeling well. She reports that her symptoms have essentially resolved. She has no sore throat or congestion. She has a mild cough, though it is significantly improved from yesterday. She denies shortness of breath. She was able to ambulate around the unit with nursing staff and maintain saturations of 95% to 100% on room air while ambulating. White blood count this morning has decreased to 13.6, I think this is simply secondary to viral illness, although she was meeting SIRS criteria with tachycardia and leukocytosis. This is not videotape sales representative of any sort of bacterial infection and rather a viral infection. On exam, she is alert and oriented x4. She has no focal neurological deficits. Her heart has a regular rate and rhythm without murmurs, rubs, or gallops. Lungs are clear to auscultation without rhonchi, wheezes, or rubs. There is no edema. Physical exam was otherwise benign. Ms. Waite is stable for discharge today. Vital signs are as follows: Temp 97.8, heart rate 89, respiratory rate 18, oxygen saturation 95% on room air, blood pressure 117/67. DISCHARGE MEDICATIONS: New medications: 1. Albuterol MDI 1 to 2 puffs q.4 hours p.r.n. shortness of breath. Continued medications: 1. Amiodarone 100 mg p.o. daily. 2. Aspirin 81 mg p.o. daily. 3. Atorvastatin 20 mg p.o. daily. 4. Caltrate 600 plus D 1 tab p.o. daily. 5. Cholecalciferol 2000 units p.o. daily. 6. Vitamin B12 1000 mcg IM monthly. 7. Pristiq 50 mg p.o. daily. 8. Guanfacine 1 mg p.o. at bedtime. 9. Hydromorphone 8 to 16 mg p.o. q.8 hours p.r.n. pain. 10. Lisinopril 10 mg p.o. daily. 11. Magnesium oxide 500 mg p.o. b.i.d. 12. Metoprolol succinate 50 mg p.o. daily. 13. Movantik 25 mg p.o. daily. 14. Nitro 0.4 mg sublingual q.5 minutes p.r.n. chest pain. 15. Omeprazole 40 mg p.o. daily. 16. Oxybutynin 15 mg p.o. daily. 17. Oxycodone 10 mg p.o. q.12 hours p.r.n. pain. 18. Xarelto 20 mg p.o. daily. DISCHARGE PLAN: Ms. Waite will be discharged home. Activity will be as tolerated. Diet will be heart healthy. Medications are noted above. The patient can continue her usual medications, though I have sent in a prescription for an albuterol inhaler for her in the event that she does experience any further shortness of breath related to this viral illness, though I suspect that the viral illness has essentially resolved at this point. She should follow up with her primary care provider in the next 4 to 7 days. She has been instructed to return to the emergency room or nearest hospital for any worsening of symptoms, shortness of breath, lightheadedness, dizziness, chest discomfort, high fevers, chills, night sweats, loss of consciousness, or any other worrisome signs or symptoms. DISCHARGE CONDITION: Stable. DISCHARGE DISPOSITION: Home. This is a summarized report of a complex medical history and hospital stay. For further details, please see the entire medical record. TIME SPENT: Approximately 40 minutes was spent on this discharge. JUSTIN KNOTT, PAT [id number]/[facility] #: [id number] IVONNE
== END 2019-05-28 15:00 | disposition home or self-care (01) ==
LOC: ED 20:35 → MED 05-28 01:57
PROVIDERS: ADMIT Internal Medicine; ATTEND Internal Medicine
DX: J96.01 Acute respiratory failure with hypoxia (principal); I48.91 Unspecified atrial fibrillation; E78.5 Hyperlipidemia, unspecified; I25.10 Atherosclerotic heart disease of native coronary artery without angina pectoris; F32.9 Major depressive disorder, single episode, unspecified; F41.9 Anxiety disorder, unspecified; K21.9 Gastro-esophageal reflux disease without esophagitis; G89.29 Other chronic pain; Z79.82 Long term (current) use of aspirin; Z79.899 Other long term (current) drug therapy; Z79.01 Long term (current) use of anticoagulants; R06.02 Shortness of breath; I50.9 Heart failure, unspecified; R94.31 Abnormal electrocardiogram [ECG] [EKG]
CPT/HCPCS: 36415; 71046; 71275; 80048; 80053; 83036; 83605; 83735; 83880; 84484; 85025; 85379; 86140; 87040; 93005; 96361; 96365; 96375; 99285; A9270-GY; G0378; J2930; J3475; Q9967

== ENCOUNTER 2020-09-04 19:10 | Inpatient (IN) ==
[2020-09-04] MEDS ORDERED: fentaNYL 100 mcg/2 ml 50 MCG/ML VIAL IV ONE ×2 (19:30→23:07)
[2020-09-04 20:20] LABS: ABS Lymphocytes 0.4 10^3/ul (1.0-4.8); ABS Monocytes 0.4 10^3/ul (0-0.8); ABS Neutrophils 12.9 10^3/ul (1.5-7.7); Eosinophil % 0.2 %; Hematocrit 41 % (35-47); Lymphocyte % 2.8 %; Mean Corpuscular HGB Conc 34 g/dL (31-36); Mean Corpuscular Hemoglobin 29 pg (27-31); Mean Corpuscular Volume 85 fL (80-97); Mean Platelet Volume 7.7 fL (7.4-10.4); Platelet Count 256 10^3/uL (150-450); Red Blood Count 4.81 10^6 /uL (3.70-4.87); Red Cell Distribution Width 14 % (10-15); White Blood Count 13.7 10^3/uL (3.5-10.8)
[2020-09-04] MEDS: NS 0.9% 1000 ml BAG 2,000 ML IV ONE (20:35)
[2020-09-04 20:37] LABS: ALT 211 U/L (7-52); Albumin 3.8 g/dL (3.2-5.2); Albumin/Globulin Ratio 1.1 (1-3); Alkaline Phosphatase 435 U/L (34-104); BUN/Creatinine Ratio 13.1 (8-20); Blood Urea Nitrogen 13 mg/dL (6-24); C Reactive Protein 30.02 mg/L (<8.01); CO2 Carbon Dioxide 24 mmol/L (22-32); Calcium 8.8 mg/dL (8.6-10.3); Chloride 96 mmol/L (101-111); EGFR African American 66.5 (>60); Globulin 3.5 g/dL (2-4); Glucose 142 mg/dL (70-100); Lipase 38 U/L (11.0-82.0); Sodium 128 mmol/L (135-145); Total Protein 7.3 g/dL (6.4-8.9)
[2020-09-04 20:45] LABS: Anion Gap 8 mmol/L (2-11)
[2020-09-04] MEDS ORDERED: Iodixanol (CONTRAST) 320 MG/ML 100 ML SDV IV ONE (20:51)
[2020-09-04 22:06] LABS: Potassium Redraw 3.7 mmol/L (3.5-5.0)
[2020-09-04] MEDS ORDERED: Piperacillin/Tazobac ADVAN 3.375 GM in NS 0.9% 100 ml BAG 100 ML IV ONE ×2 (23:07→23:43)
[2020-09-04] MEDS ORDERED: Piperacillin/Tazobac 3.375 GM BAG ONE (23:19)
[2020-09-04] MEDS ORDERED: Ondansetron 4 mg VIAL 2 MG/ML 2 ml VIAL IV PRN (23:43)
[2020-09-04] MEDS ORDERED: Zosyn per Pharmacy NOTE FOLLOW UP SCH (23:45)
[2020-09-04 23:55] LABS: Urine Appearance Clear; Urine Bilirubin Negative (Negative); Urine Blood Negative (Negative); Urine Color Yellow; Urine Glucose Negative (Negative); Urine Ketones Negative (Negative); Urine Nitrite Negative (Negative); Urine Protein Negative (Negative); Urine Specific Gravity 1.034 (1.010-1.030); Urine Urobilinogen Negative (Negative)
[2020-09-05 00:07] LABS: Amylase 47 U/L (29-103)
[2020-09-05] MEDS ORDERED: NS 0.9% 500 ml BAG 500 ML IV ONE (00:08)
[2020-09-05] MEDS: HYDROmorphone 1 MG/1 ML SYRINGE IV SLOW PU PRN ×3 (00:19→09:41)
[2020-09-05 00:41] LABS: Activated Partial Thrombo Time 37.9 seconds (26.0-38.0); INR 4.13 (0.82-1.09)
[2020-09-05] MEDS ORDERED: HYDROmorphone 0.5 MG/0.5 ML SYRINGE IV ONE (02:28)
[2020-09-05] MEDS: NS 0.9% 1000 ml BAG 1,000 ML IV SCH ×3 (02:46→22:45)
[2020-09-05] MEDS: ZOSYN 3.375 GM Q8H per EXTENDED INFUSION IV SCH ×2 (04:17→12:48)
[2020-09-05] MEDS: Heparin 5000 UNITS/ML 1 mL VIAL SUBCUT SCH ×2 (04:25→13:26)
[2020-09-05 05:34] LABS: ABS Lymphocytes 0.6 10^3/ul (1.0-4.8); ABS Monocytes 1.1 10^3/ul (0-0.8); ABS Neutrophils 13.5 10^3/ul (1.5-7.7); Hematocrit 32 % (35-47); Hemoglobin 10.7 g/dL (12.0-16.0); Lymphocyte % 3.7 %; Mean Corpuscular HGB Conc 33 g/dL (31-36); Mean Corpuscular Hemoglobin 28 pg (27-31); Mean Corpuscular Volume 85 fL (80-97); Mean Platelet Volume 7.7 fL (7.4-10.4); Platelet Count 231 10^3/uL (150-450); Red Blood Count 3.77 10^6 /uL (3.70-4.87); Red Cell Distribution Width 14 % (10-15); White Blood Count 15.2 10^3/uL (3.5-10.8)
[2020-09-05 05:54] LABS: BUN/Creatinine Ratio 11.8 (8-20); Calcium 7.4 mg/dL (8.6-10.3); EGFR African American 71.5 (>60); EGFR Non-African American 59.1 (>60); Potassium 3.9 mmol/L (3.5-5.0)
[2020-09-05 05:58] LABS: INR 5.7 (0.82-1.09)
[2020-09-05] MEDS ORDERED: Phytonadione SUBCUT/IM Adult 10 MG/ML AMP (IM or SQ not preferred route) SUBCUT ONE (05:58)
[2020-09-05 06:35] LABS: Albumin 2.8 g/dL (3.2-5.2); Albumin/Globulin Ratio 1.2 (1-3); Globulin 2.4 g/dL (2-4); Indirect Bilirubin 0.8 mg/dL (0.3-1.0); Total Protein 5.2 g/dL (6.4-8.9)
[2020-09-05] MEDS ORDERED: Morphine 2 MG/ML SYRINGE IV ONE (07:25)
[2020-09-05 10:34] LABS: Hematocrit 33 % (35-47); Hemoglobin 11.2 g/dL (12.0-16.0)
[2020-09-05] MEDS: DESVENLAFAXINE 50 MG PO SCH (10:47)
[2020-09-05] MEDS: GUANFACINE 1 MG PO SCH (10:47)
[2020-09-05] MEDS ORDERED: Phytonadione IV (Adult) 10 MG in NS 0.9% 50 ML 50 ML IV ONE (11:30)
[2020-09-05] MEDS: HYDROmorphone 0.5 MG/0.5 ML SYRINGE IV SLOW PU PRN ×4 (13:50→22:43)
[2020-09-05 14:22] LABS: ABS Eosinophils 0.1 10^3/ul (0-0.6); ABS Lymphocytes 0.6 10^3/ul (1.0-4.8); ABS Monocytes 0.9 10^3/ul (0-0.8); ABS Neutrophils 8.1 10^3/ul (1.5-7.7); Eosinophil % 0.9 %; Hematocrit 31 % (35-47); Hemoglobin 10.6 g/dL (12.0-16.0); Lymphocyte % 6.4 %; Mean Corpuscular HGB Conc 34 g/dL (31-36); Mean Corpuscular Hemoglobin 29 pg (27-31); Mean Corpuscular Volume 86 fL (80-97); Mean Platelet Volume 7.6 fL (7.4-10.4); Platelet Count 196 10^3/uL (150-450); Red Blood Count 3.66 10^6 /uL (3.70-4.87); Red Cell Distribution Width 14 % (10-15); White Blood Count 9.7 10^3/uL (3.5-10.8)
[2020-09-05] MEDS ORDERED: cefTRIAXone 1 gm/50 mL NS BAG 1 GM/50 ML BAG IVPB SCH (20:00)
[2020-09-05 23:25] LABS: INR 1.49 (0.82-1.09)
[2020-09-06] MEDS: HYDROmorphone 0.5 MG/0.5 ML SYRINGE IV SLOW PU PRN ×3 (02:48→11:34)
[2020-09-06 05:56] LABS: ABS Eosinophils 0.1 10^3/ul (0-0.6); ABS Lymphocytes 0.6 10^3/ul (1.0-4.8); ABS Monocytes 0.7 10^3/ul (0-0.8); ABS Neutrophils 5.3 10^3/ul (1.5-7.7); Eosinophil % 1.4 %; Hematocrit 31 % (35-47); Hemoglobin 10.5 g/dL (12.0-16.0); Lymphocyte % 8.7 %; Mean Corpuscular HGB Conc 34 g/dL (31-36); Mean Corpuscular Hemoglobin 29 pg (27-31); Mean Corpuscular Volume 85 fL (80-97); Mean Platelet Volume 7.5 fL (7.4-10.4); Platelet Count 187 10^3/uL (150-450); Red Blood Count 3.67 10^6 /uL (3.70-4.87); Red Cell Distribution Width 14 % (10-15); White Blood Count 6.7 10^3/uL (3.5-10.8)
[2020-09-06 05:58] LABS: INR 1.39 (0.82-1.09)
[2020-09-06] MEDS: NS 0.9% 1000 ml BAG 1,000 ML IV SCH ×2 (06:14→23:33)
[2020-09-06 06:15] LABS: Albumin 2.8 g/dL (3.2-5.2); Albumin/Globulin Ratio 1.1 (1-3); BUN/Creatinine Ratio 9.3 (8-20); Calcium 7.7 mg/dL (8.6-10.3); EGFR African American 91.7 (>60); EGFR Non-African American 75.7 (>60); Globulin 2.5 g/dL (2-4); Potassium 3.3 mmol/L (3.5-5.0); Total Bilirubin 4.6 mg/dL (0.2-1.0); Total Protein 5.3 g/dL (6.4-8.9)
[2020-09-06] MEDS ORDERED: Potassium Chlor 10 meq TAB PO ONE (07:18)
[2020-09-06] MEDS: DESVENLAFAXINE 50 MG PO SCH (07:40)
[2020-09-06] MEDS: GUANFACINE 1 MG PO SCH (07:41)
[2020-09-06] MEDS ORDERED: Aspirin EC 81 mg TAB.EC (enteric coated) PO SCH (09:00)
[2020-09-06] MEDS: cefTRIAXone 2 GM ADDV.VIAL 2 GM in NS 0.9% 100 ml BAG 100 ML IV SCH (09:54)
[2020-09-06] MEDS: HYDROmorphone 1 MG/1 ML SYRINGE IV SLOW PU PRN ×3 (14:26→23:31)
[2020-09-07] MEDS: HYDROmorphone 1 MG/1 ML SYRINGE IV SLOW PU PRN ×6 (03:04→22:46)
[2020-09-07 05:26] LABS: ABS Eosinophils 0.2 10^3/ul (0-0.6); ABS Monocytes 0.7 10^3/ul (0-0.8); ABS Neutrophils 4.5 10^3/ul (1.5-7.7); Eosinophil % 2.8 %; Hematocrit 31 % (35-47); Hemoglobin 10.6 g/dL (12.0-16.0); Lymphocyte % 15.2 %; Mean Corpuscular HGB Conc 34 g/dL (31-36); Mean Corpuscular Hemoglobin 29 pg (27-31); Mean Corpuscular Volume 85 fL (80-97); Mean Platelet Volume 7.6 fL (7.4-10.4); Platelet Count 210 10^3/uL (150-450); Red Blood Count 3.68 10^6 /uL (3.70-4.87); Red Cell Distribution Width 14 % (10-15); White Blood Count 6.4 10^3/uL (3.5-10.8)
[2020-09-07 05:50] LABS: Albumin/Globulin Ratio 1.2 (1-3); BUN/Creatinine Ratio 7.1 (8-20); EGFR African American 99.2 (>60); Globulin 2.6 g/dL (2-4); Potassium 3.8 mmol/L (3.5-5.0); Total Protein 5.6 g/dL (6.4-8.9)
[2020-09-07] MEDS: DESVENLAFAXINE 50 MG PO SCH ×2 (08:29→15:47)
[2020-09-07] MEDS: GUANFACINE 1 MG PO SCH ×2 (08:29→15:47)
[2020-09-07] MEDS: cefTRIAXone 2 GM ADDV.VIAL 2 GM in NS 0.9% 100 ml BAG 100 ML IV SCH (08:35)
[2020-09-07] MEDS: NS 0.9% 1000 ml BAG 1,000 ML IV SCH ×2 (08:35→22:15)
[2020-09-07] MEDS ORDERED: Aspirin EC 81 mg TAB.EC (enteric coated) PO SCH (09:00)
[2020-09-07] MEDS ORDERED: fentaNYL 100 mcg/2 ml 50 MCG/ML VIAL ONE (12:39)
[2020-09-07] MEDS ORDERED: Rocuronium 50 mg VIAL 10 mg/ml 5 ml VIAL (50 mg) ONE (12:40)
[2020-09-07] MEDS ORDERED: Lidocaine 2% PF 5 ML VIAL ONE (12:40)
[2020-09-07] MEDS ORDERED: Midazolam 2 mg/2 ml VIAL 1 mg/ml 2 ml VIAL (2 mg) ONE (12:40)
[2020-09-07] MEDS ORDERED: Propofol 10 MG/ML 20 ML BTL ONE (12:40)
[2020-09-07] MEDS ORDERED: INDOMETHACIN 50 MG PR PRN (13:07)
[2020-09-07] MEDS ORDERED: Indomethacin 50 mg SUPP (NF) PR ONE (13:17)
[2020-09-07] MEDS ORDERED: Ondansetron 4 mg VIAL 2 MG/ML 2 ml VIAL IV PRN (13:58)
[2020-09-07] MEDS ORDERED: DiMENhydriNATE IV 50 mg/ml 1 ml VIAL IV PUSH PRN (13:58)
[2020-09-07] MEDS ORDERED: Naloxone 0.4 mg VIAL 0.4 mg/ml 1 ml VIAL IV PRN (13:58)
[2020-09-07] MEDS ORDERED: HYDROmorphone 1 MG/1 ML SYRINGE IV PRN (13:58)
[2020-09-07] MEDS ORDERED: Ondansetron 4 mg VIAL 2 MG/ML 2 ml VIAL ONE (14:17)
[2020-09-07] MEDS: Magic MouthWash2-BEN/MAAL/LIDO/NYST 240 ML BTL (alt formulation) SWISH SWAL SCH (23:02)
[2020-09-08] MEDS: HYDROmorphone 1 MG/1 ML SYRINGE IV SLOW PU PRN ×3 (01:52→08:32)
[2020-09-08 06:15] LABS: Hematocrit 33 % (35-47); Mean Corpuscular HGB Conc 34 g/dL (31-36); Mean Corpuscular Hemoglobin 29 pg (27-31); Mean Corpuscular Volume 85 fL (80-97); Mean Platelet Volume 7.5 fL (7.4-10.4); Platelet Count 235 10^3/uL (150-450); Red Blood Count 3.86 10^6 /uL (3.70-4.87); Red Cell Distribution Width 14 % (10-15); White Blood Count 7.4 10^3/uL (3.5-10.8)
[2020-09-08 06:33] LABS: Albumin/Globulin Ratio 1.1 (1-3); BUN/Creatinine Ratio 3.3 (8-20); Calcium 8.6 mg/dL (8.6-10.3); EGFR African American 73.3 (>60); EGFR Non-African American 60.6 (>60); Globulin 2.7 g/dL (2-4); Potassium 4.2 mmol/L (3.5-5.0); Total Bilirubin 1.3 mg/dL (0.2-1.0); Total Protein 5.7 g/dL (6.4-8.9)
[2020-09-08] MEDS: Magic MouthWash2-BEN/MAAL/LIDO/NYST 240 ML BTL (alt formulation) SWISH SWAL SCH (08:36)
[2020-09-08] MEDS: GUANFACINE 1 MG PO SCH (08:49)
[2020-09-08] MEDS: DESVENLAFAXINE 50 MG PO SCH (08:49)
[2020-09-08] MEDS: cefTRIAXone 2 GM ADDV.VIAL 2 GM in NS 0.9% 100 ml BAG 100 ML IV SCH (08:49)
[2020-09-08] MEDS ORDERED: HYDROmorphone 8mg TAB (NF) PO PRN (11:02)
[2020-09-08 11:35] VITALS: BP 140/70
== END 2020-09-08 14:45 | disposition home or self-care (01) | DRG 445 ==
LOC: ED 19:10 → MEDTELE 09-05 01:02
PROVIDERS: ADMIT Internal Medicine; ATTEND Internal Medicine
PROC: O.GIERC (2020-09-07 15:30)

== ENCOUNTER 2021-11-03 11:05 | Observation (INO) ==
[2021-11-03 12:07] LABS: ABS Basophils 0.1 10^3/ul (0-0.2); ABS Eosinophils 0.1 10^3/ul (0-0.6); ABS Lymphocytes 1.3 10^3/ul (1.0-4.8); ABS Monocytes 1.2 10^3/ul (0-0.8); ABS Neutrophils 8.4 10^3/ul (1.5-7.7); Eosinophil % 1.1 %; Hematocrit 44 % (35-47); Hemoglobin 15.1 g/dL (12.0-16.0); Lymphocyte % 11.8 %; Mean Corpuscular HGB Conc 35 g/dL (31-36); Mean Corpuscular Hemoglobin 31 pg (27-31); Mean Corpuscular Volume 89 fL (80-97); Mean Platelet Volume 7.7 fL (7.4-10.4); Platelet Count 286 10^3/uL (150-450); Red Blood Count 4.94 10^6 /uL (3.70-4.87); Red Cell Distribution Width 13 % (10-15)
[2021-11-03 12:39] LABS: Albumin 4.1 g/dL (3.2-5.2); Albumin/Globulin Ratio 1.6 (1-3); Calcium 9.1 mg/dL (8.6-10.3); Globulin 2.6 g/dL (2-4); Magnesium 2.2 mg/dL (1.9-2.7); Potassium 4.1 mmol/L (3.5-5.0); Total Bilirubin 0.9 mg/dL (0.2-1.0); Total Protein 6.7 g/dL (6.4-8.9); eGFR CKD-EPI 62.1 (>60)
[2021-11-03 12:52] LABS: TSH Ultra Thyroid Stim Horm 0.77 mcIU/mL (0.34-5.60)
[2021-11-03 13:21] LABS: High Sensitivity Troponin 1 Hr 3 pg/mL (<15)
[2021-11-03] MEDS: NS 0.9% w/ 20 Meq KCL 1000 ml 1,000 ML IV SCH (18:50)
[2021-11-03] MEDS ORDERED: Dextran 70/Hypromellose Tears Eye Drops 15 ml BTL (for Artificials Tears) LEFT EYE PRN (19:59)
[2021-11-03 20:08] LABS: C Reactive Protein 9.06 mg/L (<8.01)
[2021-11-03] MEDS ORDERED: HYDROmorphone 8mg TAB (NF) PO PRN (21:00)
[2021-11-04 01:52] LABS: Urine Appearance Cloudy; Urine Bilirubin Negative (Negative); Urine Blood 3+ (Negative); Urine Color Amber; Urine Glucose Negative (Negative); Urine Ketones Negative (Negative); Urine Nitrite Negative (Negative); Urine Protein Negative (Negative); Urine Specific Gravity 1.009 (1.002-1.030); Urine Urobilinogen Negative (Negative)
[2021-11-04 02:09] LABS: Urine Bacteria 3+ (Absent); Urine Red Blood Cell 1+(3-5/hpf) (Absent); Urine Squamous Epithelial Cell Present (Absent); Urine White Blood Cell Trace(0-5/hpf) (Absent)
[2021-11-04] MEDS: NS 0.9% w/ 20 Meq KCL 1000 ml 1,000 ML IV SCH (02:47)
[2021-11-04 08:19] LABS: Hematocrit 39 % (35-47); Hemoglobin 13.2 g/dL (12.0-16.0); Mean Corpuscular HGB Conc 34 g/dL (31-36); Mean Corpuscular Hemoglobin 30 pg (27-31); Mean Corpuscular Volume 89 fL (80-97); Mean Platelet Volume 7.8 fL (7.4-10.4); Platelet Count 247 10^3/uL (150-450); Red Blood Count 4.42 10^6 /uL (3.70-4.87); Red Cell Distribution Width 13 % (10-15); White Blood Count 7.7 10^3/uL (3.5-10.8)
[2021-11-04 08:25] LABS: ABS Lymphocytes 0.9 10^3/ul (1.0-4.8); ABS Monocytes 0.7 10^3/ul (0-0.8); ABS Neutrophils 5.8 10^3/ul (1.5-7.7); Eosinophil % 0.2 %; Lymphocyte % 12.6 %
[2021-11-04 08:55] LABS: Calcium 8.6 mg/dL (8.6-10.3); Potassium 4.4 mmol/L (3.5-5.0); eGFR CKD-EPI 71.8 (>60)
[2021-11-04 11:32] VITALS: BP 147/82
[2021-11-04] MEDS ORDERED: Gadoteridol (CONTRAST) 279.3 MG/ML 10 ML IV ONE (12:34)
== END 2021-11-04 13:25 | disposition home or self-care (01) ==
LOC: EDHOLD 11:05 → ED 11:05 → SUATTDRO 18:46 → MED 20:50
PROVIDERS: ADMIT Internal Medicine; ATTEND Internal Medicine